=== PATIENT | male | born 1935 | race Caucasian/White ===

== ENCOUNTER 2017-08-19 09:32 | Inpatient (IN) | payer MEDICARE, OTHER ==
[2017-08-19] MEDS ORDERED: SODIUM CHLORIDE 0.9% 500 ML IV STA (10:22)
[2017-08-19] MEDS ORDERED: RX INFO: IV CONTRAST WAS GIVEN 1 EACH MISC MISCELLANE PRN (10:22)
[2017-08-19] MEDS ORDERED: ONDANSETRON 4 MG/2 ML VIAL IVP STA (10:22)
--- NOTE | 2017-08-19 10:24 | ED ---
General Adult HPI <Jer Kelly J - Last Filed: 08/19/17 12:26> - General Source: family, RN notes reviewed Mode of arrival: wheelchair Limitations: physical limitation <Fadia Chappell - Last Filed: 08/19/17 12:30> - General Chief complaint: Abdominal Pain Stated complaint: Nausea Time Seen by Provider: 08/19/17 10:12 - History of Present Illness Initial comments: 82-year-old male who is nonverbal due to a stroke in the past presents with chief complaint of abdominal pain. This started yesterday associated with vomiting. The doctor and referred here. Patient's weight is bedside. She states that he points to his right upper side for the pain. She states there was vomiting no blood in the vomit no change in bowel or bladder habits. No abdominal surgeries in the past. They state that the doctor they saw was concerned that it may see his gallbladder. Patient is unable to answer other questions regarding review of systems. Patient states he hasn't been complaining of anything else to her. (Fadia Chappell) - Related Data Home Medications Medication Instructions Recorded Confirmed Lisinopril [Prinivil] 40 mg PO DAILY 08/15/14 08/19/17 Sertraline [Zoloft] 100 mg PO DAILY 08/15/14 08/19/17 amLODIPine [Norvasc] 10 mg PO DAILY 08/15/14 08/19/17 Simvastatin [Zocor] 40 mg PO HS 05/29/15 08/19/17 levETIRAcetam [Keppra] 1,000 mg PO BID 10/23/15 08/19/17 Allopurinol [Zyloprim] 300 mg PO DAILY 12/15/15 08/19/17 Oxybutynin Chloride [Ditropan] 10 mg PO DAILY 12/15/15 08/19/17 Aspirin 325 mg PO DAILY 07/11/17 08/19/17 Atorvastatin Calcium [Lipitor] 10 mg PO DAILY 07/11/17 08/19/17 Dicyclomine [Bentyl] 10 mg PO DAILY 07/11/17 08/19/17 Isosorbide Mononitrate ER [Imdur] 30 mg PO DAILY 07/11/17 08/19/17 Previous Rx's Medication Instructions Recorded Tamsulosin [Flomax] 0.4 mg PO DAILY #30 cap 08/12/15 Allergies Allergy/AdvReac Type Severity Reaction Status Date / Time No Known Allergies Allergy Verified 08/19/17 10:23 Review of Systems ROS Other: All systems not noted in ROS Statement are negative. <Jer Kelly - Last Filed: 08/19/17 12:26> ROS Other: All systems not noted in ROS Statement are negative. <Fadia Chappell - Last Filed: 08/19/17 12:30> ROS Statement: Those systems with pertinent positive or pertinent negative responses have been documented in the HPI. 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 Lithotripsy 2012, 2013 Past Anesthesia/Blood Transfusion Reactions: No Reported Reaction Additional Past Anesthesia/Blood Transfusion Reaction / Comment(s): STOKE DURING CABG SURGERY Type of Cardiac Device: Permanent Pacemaker Device Placement Date:: 2014 Past Psychological History: No Psychological Hx Reported Smoking Status: Never smoker Past Alcohol Use History: None Reported Past Drug Use History: None Reported - Past Family History Father Family Medical History: Cancer, COPD Additional Family Medical History / Comment(s): prostate cancer Mother Additional Family Medical History / Comment(s): Heart valve replacement <Fadia Chappell - Last Filed: 08/19/17 12:30> General Exam Limitations: physical limitation General appearance: alert, in no apparent distress Head exam: Present: atraumatic, normocephalic, normal inspection Neck exam: Present: normal inspection. Absent: tenderness, meningismus, lymphadenopathy Respiratory exam: Present: normal lung sounds bilaterally. Absent: respiratory distress, wheezes, rales, rhonchi, stridor Cardiovascular Exam: Present: regular rate, normal rhythm, normal heart sounds. Absent: systolic murmur, diastolic murmur, rubs, gallop, clicks GI/Abdominal exam: Present: soft, tenderness (Mild to the right side), normal bowel sounds. Absent: distended, guarding, rebound, rigid Neurological exam: Present: alert Skin exam: Present: warm, dry, intact <Fadia Chappell - Last Filed: 08/19/17 12:30> Vital Signs 08/19/17 09:52 Temperature 98.6 F Pulse Rate 72 Respiratory 18 Rate Blood Pressure 162/80 O2 Sat by Pulse 98 Oximetry Medical Decision Making - Lab Data Result diagrams: 08/19/17 10:35 08/19/17 10:35 <Jer Kelly - Last Filed: 08/19/17 12:26> - Lab Data Result diagrams: 08/19/17 10:35 08/19/17 10:35 - Radiology Data Radiology results: report reviewed, image reviewed <Fadia Chappell - Last Filed: 08/19/17 12:30> - Medical Decision Making The patient was seen and examined. All diagnostics were reviewed. This felt as though he would require admission. Case is discussed with Dr. Valdes from internal medicine and she is agreeable with admission with GI to consult. The case also was discussed with the PA and agree with the findings as documented. ( Jer Kelly) 82-year-old male presents to the emergency department with a chief complaint of abdominal pain. This time CAT scan and lab results have been reviewed. At this time we will admit to the sound physicians in consult GI. This was discussed with the family and the on agreement the plan. (Fadia Chappell) - Lab Data Lab Results 08/19/17 08/19/17 08/19/17 Range/Units 10:35 10:35 10:35 WBC 11.7 H (3.8-10.6) k/uL RBC 4.25 L (4.30-5.90) m/uL Hgb 11.6 L (13.0-17.5) gm/dL Hct 38.1 L (39.0-53.0) % MCV 89.7 (80.0-100.0) fL MCH 27.2 (25.0-35.0) pg MCHC 30.3 L (31.0-37.0) g/dL RDW 14.2 (11.5-15.5) % Plt Count 293 (150-450) k/uL Neutrophils % 87 % Lymphocytes % 7 % Monocytes % 4 % Eosinophils % 1 % Basophils % 0 % Neutrophils # 10.1 H (1.3-7.7) k/uL Lymphocytes # 0.9 L (1.0-4.8) k/uL Monocytes # 0.5 (0-1.0) k/uL Eosinophils # 0.1 (0-0.7) k/uL Basophils # 0.0 (0-0.2) k/uL Hypochromasia Marked Poikilocytosis Slight PT (9.0-12.0) sec INR (<1.2) APTT (22.0-30.0) sec Sodium 137 (137-145) mmol/L Potassium 4.3 (3.5-5.1) mmol/L Chloride 99 (98-107) mmol/L Carbon Dioxide 27 (22-30) mmol/L Anion Gap 11 mmol/L BUN 18 (9-20) mg/dL Creatinine 0.76 (0.66-1.25) mg/dL Est GFR (MDRD) Af Amer >60 (>60 ml/min/1.73 sqM) Est GFR (MDRD) Non-Af >60 (>60 ml/min/1.73 sqM) Glucose 118 H (74-99) mg/dL Plasma Lactic Acid [place] 1.2 (0.7-2.0) mmol/L Calcium 9.3 (8.4-10.2) mg/dL Total Bilirubin 0.3 (0.2-1.3) mg/dL AST 16 L (17-59) U/L ALT 30 (21-72) U/L Alkaline Phosphatase 81 (38-126) U/L Total Protein 5.9 L (6.3-8.2) g/dL Albumin 3.6 (3.5-5.0) g/dL Amylase 35 (30-110) U/L Lipase 104 (23-300) U/L Urine Color Urine Appearance (Clear) Urine pH (5.0-8.0) Ur Specific [place] (1.001-1.035) Urine Protein (Negative) Urine Glucose (UA) (Negative) Urine Ketones (Negative) Urine Blood (Negative) Urine Nitrite (Negative) Urine Bilirubin (Negative) Urine Urobilinogen (<2.0) mg/dL Ur Leukocyte Esterase (Negative) 08/19/17 08/19/17 Range/Units 10:35 10:35 WBC (3.8-10.6) k/uL RBC (4.30-5.90) m/uL Hgb (13.0-17.5) gm/dL Hct (39.0-53.0) % MCV (80.0-100.0) fL MCH (25.0-35.0) pg MCHC (31.0-37.0) g/dL RDW (11.5-15.5) % Plt Count (150-450) k/uL Neutrophils % % Lymphocytes % % Monocytes % % Eosinophils % % Basophils % % Neutrophils # (1.3-7.7) k/uL Lymphocytes # (1.0-4.8) k/uL Monocytes # (0-1.0) k/uL Eosinophils # (0-0.7) k/uL Basophils # (0-0.2) k/uL Hypochromasia Poikilocytosis PT 9.6 (9.0-12.0) sec INR 1.0 (<1.2) APTT 24.8 (22.0-30.0) sec Sodium (137-145) mmol/L Potassium (3.5-5.1) mmol/L Chloride (98-107) mmol/L Carbon Dioxide (22-30) mmol/L Anion Gap mmol/L BUN (9-20) mg/dL Creatinine (0.66-1.25) mg/dL Est GFR (MDRD) Af Amer (>60 ml/min/1.73 sqM) Est GFR (MDRD) Non-Af (>60 ml/min/1.73 sqM) Glucose (74-99) mg/dL Plasma Lactic Acid [place] (0.7-2.0) mmol/L Calcium (8.4-10.2) mg/dL Total Bilirubin (0.2-1.3) mg/dL AST (17-59) U/L ALT (21-72) U/L Alkaline Phosphatase (38-126) U/L Total Protein (6.3-8.2) g/dL Albumin (3.5-5.0) g/dL Amylase (30-110) U/L Lipase (23-300) U/L Urine Color Light Yellow Urine Appearance Clear (Clear) Urine pH 6.0 (5.0-8.0) Ur Specific [place] 1.014 (1.001-1.035) Urine Protein Negative (Negative) Urine Glucose (UA) Negative (Negative) Urine Ketones Trace H (Negative) Urine Blood Negative (Negative) Urine Nitrite Negative (Negative) Urine Bilirubin Negative (Negative) Urine Urobilinogen <2.0 (<2.0) mg/dL Ur Leukocyte Esterase Negative (Negative) Disposition <Jer Kelly - Last Filed: 08/19/17 12:26> Decision Date: 08/19/17 Decision Time: 12:30 <Fadia Chappell - Last Filed: 08/19/17 12:30> Clinical Impression: Colitis, Abdominal pain Disposition: ADMITTED IP TO THIS HOSP Condition: Stable Referrals: Ariel Keith MD [Primary Care Provider] - 1-2 days
[2017-08-19 11:06] LABS: ALT 30 U/L (21-72); AST 16 U/L (17-59); Albumin 3.6 g/dL (3.5-5.0); Alkaline Phosphatase 81 U/L (38-126); Amylase 35 U/L (30-110); Anion Gap 11 mmol/L; Basophils % (A) 0 %; Blood Urea Nitrogen 18 mg/dL (9-20); Calcium 9.3 mg/dL (8.4-10.2); Carbon Dioxide 27 mmol/L (22-30); Chloride 99 mmol/L (98-107); Eosinophils # (A) 0.1 k/uL (0-0.7); Eosinophils % (A) 1 %; Glucose 118 mg/dL (74-99); HCT 38.1 % (39.0-53.0); HGB 11.6 gm/dL (13.0-17.5); Hypochromasia Marked; Lipase 104 U/L (23-300); Lymphocytes # (A) 0.9 k/uL (1.0-4.8); Lymphocytes % (A) 7 %; MCH 27.2 pg (25.0-35.0); MCHC 30.3 g/dL (31.0-37.0); MCV 89.7 fL (80.0-100.0); Mean Platelet Volume 7.2; Monocytes # (A) 0.5 k/uL (0-1.0); Monocytes % (A) 4 %; Neutrophils # (A) 10.1 k/uL (1.3-7.7); Neutrophils % (A) 87 %; Platelet Count 293 k/uL (150-450); Poikilocytosis Slight; Potassium 4.3 mmol/L (3.5-5.1); RBC 4.25 m/uL (4.30-5.90); RDW 14.2 % (11.5-15.5); Sodium 137 mmol/L (137-145); Total Bilirubin 0.3 mg/dL (0.2-1.3); Total Protein 5.9 g/dL (6.3-8.2); WBC 11.7 k/uL (3.8-10.6)
[2017-08-19 11:14] LABS: Partial Thromboplastin Time 24.8 sec (22.0-30.0); Prothrombin Time 9.6 sec (9.0-12.0)
[2017-08-19 12:07] LABS: Appearance,Urine Clear (Clear); Color,Urine Light Yellow; Glucose,Urine (UA) Negative (Negative); Protein,Urine Negative (Negative); Specific Gravity,Urine 1.014 (1.001-1.035)
--- NOTE | 2017-08-19 12:07 | CT ---
EXAMINATION TYPE: CT abdomen pelvis w con DATE OF EXAM: 08/19/2017 COMPARISON: 07/11/2017 HISTORY: Nausea, pain, prior abn CT of GB CT DLP: 1761.5 mGycm Automated exposure control for dose reduction was used. TECHNIQUE: Helical acquisition of images was performed from the lung bases through the pelvis. CONTRAST: Performed without Oral Contrast and with IV Contrast, patient injected with 100 mL of Omnipaque 300. FINDINGS: LUNG BASES: Chronic right pleural thickening, pleural calcifications, and right basilar atelectasis a s well as linear pleural parenchymal right middle lobe and lingular scarring are seen. Pleural parenc hymal scarring is also seen at the lung bases. Post CABG changes are noted of the mediastinum. There is a small hiatal hernia. Mildly enlarged right hilar lymph node measures 1.4 cm in addition to calci fied right hilar nodes. Pleural thickening is seen anteriorly as well around the right lung. LIVER/GB: Cholelithiasis is again demonstrated. No right upper quadrant fat stranding is seen. Arteri ally enhancing 5 mm hepatic lesion is seen on series 3 image 28 near the hepatic dome within the left lobe of the liver. This is wedge-shaped in may represent an arterial portal shunt. No other focal he patic lesions are seen. No intrahepatic biliary ductal dilatation. PANCREAS: Mild pancreatic parenchymal atrophy. No ductal dilatation. SPLEEN: Benign granulomas are scattered throughout the splenic parenchyma. ADRENALS: No significant abnormality is seen. KIDNEYS: There is chronic right UPJ obstruction possibly from stricturing with mild right hydronephro sis and large renal sinus cysts, unchanged from the prior. 1.7 cm lower pole right renal calculus is noted with at least 3 small left renal calculi measuring up to 4 mm. Left lower pole renal cyst is ag ain seen measuring approximately 3.8 cm. FREE AIR: No free air is visualized. REPRODUCTIVE ORGANS: No significant abnormality is seen URINARY BLADDER: No significant abnormality is seen. ADENOPATHY: No greater than 1 cm short axis lymph nodes are seen within the abdomen or pelvis. OSSEOUS STRUCTURES: Extensive degenerative changes are seen in the femoral acetabular joints, left g reater than right. Moderate multilevel degenerative changes of the lumbosacral spine and thoracolumba r spine are present. BOWEL: There is gastric dilatation within air-fluid and fat fluid level. This is similar to the prior exam. There is thickening of the descending duodenum such as on series 3 image 45 measuring up to 9 mm in thickness with perienteric inflammatory change as there is obscuration of the fat plane between the pancreatic head and the duodenum on series 3 image 43. Possible luminal narrowing is also seen w ithin the descending duodenum on series 3 image 38 through 42 and the lumen is not well-defined. This is also seen on coronal series 7 image 37 and 38 as a approximately 3.0 cm area of stricturing or na rrowing. OTHER: Bilateral mild retroareolar gynecomastia is noted. IMPRESSION: 1. MARKED GASTRECTASIS SECONDARY TO CIRCUMFERENTIAL THICKENING OF THE DESCENDING DUODENUM AND LUMINAL NARROWING. MILD INFLAMMATORY CHANGES ARE SEEN. DUODENITIS IS SUSPECTED OF INFLAMMATORY, INFECTIOUS, OR NEOPLASTIC ETIOLOGY. 2. CHRONIC RIGHT URETEROPELVIC OBSTRUCTION CREATING MILD RIGHT HYDRONEPHROSIS WITH BILATERAL RENAL CY STS AND RIGHT RENAL SINUS CYST. 3. CALCIFIED RIGHT PLEURAL PLAQUING, CHRONIC THICKENING AND RIGHT BASILAR OPACITY MAY REPRESENT ASBES TOS EXPOSURE. CT THORAX IS RECOMMENDED ON A NONEMERGENT BASIS FOR FULL EVALUATION OF THE CHEST.
[2017-08-19 12:08] LABS: Bilirubin,Urine Negative (Negative); Blood,Urine Negative (Negative); Ketones,Urine Trace (Negative); Leukocyte Esterase,Urine Negative (Negative); Nitrite,Urine Negative (Negative); Urobilinogen,Urine <2.0 mg/dL (<2.0)
[2017-08-19] MEDS ORDERED: PANTOPRAZOLE 40 MG/10 ML VIAL IVP STA (12:12)
[2017-08-19] MEDS ORDERED: NALOXONE 0.4 MG/ML 1 ML VIAL IV PRN (12:30)
[2017-08-19] MEDS ORDERED: HYDROmorphone 0.5 MG/0.5 ML SYRINGE IVP STA (12:54)
[2017-08-19] MEDS ORDERED: CALCIUM CARBONATE 500 MG CHEWABLE PO PRN (13:36)
[2017-08-19] MEDS ORDERED: ACETAMINOPHEN TAB 325 MG TAB PO PRN (13:36)
[2017-08-19] MEDS ORDERED: ONDANSETRON 4 MG/2 ML VIAL IVP PRN (13:36)
--- NOTE | 2017-08-19 14:01 | P.HPIM ---
History of Present Illness H&P Date: 08/19/17 Chief Complaint: abdominal pain Patient is an 82-year-old male with a past medical history of congestive heart failure, stroke with resultant aphasia and right-sided weakness , hypertension, seizure disorder, and prior kidney stones presented to the ER from Dr. Keith's office with complaints of abdominal pain. In the ER he underwent an extensive evaluation. He was found have a slightly elevated white blood cell count 11.7. CT of the abdomen and pelvis showed cholelithiasis, duodenitis, and mild right sided hydronephrosis. He was given IV fluids, Protonix, Zofran, and a dose of pain medications. Arrangements were made for admission. Patient seen and examined at bedside. He is nonverbal and answers all questions. She states that he has been struggling with abdominal pain since fall. Initially they thought it was due to some phantom limb pain from his prior BKA. He was seen here in June [address]. He followed up to Dr. Keith's office in a week and a half ago and was told that it was likely secondary to his gallstones. He was prescribed pain medicine. Yesterday he started having nausea and vomiting. call Dr. Keith who ordered a prescription of antinausea medicine, and told him not to eat or drink anything overnight. He was seen in the office this morning with his increased pain Dr. Keith sent him to the emergency department. His reports that his appetite has been decreasing since the fall. He has not ate much since last Friday. She states that he is complaining of the pain more regularly. He had a total of 2 episodes of vomiting yesterday. She has noted increased wheeze for the last 3 weeks but no definitive cough. She denies any choking episodes. Review of Systems Unable to obtain review of systems secondary to patient having a aphasia and not being able to follow commands consistently. As able to obtain in HPI. 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 Lithotripsy 2012, 2013 Past Anesthesia/Blood Transfusion Reactions: No Reported Reaction Additional Past Anesthesia/Blood Transfusion Reaction / Comment(s): STOKE DURING CABG SURGERY Type of Cardiac Device: Permanent Pacemaker Device Placement Date:: 2014 Past Psychological History: No Psychological Hx Reported Smoking Status: Never smoker Past Alcohol Use History: None Reported Past Drug Use History: None Reported Additional History: Lives with his , typically uses a sideboard and a power wheelchair. - Past Family History Father Family Medical History: Cancer, COPD Additional Family Medical History / Comment(s): prostate cancer Mother Additional Family Medical History / Comment(s): Heart valve replacement Medications and Allergies Home Medications Medication Instructions Recorded Confirmed Type Lisinopril [Prinivil] 40 mg PO DAILY 08/15/14 08/19/17 History Sertraline [Zoloft] 100 mg PO DAILY 08/15/14 08/19/17 History amLODIPine [Norvasc] 10 mg PO DAILY 08/15/14 08/19/17 History Simvastatin [Zocor] 40 mg PO HS 05/29/15 08/19/17 History Tamsulosin [Flomax] 0.4 mg PO DAILY #30 cap 08/12/15 08/19/17 Rx levETIRAcetam [Keppra] 1,000 mg PO BID 10/23/15 08/19/17 History Allopurinol [Zyloprim] 300 mg PO DAILY 12/15/15 08/19/17 History Oxybutynin Chloride [Ditropan] 10 mg PO DAILY 12/15/15 08/19/17 History Aspirin 325 mg PO DAILY 07/11/17 08/19/17 History Atorvastatin Calcium [Lipitor] 10 mg PO DAILY 07/11/17 08/19/17 History Dicyclomine [Bentyl] 10 mg PO DAILY 07/11/17 08/19/17 History Isosorbide Mononitrate ER [Imdur] 30 mg PO DAILY 07/11/17 08/19/17 History Allergies Allergy/AdvReac Type Severity Reaction Status Date / Time No Known Allergies Allergy Verified 08/19/17 10:23 Physical Exam Osteopathic Statement: *. No significant issues noted on an osteopathic structural exam other than those noted in the History and Physical/Consult. Vitals: Vital Signs Temp Pulse Resp BP Pulse Ox 08/19/17 09:52 98.6 F 72 18 162/80 98 Intake and Output 08/18/17 08/19/17 08/19/17 22:59 06:59 14:59 Other: Weight 83.915 kg Patient Weight 08/20/17 06:59 Weight 83.915 kg General: non toxic, mild distress due to pain, appears at stated age, normal weight Derm: no unusual rashes/lesions no unusual ecchymoses, warm, dry Head: atraumatic, normocephalic, symmetric Eyes: EOMI, no lid lag, anicteric sclera, pupils equal round reactive to light ENT: Nose and ears atraumatic, no thrush, no pharyngeal erythema Neck: No thyromegaly, no cervical lymphadenopathy, trachea midline, supple Mouth: no lip lesion, mucus membranes moist Cardiovascular: S1S2 reg, no murmur, positive posterior tibial pulse left leg, no edema, capillary refill less than 2 seconds Lungs: CTA bilateral, no rhonchi, no rales , no accessory muscle use Abdominal: soft, nontender to palpation, no guarding, no appreciable organomegaly, normal bowel sounds Ext: no gross muscle atrophy, muscle strength 5 out of 5 in LUE and LLE, contracture of RUE with strength 2-3/5, no contractures, right leg BKA Neuro: CN II-XI grossly intact, decreased light touch right face and right upper extremity, normal left face and left upper extremity Psych: Alert, awake, flat affect Results CBC & Chem 7: 08/19/17 10:35 08/19/17 10:35 Labs: Abnormal Lab Results - Last 24 Hours (Table) 08/19/17 08/19/17 08/19/17 Range/Units 10:35 10:35 10:35 WBC 11.7 H (3.8-10.6) k/uL RBC 4.25 L (4.30-5.90) m/uL Hgb 11.6 L (13.0-17.5) gm/dL Hct 38.1 L (39.0-53.0) % MCHC 30.3 L (31.0-37.0) g/dL Neutrophils # 10.1 H (1.3-7.7) k/uL Lymphocytes # 0.9 L (1.0-4.8) k/uL Glucose 118 H (74-99) mg/dL AST 16 L (17-59) U/L Total Protein 5.9 L (6.3-8.2) g/dL Urine Ketones Trace H (Negative) CT scan - abdomen: report reviewed CT scan - pelvis: report reviewed Thrombosis Risk Factor Assmnt - DVT/VTE Prophylaxis DVT/VTE Prophylaxis: Mechanical Prophylaxis ordered, Contraindicated - See note - Choose All That Apply Each Risk Factor Represents 3 Points: Age 75 years or older Thrombosis Risk Factor Assessment Total Risk Factor Score: 3 Thrombosis Risk Factor Assessment Level: Moderate Risk Assessment and Plan Assessment: Duodenitis - IVF - Protonix IVP - Full liquid diet - GI evaluation - antiemeitcs - no indication for ABX at this time Cholelithiasis - no signs of cholecystitis or cholangitis Anemia - check iron studies - follow CBC Chronic diastolic CHF, EF 50-55% - not on any diuretics at baseline - consult ACEI, not chronically on BB CVA - hold ASA due to possible need for scope - Statin ASCAD - ASA, Statin Seizure disorder - keppra HTN, controlled - continue home meds - follow BP Surrogate decision-maker: Rose Ayala CODE STATUS:Full, does not want to be kept alive if no hope for meaningful recovery DVT prophylaxis: SCDs Discussed with: Patient, , ED physician Anticipated discharge: 24-[address]: Home possible home health A total of 70 minutes was spent on the care of this complex patient more than 50 % of the time was spent in counseling and care coordination.
[2017-08-19] MEDS: DEXTROSE 5%-0.45% NACL 1,000 ML IV SCH (16:22)
[2017-08-19] MEDS: MORPHINE SULFATE 2 MG/ML SYRINGE IV PRN ×2 (18:48→22:15)
[2017-08-19] MEDS: PANTOPRAZOLE 40 MG/10 ML VIAL IV SCH (22:15)
[2017-08-19] MEDS: levETIRAcetam 500 MG TAB PO SCH (22:15)
[2017-08-20] MEDS: DEXTROSE 5%-0.45% NACL 1,000 ML IV SCH ×2 (05:39→17:07)
[2017-08-20] MEDS: levETIRAcetam 500 MG TAB PO SCH ×2 (08:39→19:17)
[2017-08-20] MEDS: ISOSORBIDE MONONITRATE ER 30 MG TAB.ER.24H PO SCH (08:39)
[2017-08-20] MEDS: TAMSULOSIN 0.4 MG CAP.ER.24H PO SCH (08:39)
[2017-08-20] MEDS: LISINOPRIL 20 MG TAB PO SCH (08:39)
[2017-08-20] MEDS: PANTOPRAZOLE 40 MG/10 ML VIAL IV SCH ×2 (08:39→19:17)
[2017-08-20] MEDS: amLODIPine 10 MG TAB PO SCH (08:40)
[2017-08-20 08:50] LABS: Anion Gap 5 mmol/L; Blood Urea Nitrogen 24 mg/dL (9-20); Calcium 8.4 mg/dL (8.4-10.2); Carbon Dioxide 23 mmol/L (22-30); Chloride 107 mmol/L (98-107); Glucose 103 mg/dL (74-99); Magnesium 1.8 mg/dL (1.6-2.3); Phosphorus 2.7 mg/dL (2.5-4.5); Potassium 4.8 mmol/L (3.5-5.1); Sodium 135 mmol/L (137-145)
[2017-08-20 09:00] LABS: HCT 29.7 % (39.0-53.0); Hypochromasia Marked; MCH 27.4 pg (25.0-35.0); MCHC 29.6 g/dL (31.0-37.0); MCV 92.6 fL (80.0-100.0); Mean Platelet Volume 8.1; Platelet Count 227 k/uL (150-450); RDW 15.5 % (11.5-15.5); WBC 8.8 k/uL (3.8-10.6)
[2017-08-20 09:14] LABS: HGB 8.8 gm/dL (13.0-17.5)
[2017-08-20 10:49] VITALS: BMI 23.7
--- NOTE | 2017-08-20 12:01 | P.PN ---
Subjective Progress Note Date: 08/20/17 Principal diagnosis: abdominal pain patient with some nausea today, no emesis, no fever, mild abdominal discomfort Objective - Vital Signs Vital signs: Vital Signs Temp 98.5 F 08/20/17 07:00 Pulse 91 08/20/17 08:00 Resp 18 08/20/17 08:00 BP 119/76 08/20/17 07:00 Pulse Ox 96 08/20/17 07:00 Intake & Output 08/19/17 08/20/17 08/20/17 18:59 06:59 18:59 Intake Total 400 Balance 400 Weight 83.915 kg 83.915 kg Intake: Intake, IV Titration 400 Amount Dextrose 5%-0.45% NaCl 1, 400 000 ml @ 75 mls/hr IV . [id number] BASILIO Rx#:[id number] Other: Voiding Method Urinal Urinal Urinal # Voids 3 - Exam gen:alert and oriented lungs:clear to auscultation heart:s1s2 abdomen:soft and depressible,tender to palpation in epigastric area ext:no edema - Labs CBC & Chem 7: 08/20/17 08:14 08/20/17 08:14 Labs: Abnormal Lab Results - Last 24 Hours (Table) 08/19/17 08/20/17 08/20/17 Range/Units 10:35 08:14 08:14 RBC 3.20 L (4.30-5.90) m/uL Hgb 8.8 L D (13.0-17.5) gm/dL Hct 29.7 L (39.0-53.0) % MCHC 29.6 L (31.0-37.0) g/dL Sodium 135 L (137-145) mmol/L BUN 24 H (9-20) mg/dL Glucose 103 H (74-99) mg/dL Urine Ketones Trace H (Negative) Microbiology - Last 24 Hours (Table) 08/19/17 10:35 Urine Culture - Preliminary Urine,Voided Assessment and Plan (1) Duodenitis Narrative/Plan: plan for egd today continue protonix Current Visit: Yes Status: Acute Code(s): K29.80 - DUODENITIS WITHOUT BLEEDING SNOMED Code(s): 67041924 (2) Chronic diastolic heart failure Narrative/Plan: compensated Current Visit: Yes Status: Acute Code(s): I50.32 - CHRONIC DIASTOLIC ( CONGESTIVE) HEART FAILURE SNOMED Code(s): 486733598 (3) Seizure Narrative/Plan: cont keppra stable, no seizure episodes Current Visit: Yes Status: Acute Code(s): R56.9 - UNSPECIFIED CONVULSIONS SNOMED Code(s): 80509133 (4) Hypertension Narrative/Plan: controlled continue norvasc,imdur,and lisinopril Current Visit: Yes Status: Acute Code(s): I10 - ESSENTIAL (PRIMARY) HYPERTENSION SNOMED Code(s): 70967521 (5) CAD (coronary artery disease) Narrative/Plan: off aspirin for egd conrtnue lipitor,imdur, will resume aspirin once egd results available Current Visit: No Status: Acute Code(s): I25.10 - ATHSCL HEART DISEASE OF [place] CORONARY ARTERY W/O ANG PCTRS SNOMED Code(s): 05977248 (6) History of CVA (cerebrovascular accident) Narrative/Plan: with residual aphasia with weakness resume aspirin post egd Current Visit: No Status: Acute Code(s): Z86.73 - PRSNL HX OF TIA (TIA), AND CEREB INFRC W/O RESID DEFICITS SNOMED Code(s): 899048891 (7) BPH (benign prostatic hyperplasia) Narrative/Plan: flomax Current Visit: Yes Status: Acute Code(s): N40.0 - BENIGN PROSTATIC HYPERPLASIA WITHOUT LOWER URINRY TRACT SYMP SNOMED Code(s): 226190480
[2017-08-20] MEDS: ALLOPURINOL 300 MG TAB PO SCH (12:57)
[2017-08-20] MEDS: ATORVASTATIN 10 MG TAB PO SCH (12:57)
[2017-08-20] MEDS: OXYBUTYNIN CHLORIDE 5 MG TAB PO SCH (12:58)
[2017-08-20] MEDS: SERTRALINE 100 MG TAB PO SCH (12:58)
--- NOTE | 2017-08-20 13:22 | P.CONS ---
History of Present Illness - Reason for Consult Consult date: 08/20/17 abdominal pain Requesting physician: Rebecca Matamoros - History of Present Illness 82-year-old gentleman with a history of prostate carcinoma radiation, CVA with right-sided weakness and dysphasia, ureteral calculi, CHF, hyperlipidemia, hypertension, seizure disorder, PAD/RBKA, CAD/CABG. Most of history obtained from . According to the he has had persistent epigastric upper abdominal pain for at least 2 months. 2 emesis on Friday nonbloody in nature. Prior to that no history of emesis. Approximate 5 pound weight loss over the last 3 weeks secondary to decreased appetite. Denies hematemesis hematochezia melena. No fever or chills. No history of this type of pain. No history of GERD dyspepsia and reflux. CT abdomen and pelvis reported cholelithiasis. 5 mm hepatic lesion near the dome within the left lobe of the liver enhanced arterially may represent arterial portal shunt. No other focal hepatic lesions seen. No intrahepatic biliary ductal dilatation. Chronic right UPJ obstruction with mild right hydronephrosis and renal cysts. Gastric dilatation with air-fluid and fat fluid level. Thickening of the descending duodenum measuring up to 9 mm in thickness with perienteric inflammatory change as there is obscuration of the fat plane between the pancreatic head and duodenum. Mild pancreatic parenchymal atrophy. No ductal dilatation seen. No obvious pancreatic masses mentioned. Possible luminal narrowing is also seen within the descending duodenum approximate 3 cm area of stricturing and/or narrowing. Inflammatory infectious or neoplastic etiology cannot be excluded. Review of Systems Constitutional: Denies fever, chills, sweats, weight gain, or loss. HEENT: Negative for migraines, blurred vision or loss, earaches, drainage, tinnitus, oral mucosal lesions, dysphagia, or odynophagia. Cardiac: CAD CABG. PAD/RBKA. Negative for chest pain, arrhythmias, or palpitation. Respiratory: Negative for shortness of breath, hemoptysis, cough, or sputum production. Gastrointestinal: See HPI for pertinent findings. Genitourinary: Proatate carcinoma radiation. Chronic UPJ obstruction/stones. Negative for hematuria, urgency, frequency, polyuria, dysuria, or penile discharge. Musculoskeletal: Negative for muscle aches, swelling, arthritis, and arthralgias. Neurologic: CVA with right-sided weakness.. Endocrine: Negative for thyroid problems. Skin: Negative for rash or itching. 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 "stroke during cagb sx, stated pt has lost vision in rt eye, some retirement memory loss, does'nt write and does'nt recognize alphabet letters but able to read certain words on a menu or on tv. 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 Lithotripsy 2012, 2013 Past Anesthesia/Blood Transfusion Reactions: No Reported Reaction Additional Past Anesthesia/Blood Transfusion Reaction / Comm: STROKE DURING CABG SURGERY Type of Cardiac Device: Permanent Pacemaker Device Placement Date:: 2014 Smoking Status: Never smoker - Past Family History Father Family Medical History: Cancer, COPD Additional Family Medical History / Comment(s): prostate cancer Mother Additional Family Medical History / Comment(s): Heart valve replacement Medications and Allergies Home Medications Medication Instructions Recorded Confirmed Type Lisinopril [Prinivil] 40 mg PO DAILY 08/15/14 08/19/17 History Sertraline [Zoloft] 100 mg PO DAILY 08/15/14 08/19/17 History amLODIPine [Norvasc] 10 mg PO DAILY 08/15/14 08/19/17 History Simvastatin [Zocor] 40 mg PO HS 05/29/15 08/19/17 History Tamsulosin [Flomax] 0.4 mg PO DAILY #30 cap 08/12/15 08/19/17 Rx levETIRAcetam [Keppra] 1,000 mg PO BID 10/23/15 08/19/17 History Allopurinol [Zyloprim] 300 mg PO DAILY 12/15/15 08/19/17 History Oxybutynin Chloride [Ditropan] 10 mg PO DAILY 12/15/15 08/19/17 History Aspirin 325 mg PO DAILY 07/11/17 08/19/17 History Atorvastatin Calcium [Lipitor] 10 mg PO DAILY 07/11/17 08/19/17 History Dicyclomine [Bentyl] 10 mg PO DAILY 07/11/17 08/19/17 History Isosorbide Mononitrate ER [Imdur] 30 mg PO DAILY 07/11/17 08/19/17 History Allergies Allergy/AdvReac Type Severity Reaction Status Date / Time No Known Allergies Allergy Verified 08/19/17 10:23 Physical Exam Vitals: Vital Signs Temp Pulse Resp BP Pulse Ox 08/20/17 08:00 91 18 08/20/17 07:00 98.5 F 91 18 119/76 96 08/19/17 21:49 97.0 F L 94 16 103/68 95 08/19/17 16:51 98.8 F 86 18 162/79 93 L 08/19/17 16:00 16 Intake and Output 08/19/17 08/20/17 08/20/17 22:59 06:59 14:59 Intake Total 400 Balance 400 Intake: Intake, IV Titration 400 Amount Dextrose 5%-0.45% NaCl 1, 400 000 ml @ 75 mls/hr IV . [id number] [facility] Rx#:[id number] Other: Voiding Method Urinal Urinal Urinal # Voids 3 3 Weight 83.915 kg 83.915 kg Patient Weight 08/21/17 06:59 Weight 83.915 kg General appearance: The patient is alert, oriented, in no acute distress. HET: Head is normocephalic and atraumatic. Pupils are equal and reactive. Oropharynx is clear without lesions. Neck: Supple without lymphadenopathy. Trachea midline. Heart: S1 S2. Regular rate and rhythm. Lungs: No crackles or wheezes are heard. Abdomen: Soft, nontender, nondistended with bowel sounds. No peritoneal signs. No palpable organomegaly or masses. Extremities: No edema. Neurological: Right-sided weakness.. Results CBC & Chem 7: 08/20/17 08:14 08/20/17 08:14 Labs: Abnormal Lab Results - Last 24 Hours (Table) 08/20/17 08/20/17 Range/Units 08:14 08:14 RBC 3.20 L (4.30-5.90) m/uL Hgb 8.8 L D (13.0-17.5) gm/dL Hct 29.7 L (39.0-53.0) % MCHC 29.6 L (31.0-37.0) g/dL Sodium 135 L (137-145) mmol/L BUN 24 H (9-20) mg/dL Glucose 103 H (74-99) mg/dL Microbiology - Last 24 Hours (Table) 08/19/17 10:35 Urine Culture - Preliminary Urine,Voided CT scan - abdomen: report reviewed (Dr. Eudardo) Assessment and Plan (1) Abdominal pain Narrative/Plan: Epigastric upper abdominal pain 1-2 months duration with new onset of nonbloody emesis. CT imaging indicated duodenal wall thickening stricturing. Differentials to be considered but not limited to is gastric outlet obstruction secondary to benign duodenal stricture disease versus possible malignancy. Additionally pancreatic head pathology possible mass effect cannot be entirely excluded. Current Visit: Yes Status: Acute Code(s): R10.9 - UNSPECIFIED ABDOMINAL PAIN SNOMED Code(s): 52797725 (2) Hepatic lesion Narrative/Plan: Arterially enhancing 5 mm hepatic lesion near the hepatic dome within the left lobe of the liver may represent arterial portal shunt. No other focal hepatic lesions were seen per CT. No intrahepatic biliary ductal dilatation. Current Visit: Yes Status: Acute Code(s): K76.9 - LIVER DISEASE, UNSPECIFIED SNOMED Code(s): 093535612 Plan: 1. EGD evaluation. We'll obtain CEA/ CA-19-9 markers. 2. Nothing by mouth. Protonix 40 mg IV daily. 3. In regards to hepatic lesions will continue to follow closely consideration for MRI. The operations manager station has discussed the risks, benefits and alternative therapies for the above-mentioned procedure and for both sedation/analgesia as well as necessary blood product administration, if indicated, as they pertain to this patient. The patient has indicated understanding and acceptance of the risks and procedures discussed. Thank you for this kind referral and the opportunity to participate in the care of your patient. This consultation was discussed with Dr. Eduardo. The impression and plan of care have been directed as dictated.
[2017-08-20] MEDS ORDERED: IV FLUID CONTINUATION 1,000 ML IV ONE (14:08)
--- NOTE | 2017-08-20 14:51 | P.PCN ---
Date of Procedure: 08/20/17 Procedure(s) Performed: Procedure: Esophagogastroduodenoscopy and biopsy. Preoperative diagnosis: Epigastric pain, nausea and vomiting and abnormal CT. Postoperative diagnosis: Large duodenal ulcer involving the post bulbar area and proximal descending duodenum with evidence of partial obstruction including some retained food material, debris and secretions in the duodenal bulb and stomach with evidence of changes in the esophagus consistent with stomach content regurgitation. Preparation and sedation: Was provided by anesthesia. Brief clinical history: The patient is an 82-year-old male with a history of prostate carcinoma radiation, CVA with right-sided weakness and dysphasia, ureteral calculi, CHF, hyperlipidemia, hypertension, seizure disorder, PAD/RBKA , CAD/CABG, who has had persistent epigastric upper abdominal pain for at least 2 months. Had 2 emesis two days prior to admission, nonbloody in nature. Prior to that no history of emesis. Approximate 5 pound weight loss over the last 3 weeks secondary to decreased appetite. Denies hematemesis, hematochezia or melena. No fever or chills. No history of this type of pain. No history of GERD dyspepsia and reflux. CT of the abdomen and pelvis reported cholelithiasis, 5 mm hepatic lesion near the dome within the left lobe of the liver enhanced arterially may represent arterial portal shunt. No other focal hepatic lesions seen. No intrahepatic biliary ductal dilatation. Chronic right UPJ obstruction with mild right hydronephrosis and renal cysts. Gastric dilatation with air-fluid level. Thickening of the descending duodenum measuring up to 9 mm in thickness with perienteric inflammatory change as there is obscuration of the fat plane between the pancreatic head and duodenum. Mild pancreatic parenchymal atrophy. No ductal dilatation seen. No obvious pancreatic masses mentioned. Possible luminal narrowing is also seen within the descending duodenum approximate 3 cm area of stricturing and/or narrowing. Inflammatory infectious or neoplastic etiology cannot be excluded. The details are summarized in the history and physical and dictated consultation and progress. This procedure is planned to define the causes of the symptoms of this patient and his CT findings. Procedure: With the patient on his left lateral decubitus position and after informed consent and adequate sedation, I passed the Olympus-GIF 160 video upper endoscope through the cricopharyngeus down the esophagus. GE junction was around 41 cm from the incisors and there was a 2 cm hiatal hernia. The esophagus showed diffuse edema and exudation consistent with chronic regurgitation of gastric contents which I have frequently noted in patients with partial/complete gastric outlet obstruction. The endoscope was then advanced into the stomach which was insufflated with air and inspected in detail including the retroflex view in the cardia. There was evidence of partial obstruction with retained food and debris and secretions in the stomach. As the endoscope was advanced into the duodenum, a large duodenal ulcer was noted involving the duodenal bulb and the descending duodenum along the medial wall with partial obstruction but with no hindrance to the advancement of the endoscope into the descending duodenum. There was evidence of partial obstruction in the duodenum with fluid secretions and debris in the duodenal bulb. The ulcer manifested signs of prior bleeding but there was no evidence of bleeding at the time of the exam. There was no dark protuberances, clots or oozing or blood. I obtained multiple pictures of the ulcer and biopsies along the edges to rule out malignancy. There was no spontaneous bleeding or other significant findings. The patient tolerated the procedure well and did not have any immediate complications. Plan: I summarized the findings to the patient and his family. Will await biopsy results and the cancer markers ordered earlier. In the meantime, will continue intensive therapy with PPI and consider placing of an NG tube for intermittent suction, surgical evaluation and nutritional support.
[2017-08-20] MEDS: MORPHINE SULFATE 2 MG/ML SYRINGE IV PRN ×2 (16:48→20:58)
[2017-08-20] MEDS: HYDROcodone/APAP 5-325MG 1 EACH TAB PO PRN (19:17)
[2017-08-21] MEDS: HYDROcodone/APAP 5-325MG 1 EACH TAB PO PRN (00:09)
[2017-08-21] MEDS: MORPHINE SULFATE 2 MG/ML SYRINGE IV PRN ×2 (03:15→09:18)
[2017-08-21 03:20] LABS: Cancer Antigen 19-9 6.5 U/mL (0.0-34.9)
[2017-08-21] MEDS: DEXTROSE 5%-0.45% NACL 1,000 ML IV SCH ×2 (05:55→20:05)
[2017-08-21] MEDS: SERTRALINE 100 MG TAB PO SCH (07:49)
[2017-08-21] MEDS: amLODIPine 10 MG TAB PO SCH (07:49)
[2017-08-21] MEDS: TAMSULOSIN 0.4 MG CAP.ER.24H PO SCH (07:49)
[2017-08-21] MEDS: LISINOPRIL 20 MG TAB PO SCH (07:50)
[2017-08-21] MEDS: ISOSORBIDE MONONITRATE ER 30 MG TAB.ER.24H PO SCH (07:50)
[2017-08-21] MEDS: levETIRAcetam 500 MG TAB PO SCH ×2 (07:50→21:02)
[2017-08-21] MEDS: OXYBUTYNIN CHLORIDE 5 MG TAB PO SCH (07:50)
[2017-08-21] MEDS: ALLOPURINOL 300 MG TAB PO SCH (07:50)
[2017-08-21] MEDS: PANTOPRAZOLE 40 MG/10 ML VIAL IV SCH ×2 (07:51→21:02)
[2017-08-21] MEDS: ATORVASTATIN 10 MG TAB PO SCH (07:51)
--- NOTE | 2017-08-21 10:12 | P.PN ---
Subjective Progress Note Date: 08/21/17 Principal diagnosis: Abdominal pain nausea vomiting Status post EGD evaluation yesterday. For epigastric pain nausea vomiting and abnormal CT. Large nonbleeding duodenal ulcer involving the postbulbar area and proximal descending duodenum with evidence of partial obstruction was identified with retained food debris. Evidence of changes in the esophagus consistent with reflux. CEA 1.4. CA-19-9 6.5. Tolerating clear liquids. Nurse reports no episodes of emesis or bleeding. Hemoglobin decreased to 8.8 yesterday. CBC pending. Objective - Vital Signs Vital signs: Vital Signs Temp 98 F 08/21/17 07:00 Pulse 86 08/21/17 07:00 Resp 20 08/21/17 07:00 BP 116/74 08/21/17 07:00 Pulse Ox 96 08/21/17 07:00 Intake & Output 08/20/17 08/21/17 08/21/17 18:59 06:59 18:59 Intake Total 675 900 Balance 675 900 Weight 83.915 kg Intake: IV 150 900 Dextrose 5%-0.45% NaCl 1, 900 000 ml @ 75 mls/hr IV . [id number] [facility] Rx#:[id number] Intake, IV Titration 525 Amount Dextrose 5%-0.45% NaCl 1, 525 000 ml @ 75 mls/hr IV . [id number] [facility] Rx#:[id number] Other: Voiding Method Urinal Urinal # Voids 1 - Exam General appearance: The patient is alert, oriented, in no acute distress. HET: Head is normocephalic and atraumatic. Pupils are equal and reactive. Oropharynx is clear without lesions. Neck: Supple without lymphadenopathy. Trachea midline. Heart: S1 S2. Regular rate and rhythm. Lungs: No crackles or wheezes are heard. Abdomen: Soft, nontender, nondistended with bowel sounds. No peritoneal signs. No palpable organomegaly or masses. Extremities: Right BKA. No edema. Neurological: Right-sided weakness. - Labs CBC & Chem 7: 08/20/17 08:14 08/20/17 08:14 Labs: Microbiology - Last 24 Hours (Table) 08/19/17 10:35 Urine Culture - Final Urine,Voided 08/19/17 10:35 Blood Culture - Preliminary Blood No Growth after 24 hours Assessment and Plan (1) Duodenal ulcer Current Visit: Yes Status: Acute Code(s): K26.9 - DUODENAL ULCER, UNSP ACUTE OR CHRONIC, W/O HEMOR OR PERF SNOMED Code(s): 25333670 (2) Partial gastric outlet obstruction Current Visit: Yes Status: Acute Code(s): K31.1 - ADULT HYPERTROPHIC PYLORIC STENOSIS SNOMED Code(s): 150904611 (3) Hepatic lesion Narrative/Plan: Arterially enhancing 5 mm hepatic lesion near the hepatic dome within the left lobe of the liver may represent arterial portal shunt. No other focal hepatic lesions were seen per CT. No intrahepatic biliary ductal dilatation. Current Visit: Yes Status: Acute Code(s): K76.9 - LIVER DISEASE, UNSPECIFIED SNOMED Code(s): 233673136 (4) Acute blood loss anemia Current Visit: Yes Status: Acute Code(s): D62 - ACUTE POSTHEMORRHAGIC ANEMIA SNOMED Code(s): 444193143 (5) Abdominal pain Narrative/Plan: Secondary to partial gastric outlet obstruction and duodenal ulcer disease Current Visit: Yes Status: Acute Code(s): R10.9 - UNSPECIFIED ABDOMINAL PAIN SNOMED Code(s): 77021367 Plan: 1. Protonix 40 mg IV twice a day. 2. Liquid diet with protein supplementation. 3. Await EGD biopsies benign versus malignant pathology. Tumor markers within normal limits. 4. CBC monitoring. 5. Will follow closely with you. Assessment and plan a care discussed with Dr. Eduardo
[2017-08-21 11:35] LABS: Basophils % (A) 0 %; Eosinophils % (A) 0 %; HCT 33.5 % (39.0-53.0); HGB 9.9 gm/dL (13.0-17.5); Hypochromasia Marked; Lymphocytes # (A) 0.4 k/uL (1.0-4.8); Lymphocytes % (A) 3 %; MCH 26.8 pg (25.0-35.0); MCHC 29.6 g/dL (31.0-37.0); MCV 90.5 fL (80.0-100.0); Mean Platelet Volume 7.6; Monocytes # (A) 0.6 k/uL (0-1.0); Monocytes % (A) 4 %; Neutrophils # (A) 14.6 k/uL (1.3-7.7); Neutrophils % (A) 93 %; Platelet Count 253 k/uL (150-450); Poikilocytosis Slight; RDW 14.4 % (11.5-15.5); WBC 15.8 k/uL (3.8-10.6)
[2017-08-21 11:52] LABS: Ovalocytes Present; Poikilocytosis (M) Present; Polychromasia Present
--- NOTE | 2017-08-21 12:51 | P.PN ---
Subjective Progress Note Date: 08/21/17 Principal diagnosis: abdominal pain no appetitie, some pain, no nausea Objective - Vital Signs Vital signs: Vital Signs Temp 98 F 08/21/17 07:00 Pulse 86 08/21/17 07:00 Resp 20 08/21/17 07:00 BP 116/74 08/21/17 07:00 Pulse Ox 96 08/21/17 07:00 Intake & Output 08/20/17 08/21/17 08/21/17 18:59 06:59 18:59 Intake Total 675 900 Balance 675 900 Weight 83.915 kg Intake: IV 150 900 Dextrose 5%-0.45% NaCl 1, 900 000 ml @ 75 mls/hr IV . [id number] [facility] Rx#:[id number] Intake, IV Titration 525 Amount Dextrose 5%-0.45% NaCl 1, 525 000 ml @ 75 mls/hr IV . [id number] [facility] Rx#:[id number] Other: Voiding Method Urinal Urinal # Voids 1 - Exam gen:alert and oriented lungs:clear to auscultation heart:s1s2 abdomen:soft and depressible,some tenderness to palpation in epigastric area ext:no edema - Labs CBC & Chem 7: 08/21/17 10:52 08/20/17 08:14 Labs: Abnormal Lab Results - Last 24 Hours (Table) 08/21/17 Range/Units 10:52 WBC 15.8 H (3.8-10.6) k/uL RBC 3.70 L (4.30-5.90) m/uL Hgb 9.9 L (13.0-17.5) gm/dL Hct 33.5 L (39.0-53.0) % MCHC 29.6 L (31.0-37.0) g/dL Neutrophils # 14.6 H (1.3-7.7) k/uL Lymphocytes # 0.4 L (1.0-4.8) k/uL Microbiology - Last 24 Hours (Table) 08/19/17 10:35 Urine Culture - Final Urine,Voided 08/19/17 10:35 Blood Culture - Preliminary Blood No Growth after 24 hours Assessment and Plan (1) Duodenal ulcer Narrative/Plan: Continue PPI Clear liquids Await biopsy Signs of outlet obstruction We'll consult general surgery for opinion Current Visit: Yes Status: Acute Code(s): K26.9 - DUODENAL ULCER, UNSP ACUTE OR CHRONIC, W/O HEMOR OR PERF SNOMED Code(s): 87183667 (2) Chronic diastolic heart failure Current Visit: Yes Status: Acute Code(s): I50.32 - CHRONIC DIASTOLIC ( CONGESTIVE) HEART FAILURE SNOMED Code(s): 921141709 (3) Seizure Narrative/Plan: cont keppra stable, no seizure episodes Current Visit: Yes Status: Acute Code(s): R56.9 - UNSPECIFIED CONVULSIONS SNOMED Code(s): 85846581 (4) Hypertension Narrative/Plan: controlled continue norvasc,imdur,and lisinopril Current Visit: Yes Status: Acute Code(s): I10 - ESSENTIAL (PRIMARY) HYPERTENSION SNOMED Code(s): 52081855 (5) CAD (coronary artery disease) Narrative/Plan: off aspirin for egd conrtnue lipitor,imdur, will resume aspirin once egd results available Current Visit: No Status: Acute Code(s): I25.10 - ATHSCL HEART DISEASE OF [place] CORONARY ARTERY W/O ANG PCTRS SNOMED Code(s): 50876516 (6) History of CVA (cerebrovascular accident) Narrative/Plan: with residual aphasia with weakness resume aspirin once okay with GI Current Visit: No Status: Acute Code(s): Z86.73 - PRSNL HX OF TIA (TIA), AND CEREB INFRC W/O RESID DEFICITS SNOMED Code(s): 106600708 (7) BPH (benign prostatic hyperplasia) Narrative/Plan: flomax Current Visit: Yes Status: Acute Code(s): N40.0 - BENIGN PROSTATIC HYPERPLASIA WITHOUT LOWER URINRY TRACT SYMP SNOMED Code(s): 603574286
[2017-08-21] MEDS: SUCRALFATE 1 GM TAB PO SCH ×3 (13:07→21:02)
--- NOTE | 2017-08-21 15:26 | P.GSCN ---
History of Present Illness Consult date: 08/21/17 Reason for Consult: Output obstruction History of present illness: 82-year-old male being seen at the request of the attending for a surgical eval after patient had undergone an EGD with biopsy as part of a workup for epigastric pain nausea vomiting and an abnormal CAT scan. The findings showed a large duodenal ulcer involving the post pulmonary area with evidence of a partial obstruction including some retained food debris and secretions in the duodenum bulb changes in the esophagus consistent with stomach contents. Patient reportedly had been experiencing for the past several months left lower quadrant abdominal pain. Patient has a history of prostate cancer with radiation. With a CVA right side weakness with dysphagia. Seizure disorder. 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 Coronary artery disease. Patient had been experiencing persistent epigastric discomfort as mentioned for the past several months. Patient lives at home with his according to the patient had been experiencing nausea with epigastric discomfort Review of Systems Essentially unremarkable except as mentioned in the present illness Past Medical History Past Medical History: Cancer, Heart Failure, CVA/TIA, GERD/Reflux, Hyperlipidemia, Hypertension, Memory Impairment, Seizure Disorder, Vascular Disorder Additional Past Medical History / Comment(s): PAD WITH ULCERS TO RIGHT LOWER EXTREMITY RESULTING IN RIGHT BKA-uses a slide board at home to transfer from bed to chair, multiple kidney stones , prostate cancer had radiation. "stroke during cagb sx, stated pt has lost vision in rt eye, some fdc memory loss, does'nt write and does'nt recognize alphabet letters but able to read certain words on a menu or on tv. History of Any Multi-Drug Resistant Organisms: None Reported Past Surgical History: Coronary Bypass/CABG, Pacemaker Additional Past Surgical History / Comment(s): RIGHT LEG AMPUTATED 10/2013 pacemaker 2015, 2 top front teeth are dental implants, colonoscopy,rt hydrocele , cystoscopy/ureteroscopy/lithotripsy, triple vesel cabg, thoracentesis. Lithotripsy 2012, 2014 Past Anesthesia/Blood Transfusion Reactions: No Reported Reaction Additional Past Anesthesia/Blood Transfusion Reaction / Comm: STROKE DURING CABG SURGERY Type of Cardiac Device: Permanent Pacemaker Device Placement Date:: 2014 Smoking Status: Never smoker - Past Family History Father Family Medical History: Cancer, COPD Additional Family Medical History / Comment(s): prostate cancer Mother Additional Family Medical History / Comment(s): Heart valve replacement Medications and Allergies Home Medications Medication Instructions Recorded Confirmed Type Lisinopril [Prinivil] 40 mg PO DAILY 08/15/14 08/19/17 History Sertraline [Zoloft] 100 mg PO DAILY 08/15/14 08/19/17 History amLODIPine [Norvasc] 10 mg PO DAILY 08/15/14 08/19/17 History Simvastatin [Zocor] 40 mg PO HS 05/29/15 08/19/17 History Tamsulosin [Flomax] 0.4 mg PO DAILY #30 cap 08/12/15 08/19/17 Rx levETIRAcetam [Keppra] 1,000 mg PO BID 10/23/15 08/19/17 History Allopurinol [Zyloprim] 300 mg PO DAILY 12/15/15 08/19/17 History Oxybutynin Chloride [Ditropan] 10 mg PO DAILY 12/15/15 08/19/17 History Aspirin 325 mg PO DAILY 07/11/17 08/19/17 History Atorvastatin Calcium [Lipitor] 10 mg PO DAILY 07/11/17 08/19/17 History Dicyclomine [Bentyl] 10 mg PO DAILY 07/11/17 08/19/17 History Isosorbide Mononitrate ER [Imdur] 30 mg PO DAILY 07/11/17 08/19/17 History Allergies Allergy/AdvReac Type Severity Reaction Status Date / Time No Known Allergies Allergy Verified 08/19/17 10:23 Surgical - Exam Vital Signs Temp Pulse Resp BP Pulse Ox 98.6 F 72 18 162/80 98 08/19/17 09:52 08/19/17 09:52 08/19/17 09:52 08/19/17 09:52 08/19/17 09:52 Physical exam 82-year-old male patient being seen with at the bedside currently is awake attempting to communicate concerned that the patient's mentation is different than baseline Lungs diminished at the bases otherwise adequate air movement Heart S1-S2 audible regular Abdomen soft nontender no nausea no vomiting Extremities a right BKA no edema to lower extremities Results - Labs 08/21/17 10:52 08/20/17 08:14 Abnormal Lab Results - Last 24 Hours (Table) 08/21/17 Range/Units 10:52 WBC 15.8 H (3.8-10.6) k/uL RBC 3.70 L (4.30-5.90) m/uL Hgb 9.9 L (13.0-17.5) gm/dL Hct 33.5 L (39.0-53.0) % MCHC 29.6 L (31.0-37.0) g/dL Neutrophils # 14.6 H (1.3-7.7) k/uL Lymphocytes # 0.4 L (1.0-4.8) k/uL Microbiology - Last 24 Hours (Table) 08/19/17 10:35 Blood Culture - Preliminary Blood No Growth after 48 hours 08/19/17 10:35 Urine Culture - Final Urine,Voided Assessment and Plan Assessment: Impression History prostate cancer with radiation History of a CVA with right-sided weakness and dysphasia Status post EGD with biopsy done on August 20 showed large duodenal ulcer involving the post bulbar area and proximal descending duodenum with evidence of partial obstruction including retained food debris consistent with reflux Present on admission abdominal pain with nausea vomiting Acute blood loss anemia Partial gastric outlet obstruction per EGD Plan Agree with protonic 40 IV twice a day Await EGD biopsies pending Liquid diet with protein supplements Aspiration precautions Further surgical recommendations after surgical eval by Dr. moreno DVT and GI prophylaxis Surgical consultation note dictated for dr moreno The above impression and plan of care have been discussed and directed by signing physician. Saundra Kramer nurse practitioner acting as scribe for signing physician.
[2017-08-21 15:52] LABS: Glucose,Whole Blood 178 mg/dL (75-99)
[2017-08-21] MEDS ORDERED: RX INFO: IV CONTRAST WAS GIVEN 1 EACH MISC MISCELLANE PRN ×2 (15:55→15:56)
--- NOTE | 2017-08-21 16:03 | P.PN ---
Progress Note - Text Progress Note Date: 08/21/17 Called to evaluate patient who had an episode where he was thought he was flailing around. Unclear reason whether patient was short of breath. But does not agree that he was short of breath. After this describes that patient is not acting right. He is usually able to follow commands better. No chest pain no palpitations. On exam [place] described patient is seems to be anxious not following commands appropriately even from the . Stroke alert was called. And CT of the head CTA of the head and neck were ordered.
--- NOTE | 2017-08-21 16:39 | CT ---
EXAMINATION TYPE: CT brain wo con DATE OF EXAM: 08/21/2017 COMPARISON: NONE HISTORY: Altered mental status. CT DLP: 1070.[address] of the brain was performed. The ventricles, basal cisterns and sulci overlying the cerebral convexities demonstrate moderate enla rgement. Remote insult left MCA territory. There is no evidence for intracranial hemorrhage or sulcal effacement. There is decreased attenuation about the periventricular white matter and deep white matter of both c erebral hemispheres, compatible with chronic small vessel ischemia. Differential diagnosis does inclu de demyelination. No mass effects are seen.No midline shift. Osseous calvarium is intact. If symptoms persist consider MRI. IMPRESSION: 1. Age related atrophic and chronic small vessel ischemic change without acute intracranial process s een at this time.
--- NOTE | 2017-08-21 16:39 | CT ---
EXAMINATION TYPE: CT angio head neck DATE OF EXAM: 08/21/2017 COMPARISON: NONE HISTORY: Altered mental status. CT DLP: 419.8 mGycm CONTRAST: Performed with IV Contrast, patient injected with 65 mL of Omnipaque 350. Combination Contrast CTA cervical carotids and [place] CTA cervical carotids. Technical diff iculties with the R images not available for review limiting diagnostic accuracy. Right carotid system: Mild plaque is seen of the right common carotid artery. There is mild plaque a lso noted at the carotid bulb and proximal ICA. No significant diameter reduction. ECA is patent. Right vertebral artery appears unremarkable. Left carotid system: Mild plaque is seen of the left common carotid artery. There is moderate to sev ere plaque also noted at the carotid bulb and proximal ICA. Occlusion of the left internal carotid a rtery. ECA is patent. Left vertebral artery appears unremarkable. IMPRESSION: 1. Occlusion of the left internal carotid artery. Please note the VR data set is not available for re view limiting the diagnostic accuracy of this evaluation. 2. Plaque at the right carotid bulb and proximal right ICA without hemodynamically significant stenos is. CTA [place] with 3-D reconstruction Contrast CTA of the [place] was performed 3-D reconstruction imaging obtained at a separate workstation. Findings confirm occlusion left internal carotid artery. Right internal carotid artery is patent. [place] ited retrograde filling of the left middle cerebral artery. Nonvisualization of the A1 segment left a nterior cerebral artery and posterior communicating artery. The right middle cerebral artery as well as the A2 segments anterior cerebral arteries are patent. Posterior circulation is patent. I do not s ee evidence for sizable aneurysm or vascular malformation. Please note MRI provides greater sensitiv ity and specificity. IMPRESSION: 1. Occlusion left internal carotid artery as noted above.
[2017-08-21] MEDS: ASPIRIN 81 MG PO SCH (17:46)
[2017-08-22 07:48] LABS: HCT 28.5 % (39.0-53.0); HGB 8.6 gm/dL (13.0-17.5); Hypochromasia Marked; MCH 26.7 pg (25.0-35.0); MCV 88.9 fL (80.0-100.0); Mean Platelet Volume 8.2; Platelet Count 225 k/uL (150-450); RBC 3.21 m/uL (4.30-5.90); RDW 15.8 % (11.5-15.5); WBC 15.7 k/uL (3.8-10.6)
[2017-08-22 07:53] LABS: Anion Gap 8 mmol/L; Blood Urea Nitrogen 27 mg/dL (9-20); Calcium 7.7 mg/dL (8.4-10.2); Carbon Dioxide 20 mmol/L (22-30); Chloride 100 mmol/L (98-107); Glucose 126 mg/dL (74-99); Potassium 4.2 mmol/L (3.5-5.1); Sodium 128 mmol/L (137-145)
--- NOTE | 2017-08-22 10:06 | P.PN ---
Subjective Progress Note Date: 08/22/17 Principal diagnosis: Altered mental status, nausea and vomiting thinks he is better today, still not completely normal, no nausea or vomiting Objective - Vital Signs Vital signs: Vital Signs Temp 97.9 F 08/22/17 07:00 Pulse 89 08/22/17 07:00 Resp 16 08/22/17 07:00 BP 127/72 08/22/17 07:00 Pulse Ox 96 08/22/17 07:00 Intake & Output 08/21/17 08/22/17 08/22/17 18:59 06:59 18:59 Intake Total 600 Balance 600 Weight 83.915 kg Intake: IV 600 Dextrose 5%-0.45% NaCl 1, 600 000 ml @ 75 mls/hr IV . [id number] [facility] Rx#:[id number] Other: Voiding Method Urinal Diaper Incontinent # Voids 3 1 - Exam gen:alert, nods head at times to show that he is understanding what I'm saying lungs:clear to auscultation heart:s1s2 abdomen:soft and depressible,non tender ext:no edema - Labs CBC & Chem 7: 08/22/17 07:29 08/22/17 07:29 Labs: Abnormal Lab Results - Last 24 Hours (Table) 08/21/17 08/21/17 08/22/17 Range/Units 10:52 15:48 07:29 WBC 15.8 H 15.7 H (3.8-10.6) k/uL RBC 3.70 L 3.21 L (4.30-5.90) m/uL Hgb 9.9 L 8.6 L (13.0-17.5) gm/dL Hct 33.5 L 28.5 L (39.0-53.0) % MCHC 29.6 L 30.0 L (31.0-37.0) g/dL RDW 15.8 H (11.5-15.5) % Neutrophils # 14.6 H (1.3-7.7) k/uL Lymphocytes # 0.4 L (1.0-4.8) k/uL Sodium (137-145) mmol/L Carbon Dioxide (22-30) mmol/L BUN (9-20) mg/dL Glucose (74-99) mg/dL POC Glucose (mg/dL) 178 H (75-99) mg/dL Calcium (8.4-10.2) mg/dL 08/22/17 Range/Units 07:29 WBC (3.8-10.6) k/uL RBC (4.30-5.90) m/uL Hgb (13.0-17.5) gm/dL Hct (39.0-53.0) % MCHC (31.0-37.0) g/dL RDW (11.5-15.5) % Neutrophils # (1.3-7.7) k/uL Lymphocytes # (1.0-4.8) k/uL Sodium 128 L (137-145) mmol/L Carbon Dioxide 20 L (22-30) mmol/L BUN 27 H (9-20) mg/dL Glucose 126 H (74-99) mg/dL POC Glucose (mg/dL) (75-99) mg/dL Calcium 7.7 L (8.4-10.2) mg/dL Microbiology - Last 24 Hours (Table) 08/19/17 10:35 Blood Culture - Preliminary Blood No Growth after 48 hours Assessment and Plan (1) Altered mental status Narrative/Plan: Unable to perform MRI secondary to pacer Mentation improving Await input from neurology Current Visit: Yes Status: Acute Code(s): R41.82 - ALTERED MENTAL STATUS, UNSPECIFIED SNOMED Code(s): 692860921 (2) Duodenal ulcer Narrative/Plan: Continue Protonix Current Visit: Yes Status: Acute Code(s): K26.9 - DUODENAL ULCER, UNSP ACUTE OR CHRONIC, W/O HEMOR OR PERF SNOMED Code(s): 36451729 (3) Chronic diastolic heart failure Narrative/Plan: Compensated Current Visit: Yes Status: Acute Code(s): I50.32 - CHRONIC DIASTOLIC ( CONGESTIVE) HEART FAILURE SNOMED Code(s): 489653798 (4) Seizure Narrative/Plan: Continue Keppra Current Visit: Yes Status: Acute Code(s): R56.9 - UNSPECIFIED CONVULSIONS SNOMED Code(s): 65926539 (5) Hypertension Narrative/Plan: controlled continue norvasc,imdur,and lisinopril Current Visit: Yes Status: Acute Code(s): I10 - ESSENTIAL (PRIMARY) HYPERTENSION SNOMED Code(s): 10619162 (6) CAD (coronary artery disease) Narrative/Plan: off aspirin for egd pantanoelicia calvin,nicoler, will resume aspirin once egd results available Current Visit: No Status: Acute Code(s): I25.10 - ATHSCL HEART DISEASE OF [place] CORONARY ARTERY W/O ANG PCTRS SNOMED Code(s): 85189333 (7) History of CVA (cerebrovascular accident) Narrative/Plan: with residual aphasia with weakness On aspirin Unclear whether episode yesterday is a new stroke? Current Visit: No Status: Acute Code(s): Z86.73 - PRSNL HX OF TIA (TIA), AND CEREB INFRC W/O RESID DEFICITS SNOMED Code(s): 564761896 (8) BPH (benign prostatic hyperplasia) Narrative/Plan: flomax Current Visit: Yes Status: Acute Code(s): N40.0 - BENIGN PROSTATIC HYPERPLASIA WITHOUT LOWER URINRY TRACT SYMP SNOMED Code(s): 424980840
[2017-08-22] MEDS: amLODIPine 10 MG TAB PO SCH (10:15)
[2017-08-22] MEDS: SUCRALFATE 1 GM TAB PO SCH ×4 (10:15→22:46)
[2017-08-22] MEDS: PANTOPRAZOLE 40 MG/10 ML VIAL IV SCH ×2 (10:15→22:14)
[2017-08-22] MEDS: ALLOPURINOL 300 MG TAB PO SCH (10:16)
[2017-08-22] MEDS: OXYBUTYNIN CHLORIDE 5 MG TAB PO SCH (10:16)
[2017-08-22] MEDS: SERTRALINE 100 MG TAB PO SCH (10:16)
[2017-08-22] MEDS: ATORVASTATIN 10 MG TAB PO SCH (10:16)
[2017-08-22] MEDS: levETIRAcetam 500 MG TAB PO SCH (10:16)
[2017-08-22] MEDS: ISOSORBIDE MONONITRATE ER 30 MG TAB.ER.24H PO SCH (10:16)
[2017-08-22] MEDS: ASPIRIN 81 MG PO SCH (10:16)
[2017-08-22] MEDS: TAMSULOSIN 0.4 MG CAP.ER.24H PO SCH (10:16)
[2017-08-22] MEDS: LISINOPRIL 20 MG TAB PO SCH (10:17)
--- NOTE | 2017-08-22 10:21 | P.PN ---
Subjective Progress Note Date: 08/22/17 82-year-old male seen and examined no new events dr moreno reviewed the plan of care with the and patient at bedside this morning questions were answered plan will be for a PICC line to be placed for TPN support no nausea no vomiting no stool. being seen by surgical service after an EGD was done as part of a workup for epigastric discomfort which showed a large duodenal ulcer with partial obstruction including some retained food debris. The plan is to continue to monitor for the next 48-72 hours with conservative management with further recommendations on Friday pending the clinical outcome Objective - Vital Signs Vital signs: Vital Signs Temp 97.9 F 08/22/17 07:00 Pulse 89 08/22/17 07:00 Resp 16 08/22/17 07:00 BP 127/72 08/22/17 07:00 Pulse Ox 96 08/22/17 07:00 Intake & Output 08/21/17 08/22/17 08/22/17 18:59 06:59 18:59 Intake Total 600 Balance 600 Weight 83.915 kg Intake: IV 600 Dextrose 5%-0.45% NaCl 1, 600 000 ml @ 75 mls/hr IV . [id number] [facility] Rx#:[id number] Other: Voiding Method Urinal Diaper Incontinent # Voids 3 1 - Exam Physical exam 82-year-old male awake does not consistently follow simple commands. Resting in bed Lungs adequate air movement bilaterally on room air no shortness of breath noted Heart S1-S2 audible regular Abdomen soft nondistended incontinent a urine no stool no nausea no vomiting few hypoactive bowel tones no facial grimacing with palpitation to the abdominal wall Extremities a right BKA right side weakness no edema - Labs CBC & Chem 7: 08/22/17 07:29 08/22/17 07:29 Labs: Abnormal Lab Results - Last 24 Hours (Table) 08/21/17 08/21/17 08/22/17 Range/Units 10:52 15:48 07:29 WBC 15.8 H 15.7 H (3.8-10.6) k/uL RBC 3.70 L 3.21 L (4.30-5.90) m/uL Hgb 9.9 L 8.6 L (13.0-17.5) gm/dL Hct 33.5 L 28.5 L (39.0-53.0) % MCHC 29.6 L 30.0 L (31.0-37.0) g/dL RDW 15.8 H (11.5-15.5) % Neutrophils # 14.6 H (1.3-7.7) k/uL Lymphocytes # 0.4 L (1.0-4.8) k/uL Sodium (137-145) mmol/L Carbon Dioxide (22-30) mmol/L BUN (9-20) mg/dL Glucose (74-99) mg/dL POC Glucose (mg/dL) 178 H (75-99) mg/dL Calcium (8.4-10.2) mg/dL 08/22/17 Range/Units 07:29 WBC (3.8-10.6) k/uL RBC (4.30-5.90) m/uL Hgb (13.0-17.5) gm/dL Hct (39.0-53.0) % MCHC (31.0-37.0) g/dL RDW (11.5-15.5) % Neutrophils # (1.3-7.7) k/uL Lymphocytes # (1.0-4.8) k/uL Sodium 128 L (137-145) mmol/L Carbon Dioxide 20 L (22-30) mmol/L BUN 27 H (9-20) mg/dL Glucose 126 H (74-99) mg/dL POC Glucose (mg/dL) (75-99) mg/dL Calcium 7.7 L (8.4-10.2) mg/dL Microbiology - Last 24 Hours (Table) 08/19/17 10:35 Blood Culture - Preliminary Blood No Growth after 48 hours Assessment and Plan Assessment: Impression History prostate cancer with radiation History of a CVA with right-sided weakness and dysphasia Status post EGD with biopsy done on August 20 showed large duodenal ulcer involving the post bulbar area and proximal descending duodenum with evidence of partial obstruction including retained food debris consistent with reflux Present on admission abdominal pain with nausea vomiting Acute blood loss anemia Partial gastric outlet obstruction per EGD Plan Will obtain a PICC line and start TPN for nutritional support today Possible repeating images CAT scan abdomen and pelvis on Friday PT OT eval Agree with protonix 40 IV twice a day Await EGD biopsies pending Liquid diet with protein supplements Aspiration precautions Further surgical recommendations after surgical eval by Dr. moreno DVT and GI prophylaxis note dictated for dr moreno The above impression and plan of care have been discussed and directed by signing physician. Saundra Kramer nurse practitioner acting as scribe for signing physician.
[2017-08-22] MEDS: DEXTROSE 5%-0.45% NACL 1,000 ML IV SCH (10:57)
[2017-08-22] MEDS ORDERED: LIDOCAINE 2% INJ 20 MG/ML SQ ONE (11:37)
--- NOTE | 2017-08-22 12:14 | P.PN ---
Progress Note - Text Progress Note Date: 08/22/17 Patient off floor for insertion of PICC line
[2017-08-22] MEDS ORDERED: MVI, ADULT NO.4 WITH VIT K 10 ML, TRACE (CONC-1ML/DOSE) 1 ML, SODIUM ACETATE 20 MEQ in ... IV ONE ×4 (15:00)
[2017-08-22 15:39] LABS: ALT 24 U/L (21-72); AST 23 U/L (17-59); Albumin 2.3 g/dL (3.5-5.0); Alkaline Phosphatase 273 U/L (38-126); Anion Gap 9 mmol/L; Blood Urea Nitrogen 30 mg/dL (9-20); Calcium 7.8 mg/dL (8.4-10.2); Carbon Dioxide 19 mmol/L (22-30); Chloride 98 mmol/L (98-107); Glucose 122 mg/dL (74-99); Magnesium 1.8 mg/dL (1.6-2.3); Phosphorus 2.9 mg/dL (2.5-4.5); Potassium 4.1 mmol/L (3.5-5.1); Sodium 126 mmol/L (137-145); Total Bilirubin 0.4 mg/dL (0.2-1.3); Total Protein 4.4 g/dL (6.3-8.2); Triglycerides 108 mg/dL (<150)
--- NOTE | 2017-08-22 16:06 | IR ---
EXAMINATION TYPE: IR cvc insert >=5 years DATE OF EXAM: 08/22/2017 COMPARISON: NONE CLINICAL HISTORY: Total parenteral nutrition therapy PROCEDURE: After informed consent, the skin overlying the right cephalic vein was localized with ultrasound and noted to be compressible and patent. An ultrasound image was obtained and submitted on the patient's chart. The overlying skin was prepped and draped and Lidocaine was used for local anesthesia. A sk in manolo was made with a scalpel. Access was gained to the vein under ultrasound guidance with a 21 g auge needle and a 0.018 inch wire was advanced. Access site was dilated with Peel-Away sheath and ca theter tailored to the appropriate length and advanced such that the distal tip is at the cavoatrial junction. Spot image was obtained verifying placement. Catheter was fixed to the skin with suture a nd a sterile dressing was placed following hemostasis. Catheter was aspirated and flushed with salin e. Patient was discharged in stable condition without complication.Maximal barrier technique is util ized. Ultrasound image is documented on the chart. Ultrasound used with sterile technique. Fluoro time and fluoroscopic images submitted to document procedure: 125 intraoperative images, 0.2 m inutes fluoroscopy time IMPRESSION: STATUS POST ULTRASOUND AND FLUOROSCOPIC GUIDED PICC LINE PLACEMENT, READY FOR USE. THIS PROCEDURE WAS PERFORMED BY THE UNDERSIGNED.
[2017-08-22 17:40] LABS: Glucose,Whole Blood 170 mg/dL (75-99)
[2017-08-22] MEDS ORDERED: FAT EMULSION 20% 250 ML in EMPTY BAG 1 BAG IV SCH (18:00)
[2017-08-22] MEDS: INSULIN ASPART 100 UNIT/ML 1 ML 10 ML VIAL SQ SCH (18:43)
[2017-08-22] MEDS ORDERED: SODIUM CHLORIDE 0.9% 1,000 ML IV ONE (21:29)
[2017-08-22 22:40] LABS: Creatinine,Urine Random 122.6 mg/dL
[2017-08-22 22:45] LABS: ABG Base Excess -6.1 mmol/L; ABG HCO3 18 mmol/L (21-25); ABG Oxygen Saturation 95.3 % (94-97); ABG PCO2 28 mmHg (35-45); ABG PH 7.42 (7.35-7.45); ABG PO2 68 mmHg (83-108); ABG TCO2 19 mmol/L (19-24)
--- NOTE | 2017-08-22 23:00 | P.CNNES ---
History of Present Illness Consult date: 08/22/17 Requesting physician: Yuri Slater Reason for Consult: Altered Mental Status Chief complaint: Confusion History of Present Illness: Neurology is consulting on a 82 year old male with a complex medical history. Patient is non verbal due to a previous CVA, with a chief complaint of abdominal pain. Patient had vomiting prior to presenting to the ED. CT Angiogram noted to have left internal carotid artery occlusion, palque in the right carotid bulb and proximal right ICA without hemodynamically significant stenosis. CT brain noted no acute process. Patient has right sided weakness and below the amputation. On contact the patient was supine in bed, responsive to painful stimuli. Patient was in no acute distress. Patient did not appear to be in acute distress. Patient was not alert or oriented. 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 "stroke during cagb sx, stated pt has lost vision in rt eye, some [facility] memory loss, does'nt write and does'nt recognize alphabet letters but able to read certain words on a menu or on tv. History of Any Multi-Drug Resistant Organisms: None Reported Past Surgical History: Coronary Bypass/CABG, Pacemaker Additional Past Surgical History / Comment(s): RIGHT LEG AMPUTATED 10/2013 pacemaker 2015, 2 top front teeth are dental implants, colonoscopy,rt hydrocele , cystoscopy/ureteroscopy/lithotripsy, triple vesel cabg, thoracentesis. Lithotripsy 2012, 2014 Past Anesthesia/Blood Transfusion Reactions: No Reported Reaction Additional Past Anesthesia/Blood Transfusion Reaction / Comment(s): STROKE DURING CABG SURGERY Type of Cardiac Device: Permanent Pacemaker Device Placement Date:: 2014 Smoking Status: Never smoker - Past Family History Father Family Medical History: Cancer, COPD Additional Family Medical History / Comment(s): prostate cancer Mother Additional Family Medical History / Comment(s): Heart valve replacement Medications and Allergies Home Medications Medication Instructions Recorded Confirmed Type Lisinopril [Prinivil] 40 mg PO DAILY 08/15/14 08/19/17 History Sertraline [Zoloft] 100 mg PO DAILY 08/15/14 08/19/17 History amLODIPine [Norvasc] 10 mg PO DAILY 08/15/14 08/19/17 History Simvastatin [Zocor] 40 mg PO HS 05/29/15 08/19/17 History Tamsulosin [Flomax] 0.4 mg PO DAILY #30 cap 08/12/15 08/19/17 Rx levETIRAcetam [Keppra] 1,000 mg PO BID 10/23/15 08/19/17 History Allopurinol [Zyloprim] 300 mg PO DAILY 12/15/15 08/19/17 History Oxybutynin Chloride [Ditropan] 10 mg PO DAILY 12/15/15 08/19/17 History Aspirin 325 mg PO DAILY 07/11/17 08/19/17 History Atorvastatin Calcium [Lipitor] 10 mg PO DAILY 07/11/17 08/19/17 History Dicyclomine [Bentyl] 10 mg PO DAILY 07/11/17 08/19/17 History Isosorbide Mononitrate ER [Imdur] 30 mg PO DAILY 07/11/17 08/19/17 History Allergies Allergy/AdvReac Type Severity Reaction Status Date / Time No Known Allergies Allergy Verified 08/19/17 10:23 Physical Examination - Vital Signs Vital Signs: Vital Signs Temp Pulse Resp BP BP Pulse Ox 08/22/17 22:15 98.1 F 107 H 18 138/73 92 L 08/22/17 21:06 97.5 F L 08/22/17 20:10 108 H 30 H 114/71 94 L 08/22/17 16:00 94 30 H 08/22/17 15:15 98.7 F 94 30 H 127/61 08/22/17 10:04 97.9 F 89 96 H 127/72 08/22/17 08:00 89 16 08/22/17 07:00 97.9 F 89 16 127/72 96 Intake and Output 08/22/17 08/22/17 08/22/17 06:59 14:59 22:59 Intake Total 600 2220 Output Total 1000 Balance 600 2220 -1000 Intake: IV 600 Dextrose 5%-0.45% NaCl 1, 600 000 ml @ 75 mls/hr IV . [id number] BASILIO Rx#:[id number] Intake, IV Titration 600 Amount Dextrose 5%-0.45% NaCl 1, 600 000 ml @ 75 mls/hr IV . [id number] BASILIO Rx#:[id number] Oral 1620 Output: Urine 1000 Straight 500 Other: Voiding Method Diaper Diaper Diaper Incontinent Incontinent # Voids 1 2 1 Weight 88.5 kg 88.5 kg Patient Weight 08/23/17 06:59 Weight 88.5 kg General appearance:no apparent distress. Head: Atraumatic, normocephalic, normal inspection Eyes: PERRLA, EOMI. Absent scleral icterus, conjunctival injection, nystagmus, periorbital swelling. Ear, nose and throat: Normal exam, mucous membranes moist Neck: Normal inspection, absent tenderness, lymphadenopathy. Respiratory: No increased work of breathing Cardiovascular: Regular rate, normal rhythm, normal heart sounds. Absent systolic murmur, diastolic murmur, rubs, gallops, clicks. GI/abdominal: Normal bowel sounds, nondistended, no tenderness, no guarding, no rebound, no rigidity. Extremities: right hemiparesis, right below the knee amputation, normal capillary refill, no tenderness, pedal edema joint swelling, calf tenderness. Neurological: cranial nerves II through XII intact, lateralizing weakness, no seizure activity noted on physical exam, no pronator drift and no nystagmus. Psychological: 2married Results - Laboratory Findings CBC and BMP: 08/22/17 07:29 08/22/17 15:10 Abnormal Lab Findings: Abnormal Labs 08/19/17 08/19/17 08/19/17 10:35 10:35 10:35 WBC 11.7 H RBC 4.25 L Hgb 11.6 L Hct 38.1 L MCHC 30.3 L RDW Neutrophils # 10.1 H Lymphocytes # 0.9 L Sodium Carbon Dioxide BUN Glucose 118 H POC Glucose (mg/dL) Calcium AST 16 L Alkaline Phosphatase Total Protein 5.9 L Albumin Urine Ketones Trace H 08/20/17 08/20/17 08/21/17 08:14 08:14 10:52 WBC 15.8 H RBC 3.20 L 3.70 L Hgb 8.8 L D 9.9 L Hct 29.7 L 33.5 L MCHC 29.6 L 29.6 L RDW Neutrophils # 14.6 H Lymphocytes # 0.4 L Sodium 135 L Carbon Dioxide BUN 24 H Glucose 103 H POC Glucose (mg/dL) Calcium AST Alkaline Phosphatase Total Protein Albumin Urine Ketones 08/21/17 08/22/17 08/22/17 15:48 07:29 07:29 WBC 15.7 H RBC 3.21 L Hgb 8.6 L Hct 28.5 L MCHC 30.0 L RDW 15.8 H Neutrophils # Lymphocytes # Sodium 128 L Carbon Dioxide 20 L BUN 27 H Glucose 126 H POC Glucose (mg/dL) 178 H Calcium 7.7 L AST Alkaline Phosphatase Total Protein Albumin Urine Ketones 08/22/17 08/22/17 15:10 17:39 WBC RBC Hgb Hct MCHC RDW Neutrophils # Lymphocytes # Sodium 126 L Carbon Dioxide 19 L BUN 30 H Glucose 122 H POC Glucose (mg/dL) 170 H Calcium 7.8 L AST Alkaline Phosphatase 273 H Total Protein 4.4 L Albumin 2.3 L Urine Ketones Assessment and Plan (1) Abdominal pain Current Visit: Yes Status: Acute Code(s): R10.9 - UNSPECIFIED ABDOMINAL PAIN SNOMED Code(s): 18013430 (2) Altered mental status Current Visit: Yes Status: Acute Code(s): R41.82 - ALTERED MENTAL STATUS, UNSPECIFIED SNOMED Code(s): 403201448 (3) Colitis Current Visit: Yes Status: Acute Code(s): K52.9 - NONINFECTIVE GASTROENTERITIS AND COLITIS, UNSPECIFIED SNOMED Code(s): 63647889 (4) Duodenal ulcer Current Visit: Yes Status: Acute Code(s): K26.9 - DUODENAL ULCER, UNSP ACUTE OR CHRONIC, W/O HEMOR OR PERF SNOMED Code(s): 01240131 (5) History of CVA (cerebrovascular accident) Current Visit: No Status: Acute Code(s): Z86.73 - PRSNL HX OF TIA (TIA), AND CEREB INFRC W/O RESID DEFICITS SNOMED Code(s): 010808454 (6) Hx of CABG Current Visit: No Status: Acute Code(s): Z95.1 - PRESENCE OF AORTOCORONARY BYPASS GRAFT SNOMED Code(s): 372072181 Plan: 1. Encephalopathy 2. Hyponatremia 3. Altered mental status 4. Anemia 5. ICA occlusion Patient is known to be encephalopathic based on elevated WBCs. However confusion could also be related to the patient's hyponatremic status. Continue to correct both underlying etiologies. EEG is ordered. Consider vascular consult related to ICA occlusion as noted on imaging if not already requested. Status: Neurology will continue to follow the patient at this time with states as needed or warranted. Contact our office with any questions or concerns. Ernie Escobedo, [employer]ATOR-C Neurology For DR Fabian Lujan MD I discussed the patients history, physical exam, diagnostic testing, lab work and imaging with Dr Lujan prior to implementing the plan above. He agrees with the plan as implemented prior to implementation.
[2017-08-22] MEDS: levETIRAcetam IV 1,000 MG in SALINE 1 100ML.BAG IVPB SCH (23:56)
[2017-08-23 00:01] LABS: Glucose,Whole Blood 188 mg/dL (75-99)
[2017-08-23] MEDS: levETIRAcetam 500 MG TAB PO SCH (00:41)
[2017-08-23] MEDS: INSULIN ASPART 100 UNIT/ML 1 ML 10 ML VIAL SQ SCH ×4 (00:49→17:48)
[2017-08-23] MEDS: SODIUM CHLORIDE 0.9% 1,000 ML IV SCH ×3 (00:51→11:12)
[2017-08-23 03:22] LABS: Hemoglobin A1C 5.2 % (4.0-6.0)
[2017-08-23 05:35] LABS: Glucose,Whole Blood 178 mg/dL (75-99)
[2017-08-23 07:14] LABS: Glucose,Whole Blood 192 mg/dL (75-99)
--- NOTE | 2017-08-23 07:18 | P.PN ---
Progress Note - Text Progress Note Date: 08/22/17 I was called to see the patient for AMS. Patient seems to have some confusion and altered mental status since presentation however to some degree was worsening, I discussed the case with the morning team over the phone to go over his baseline status and he seem to be close to his baseline mental status from this morning. on exam oxygen saturation is 95% on room air, vital signs stable Lungs clear to auscultation, Neurologically he opens eyes and makes good eye to verbal stimulation, has good gag reflex and protecting airways, patient does not follow commands otherwise and non verbal labs reviewed and seems to have hyponatremia. patient was not making urine output possible metabolic derangement with hyponatremia possibly dehydration with low urine output vs others will challenge with IV fluid overnight and reevaluate in the morning 1L NS bolus then 100 cc /hour check bladder scan and consider intermittent straight cath as needed, if continue to retain urine will consider saunders cath await neurolgy evaluation
[2017-08-23 07:32] LABS: HCT 28.2 % (39.0-53.0); HGB 8.5 gm/dL (13.0-17.5); Hypochromasia Marked; MCH 26.6 pg (25.0-35.0); MCHC 30.3 g/dL (31.0-37.0); MCV 87.8 fL (80.0-100.0); Mean Platelet Volume 7.5; Platelet Count 243 k/uL (150-450); Poikilocytosis Slight; RBC 3.21 m/uL (4.30-5.90); RDW 14.5 % (11.5-15.5); WBC 15.2 k/uL (3.8-10.6)
[2017-08-23] MEDS: ATORVASTATIN 10 MG TAB PO SCH (07:37)
[2017-08-23] MEDS: SUCRALFATE 1 GM TAB PO SCH ×4 (07:37→20:39)
[2017-08-23] MEDS: amLODIPine 10 MG TAB PO SCH (07:37)
[2017-08-23] MEDS: ASPIRIN 81 MG PO SCH (07:37)
[2017-08-23] MEDS: ALLOPURINOL 300 MG TAB PO SCH (07:37)
[2017-08-23] MEDS: LISINOPRIL 20 MG TAB PO SCH (07:40)
[2017-08-23] MEDS: OXYBUTYNIN CHLORIDE 5 MG TAB PO SCH (07:40)
[2017-08-23] MEDS: ISOSORBIDE MONONITRATE ER 30 MG TAB.ER.24H PO SCH (07:40)
[2017-08-23] MEDS: TAMSULOSIN 0.4 MG CAP.ER.24H PO SCH (07:41)
[2017-08-23] MEDS: SERTRALINE 100 MG TAB PO SCH (07:41)
[2017-08-23 07:43] LABS: Ionized Calcium 4.7 mg/dL (4.5-5.3)
[2017-08-23] MEDS ORDERED: RX INFO: IV CONTRAST WAS GIVEN 1 EACH MISC MISCELLANE PRN (07:54)
[2017-08-23 08:01] LABS: Albumin 2.1 g/dL (3.5-5.0); Anion Gap 9 mmol/L; Blood Urea Nitrogen 33 mg/dL (9-20); Calcium 7.7 mg/dL (8.4-10.2); Carbon Dioxide 19 mmol/L (22-30); Chloride 100 mmol/L (98-107); Glucose 146 mg/dL (74-99); Magnesium 1.9 mg/dL (1.6-2.3); Phosphorus 2.4 mg/dL (2.5-4.5); Potassium 3.8 mmol/L (3.5-5.1); Sodium 128 mmol/L (137-145)
[2017-08-23] MEDS: levETIRAcetam IV 1,000 MG in SALINE 1 100ML.BAG IVPB SCH ×2 (08:18→20:39)
[2017-08-23] MEDS: PANTOPRAZOLE 40 MG/10 ML VIAL IV SCH ×2 (08:19→20:39)
--- NOTE | 2017-08-23 08:29 | P.PN ---
Subjective Progress Note Date: 08/23/17 Principal diagnosis: respiratory distress called to evaluate patient today who has been found to be in respiratory distress.Patien tachypneic, lethargic Objective - Vital Signs Vital signs: Vital Signs Temp 98.2 F 08/23/17 07:00 Pulse 91 08/23/17 07:00 Resp 20 08/23/17 07:00 BP 138/67 08/23/17 07:00 Pulse Ox 94 L 08/23/17 07:00 Intake & Output 08/22/17 08/23/17 08/23/17 18:59 06:59 18:59 Intake Total 2220 Output Total 1000 Balance 2220 -1000 Weight 88.5 kg Intake: Intake, IV Titration 600 Amount Dextrose 5%-0.45% NaCl 1, 600 000 ml @ 75 mls/hr IV . [id number] BASILIO Rx#:[id number] Oral 1620 Output: Urine 1000 Straight 500 Other: Voiding Method Diaper Diaper Incontinent Incontinent # Voids 2 1 - Exam gen:lethargic, respiratory distress lungs:clear to auscultation,upper respiratory sounds heart:s1s2 abdomen:soft and depressible,non tender ext:no edema - Labs CBC & Chem 7: 08/23/17 06:46 08/23/17 06:46 Labs: Abnormal Lab Results - Last 24 Hours (Table) 08/22/17 08/22/17 08/22/17 Range/Units 15:10 17:39 21:55 WBC (3.8-10.6) k/uL RBC (4.30-5.90) m/uL Hgb (13.0-17.5) gm/dL Hct (39.0-53.0) % MCHC (31.0-37.0) g/dL D-Dimer (<0.60) mg/L FEU ABG pCO2 (35-45) mmHg ABG pO2 (83-108) mmHg ABG HCO3 (21-25) mmol/L Sodium 126 L (137-145) mmol/L Carbon Dioxide 19 L (22-30) mmol/L BUN 30 H (9-20) mg/dL Glucose 122 H (74-99) mg/dL POC Glucose (mg/dL) 170 H (75-99) mg/dL Calcium 7.8 L (8.4-10.2) mg/dL Phosphorus (2.5-4.5) mg/dL Alkaline Phosphatase 273 H (38-126) U/L Total Protein 4.4 L (6.3-8.2) g/dL Albumin 2.3 L (3.5-5.0) g/dL Ur Random Sodium 5 L (30-90) mmol/L 08/22/17 08/22/17 08/23/17 Range/Units 22:44 23:58 05:33 WBC (3.8-10.6) k/uL RBC (4.30-5.90) m/uL Hgb (13.0-17.5) gm/dL Hct (39.0-53.0) % MCHC (31.0-37.0) g/dL D-Dimer (<0.60) mg/L FEU ABG pCO2 28 L (35-45) mmHg ABG pO2 68 L (83-108) mmHg ABG HCO3 18 L (21-25) mmol/L Sodium (137-145) mmol/L Carbon Dioxide (22-30) mmol/L BUN (9-20) mg/dL Glucose (74-99) mg/dL POC Glucose (mg/dL) 188 H 178 H (75-99) mg/dL Calcium (8.4-10.2) mg/dL Phosphorus (2.5-4.5) mg/dL Alkaline Phosphatase (38-126) U/L Total Protein (6.3-8.2) g/dL Albumin (3.5-5.0) g/dL Ur Random Sodium (30-90) mmol/L 08/23/17 08/23/17 08/23/17 Range/Units 06:46 06:46 07:11 WBC 15.2 H (3.8-10.6) k/uL RBC 3.21 L (4.30-5.90) m/uL Hgb 8.5 L (13.0-17.5) gm/dL Hct 28.2 L (39.0-53.0) % MCHC 30.3 L (31.0-37.0) g/dL D-Dimer (<0.60) mg/L FEU ABG pCO2 (35-45) mmHg ABG pO2 (83-108) mmHg ABG HCO3 (21-25) mmol/L Sodium 128 L (137-145) mmol/L Carbon Dioxide 19 L (22-30) mmol/L BUN 33 H (9-20) mg/dL Glucose 146 H (74-99) mg/dL POC Glucose (mg/dL) 192 H (75-99) mg/dL Calcium 7.7 L (8.4-10.2) mg/dL Phosphorus 2.4 L (2.5-4.5) mg/dL Alkaline Phosphatase (38-126) U/L Total Protein (6.3-8.2) g/dL Albumin 2.1 L (3.5-5.0) g/dL Ur Random Sodium (30-90) mmol/L 08/23/17 Range/Units 07:13 WBC (3.8-10.6) k/uL RBC (4.30-5.90) m/uL Hgb (13.0-17.5) gm/dL Hct (39.0-53.0) % MCHC (31.0-37.0) g/dL D-Dimer 5.03 H (<0.60) mg/L FEU ABG pCO2 (35-45) mmHg ABG pO2 (83-108) mmHg ABG HCO3 (21-25) mmol/L Sodium (137-145) mmol/L Carbon Dioxide (22-30) mmol/L BUN (9-20) mg/dL Glucose (74-99) mg/dL POC Glucose (mg/dL) (75-99) mg/dL Calcium (8.4-10.2) mg/dL Phosphorus (2.5-4.5) mg/dL Alkaline Phosphatase (38-126) U/L Total Protein (6.3-8.2) g/dL Albumin (3.5-5.0) g/dL Ur Random Sodium (30-90) mmol/L Microbiology - Last 24 Hours (Table) 08/19/17 10:35 Blood Culture - Preliminary Blood No Growth after 72 hours Assessment and Plan (1) Respiratory distress Narrative/Plan: elevated ddimer suspect PE ABG will obtain CT angio rule out PE R/O aspiration transfer to [facility] Discussed with Dr Muñoz Current Visit: Yes Status: Acute Code(s): R06.03 - ACUTE RESPIRATORY DISTRESS SNOMED Code(s): 305281260 (2) Altered mental status Narrative/Plan: ?secondary to metabolic encephalopathy dehydration? ct of head negative Current Visit: Yes Status: Acute Code(s): R41.82 - ALTERED MENTAL STATUS, UNSPECIFIED SNOMED Code(s): 135576941 (3) Duodenal ulcer Narrative/Plan: on Protonix Current Visit: Yes Status: Acute Code(s): K26.9 - DUODENAL ULCER, UNSP ACUTE OR CHRONIC, W/O HEMOR OR PERF SNOMED Code(s): 79172327 (4) Hyponatremia Narrative/Plan: BMP pending this am secondary to dehydration Current Visit: Yes Status: Acute Code(s): E87.1 - HYPO-OSMOLALITY AND HYPONATREMIA SNOMED Code(s): 58497832 (5) Chronic diastolic heart failure Current Visit: Yes Status: Acute Code(s): I50.32 - CHRONIC DIASTOLIC ( CONGESTIVE) HEART FAILURE SNOMED Code(s): 367721263 (6) Seizure Current Visit: Yes Status: Acute Code(s): R56.9 - UNSPECIFIED CONVULSIONS SNOMED Code(s): 17691050 (7) Hypertension Current Visit: Yes Status: Acute Code(s): I10 - ESSENTIAL (PRIMARY) HYPERTENSION SNOMED Code(s): 31002682 (8) CAD (coronary artery disease) Current Visit: No Status: Acute Code(s): I25.10 - ATHSCL HEART DISEASE OF [place] CORONARY ARTERY W/O ANG PCTRS SNOMED Code(s): 01901456 (9) History of CVA (cerebrovascular accident) Current Visit: No Status: Acute Code(s): Z86.73 - PRSNL HX OF TIA (TIA), AND CEREB INFRC W/O RESID DEFICITS SNOMED Code(s): 531121334 (10) BPH (benign prostatic hyperplasia) Current Visit: Yes Status: Acute Code(s): N40.0 - BENIGN PROSTATIC HYPERPLASIA WITHOUT LOWER URINRY TRACT SYMP SNOMED Code(s): 640665188
--- NOTE | 2017-08-23 08:35 | CONS ---
ISAIAS Klein is an 82 -year-old gentleman who has been admitted with a history of chronic CVA affecting the right side of the fixed stroke involving the right upper and lower extremity. The patient has been admitted with history of nausea and vomiting under care of surgery. Patient has a history of a stroke in the past affecting right side. At the time of coronary artery bypass, had carotid endarterectomy done by Dr. Carl Alan and his group in the past. The patient has a history of hypertension, heart failure. The patient is seen in his room. The patient's neck is supple. No bruit appreciated. The patient has a right-sided fixed paresthesia involving the right upper lower extremity. Left carotid is totally occluded. Right carotid is normal. At this point, patient has left carotid bruit with affecting right side fixed stroke and right-sided carotid is normal. At this point, surgical intervention for left carotid occlusion. I have discussed in detail all the options with the family. MMODL / IJN: [id number] /
[2017-08-23 08:39] LABS: ABG Base Excess -6.9 mmol/L; ABG HCO3 17 mmol/L (21-25); ABG Oxygen Saturation 94.3 % (94-97); ABG PCO2 26 mmHg (35-45); ABG PH 7.44 (7.35-7.45); ABG PO2 67 mmHg (83-108); ABG TCO2 18 mmol/L (19-24)
[2017-08-23 09:20] LABS: Glucose,Whole Blood 176 mg/dL (75-99)
--- NOTE | 2017-08-23 09:26 | CT ---
EXAMINATION TYPE: CT angio chest DATE OF EXAM: 08/23/2017 9:16 AM COMPARISON: NONE HISTORY: SOB CT DLP: 433.1 mGycm Automated exposure control for dose reduction was used. CONTRAST: CTA scan of the thorax is performed with IV Contrast, patient injected with 100 mL of Omnipaque 350, pulmonary embolism protocol. . FINDINGS: There is atelectasis or consolidation at both lung bases, greater on the right than the lef t. There are small, bilateral pleural effusions. There is no significant axillary adenopathy. There i s some shotty mediastinal adenopathy. There is a 1.9 cm right hilar lymph node. There is no evidence of pulmonary embolus. Heart size is upper limits of normal. The aortic root is d ilated measuring 4.3 cm. The proximal arch is aneurysmal measuring 3.2 cm. The proximal descending th oracic aorta is aneurysmal measuring 3.5 cm. At the level of the aortic hiatus, the aorta is ectatic measuring 3.1 cm. There is no pericardial fluid. There is a small hiatal hernia. Limited views of the upper abdomen are unremarkable. There is hypertrophic spondylosis within the spine. IMPRESSION: 1. THIS EXAMINATION IS NEGATIVE FOR PULMONARY EMBOLUS. 2. THORACIC AORTIC ANEURYSM. 3. BIBASILAR AIRSPACE DISEASE, WORSE ON THE RIGHT THAN THE LEFT. 4. SMALL, BILATERAL EFFUSIONS. 5. MILD DEGENERATIVE CHANGE WITHIN THE SPINE.
[2017-08-23 09:47] LABS: Appearance,Urine Clear (Clear); Bilirubin,Urine Negative (Negative); Blood,Urine Negative (Negative); Color,Urine Yellow; Glucose,Urine (UA) Negative (Negative); Ketones,Urine Negative (Negative); Leukocyte Esterase,Urine Negative (Negative); Mucus,Urine Rare /hpf; Nitrite,Urine Negative (Negative); PH, Urine 5.5 (5.0-8.0); Protein,Urine 1+ (Negative); RBC,Urine 2 /hpf (0-5); Specific Gravity,Urine 1.017 (1.001-1.035); Sperm,Urine Rare /hpf; Squamous Epithelial Cell,Urine <1 /hpf (0-4); WBC,Urine 3 /hpf (0-5)
[2017-08-23] MEDS ORDERED: ALBUTEROL NEBULIZED 2.5 MG/3 ML INHALATION STA (10:13)
[2017-08-23] MEDS ORDERED: Potassium Replacement Protocol 1 EACH MISC MISCELLANE PRN (10:13)
[2017-08-23] MEDS ORDERED: methylPREDNISolone SOD SUCCI 125 MG/2 ML VIAL IV STA (10:14)
--- NOTE | 2017-08-23 11:04 | P.NPCON ---
History of Present Illness - Reason for Consult hyponatremia - History of Present Illness Reason for consultation: Hyponatremia History of present illness: Patient is a 82-year-old male seen in renal consultation for hyponatremia. She presented to the hospital on August 19 with abdominal pain. According to the he's been having that abdominal pain for quite some time and is worsened after he eats. Few days prior to admission his appetite was low. No vomiting or diarrhea. Patient has history of CVA with right-sided paralysis however he does eat and drink at home according to the family. He underwent EGD which revealed a large duodenal ulcer with partial obstruction. No surgical interventions are planned at this time. His GFR is at baseline with creatinine of 0.96. His sodium level was 137 on admission and gradually dropped down to 126 as of yesterday. It is up to 128 this morning. He is currently maintained on TPN which was started yesterday as well as normal saline which is running at 100 mL an hour. He is nothing by mouth. He is at high risk for aspiration. He is currently requiring a BiPAP. No evidence of hypotension. Vital signs are stable. General: The patient appeared well nourished and normally developed. HEENT: Head exam is unremarkable. Neck is without jugular venous distension. LUNGS: Lungs are clear to auscultation and percussion. Breath sounds decreased. HEART: Rate and Rhythm are regular. First and second heart sounds normal. No murmurs, rubs or gallops. ABDOMEN: Abdominal exam reveals normal bowel sounds. Non-tender and non- distended. No evidence of peritonitis. EXTREMITITES: No clubbing, cyanosis, or edema. 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 "stroke during cagb sx, stated pt has lost vision in rt eye, some prison memory loss, does'nt write and does'nt recognize alphabet letters but able to read certain words on a menu or on tv. History of Any Multi-Drug Resistant Organisms: None Reported Past Surgical History: Coronary Bypass/CABG, Pacemaker Additional Past Surgical History / Comment(s): RIGHT LEG AMPUTATED 10/2013 pacemaker 2015, 2 top front teeth are dental implants, colonoscopy,rt hydrocele , cystoscopy/ureteroscopy/lithotripsy, triple vesel cabg, thoracentesis. Lithotripsy 2012, 2013 Past Anesthesia/Blood Transfusion Reactions: No Reported Reaction Additional Past Anesthesia/Blood Transfusion Reaction / Comment(s): STROKE DURING CABG SURGERY Type of Cardiac Device: Permanent Pacemaker Device Placement Date:: 2014 Smoking Status: Never smoker - Past Family History Father Family Medical History: Cancer, COPD Additional Family Medical History / Comment(s): prostate cancer Mother Additional Family Medical History / Comment(s): Heart valve replacement Medications and Allergies Home Medications Medication Instructions Recorded Confirmed Type Lisinopril [Prinivil] 40 mg PO DAILY 08/15/14 08/19/17 History Sertraline [Zoloft] 100 mg PO DAILY 08/15/14 08/19/17 History amLODIPine [Norvasc] 10 mg PO DAILY 08/15/14 08/19/17 History Simvastatin [Zocor] 40 mg PO HS 05/29/15 08/19/17 History Tamsulosin [Flomax] 0.4 mg PO DAILY #30 cap 08/12/15 08/19/17 Rx levETIRAcetam [Keppra] 1,000 mg PO BID 10/23/15 08/19/17 History Allopurinol [Zyloprim] 300 mg PO DAILY 12/15/15 08/19/17 History Oxybutynin Chloride [Ditropan] 10 mg PO DAILY 12/15/15 08/19/17 History Aspirin 325 mg PO DAILY 07/11/17 08/19/17 History Atorvastatin Calcium [Lipitor] 10 mg PO DAILY 07/11/17 08/19/17 History Dicyclomine [Bentyl] 10 mg PO DAILY 07/11/17 08/19/17 History Isosorbide Mononitrate ER [Imdur] 30 mg PO DAILY 07/11/17 08/19/17 History Allergies Allergy/AdvReac Type Severity Reaction Status Date / Time No Known Allergies Allergy Verified 08/19/17 10:23 Physical Exam Vitals: Vital Signs Temp Pulse Pulse Resp BP BP Pulse Ox 08/23/17 10:27 90 08/23/17 10:18 93 08/23/17 08:00 40 H 01/27/18 07:00 98.2 F 91 20 138/67 94 L 08/22/17 22:15 98.1 F 107 H 18 138/73 92 L 08/22/17 21:06 97.5 F L 08/22/17 20:10 108 H 30 H 114/71 94 L 08/22/17 16:00 94 30 H 08/22/17 15:15 98.7 F 94 30 H 127/61 Intake and Output 08/22/17 08/23/17 08/23/17 22:59 06:59 14:59 Output Total 1000 Balance -1000 Output: Urine 1000 Straight 500 Other: Voiding Method Diaper Diaper Diaper Incontinent Incontinent # Voids 1 1 Weight 88.5 kg Results - Lab Results Most recent lab results ABG pH 7.44 (7.35-7.45) 08/23/17 08:35 ABG pCO2 26 mmHg (35-45) L 08/23/17 08:35 ABG pO2 67 mmHg (83-108) L 08/23/17 08:35 ABG HCO3 17 mmol/L (21-25) L 08/23/17 08:35 ABG O2 Saturation 94.3 % (94-97) 08/23/17 08:35 Calcium 7.7 mg/dL (8.4-10.2) L 08/23/17 06:46 Phosphorus 2.4 mg/dL (2.5-4.5) L 08/23/17 06:46 Magnesium 1.9 mg/dL (1.6-2.3) 08/23/17 06:46 08/23/17 06:46 08/23/17 06:46 Assessment and Plan Plan: Assessment: #1. Hypovolemic hyponatremia improving with IV hydration. Sodium level up to 128 today. Urine sodium was noted to be less than 5. #2. Metabolic acidosis which is compensatory for respiratory alkalosis. #3. History of CVA with right-sided weakness. #4. Duodenal ulcer with partial obstruction being followed by surgery and GI. #5. Anemia. Rule out iron deficiency. Plan: Continue normal saline to be run at 100 mL an hour. Continue with TPN. Repeat sodium level at 5 PM today. Check iron studies. Thank you for the consultation. I will continue to follow the patient with you during his hospital stay.
[2017-08-23] MEDS: MAGNESIUM SULFATE-D5W PMX 1 GM in DEXTROSE/WATER 1 100ML.BAG IVPB SCH ×2 (11:12→12:27)
[2017-08-23] MEDS: POTASSIUM CHLORIDE 10 MEQ in WATER FOR INJECTION 1 100ML.BAG IVPB SCH ×2 (11:12→12:28)
[2017-08-23] MEDS ORDERED: CISATRACURIUM 2 MG/ML 5 ML VIAL IV ONE ×2 (11:33→11:43)
[2017-08-23] MEDS ORDERED: PROPOFOL 100 ML IV ONE (11:33)
[2017-08-23] MEDS ORDERED: SUCCINYLCHOLINE CHLORIDE 100 MG/5 ML SYR IV ONE (11:41)
[2017-08-23] MEDS: PIPERACILLIN-TAZOBACTAM 3.375 GM in DEXTROSE/WATER 1 50ML.BAG IVPB SCH ×2 (12:27→20:39)
[2017-08-23 12:37] LABS: ABG HCO3 18 mmol/L (21-25); ABG PCO2 32 mmHg (35-45); ABG PH 7.35 (7.35-7.45); ABG PO2 >400 mmHg (83-108); ABG TCO2 19 mmol/L (19-24)
[2017-08-23] MEDS ORDERED: POTASSIUM PHOSPHATE 10 MMOL in SODIUM CHLORIDE 0.9% 100 ML IV ONE (13:00)
--- NOTE | 2017-08-23 13:08 | P.CNPUL ---
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 The patient was subsequently diagnosed having prostate cancer for which she was treated with radiation therapy. 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 The patient has also hypertension and seizure disorder in addition to multiple kidney stones. The patient came into the hospital because of nausea and vomiting and abdominal pain. Apparently was not responding to antibiotic medication. 24 hours prior to him coming to hospital the patient was unable to eat or drink. At that point, the patient came into the hospital on the CAT scan of the abdomen was done that showed cholelithiasis, 5 mm hepatic lesion near the dome within the left lobe of the liver and there was no other hepatic lesions seen and there was no evidence of any intrahepatic biliary dilatation. There was a chronic right UPJ junction obstruction with mild right-sided hydronephrosis and renal cysts. There was also gastric dilation with air-fluid and fat fluid level. Thickening of the descending duodenum measuring up to 9 mm in thickness and perienteric inflammatory changes were also seen as there was also a fasciculation of the fat plane between the pancreatic head and the duodenum. There was a mild pancreatic parenchymal atrophy. No ductal dilatation. No pancreatic masses seen. There was consideration of luminal narrowing within the descending duodenum approximately 3 cm of stricture/ narrowing was suspected. At that point, GI was consulted and the patient underwent an EGD and the patient was found to have a large duodenal ulcer involving the posterior bald area and proximal descending duodenum with evidence of partial obstruction including some retained food debris is an secretion in the duodenal bulb and in the stomach and there was also some changes in the esophagus consistent with some stomach content regurgitation. The patient also had a general surgery evaluation. This morning, the patient was having increased shortness of breath. The patient was found to be tachypneic and he had a lot of gurgling noises it's coming from his chest. Note that the patient is unable to speak or express his concerns. Blood gases was done that showed no significant hypoxemia or hypercapnia. Nevertheless the patient continued to be why dyspneic and short of breath and tachypneic. A CAT scan of the chest was done that showed no the 70 pulmonary embolism. There is thoracic aortic aneurysm measuring 4.3 cm in size at the level of the Route. There is a small hiatal hernia. Limited atelectatic changes in lung bases versus consolidation greater on the right compared to left and there was evidence of small pleural effusions. The patient got moved to the intensive care unit. The patient was initially filed on a BiPAP which she failed. He was found to be actively bronchus spastic and wheezy. At that point I intubated this patient and put him on a mechanical ventilator. Post intubation there was foul-smelling purulent material aspirated from his trachea through the orotracheal tube and sent for cultures. The patient was also covered with antibiotics and the patient was started on a combination of Zosyn and vancomycin. Family is at the bedside. I updated the and the daughter regarding these changes. They agreed on a short-term mechanical ventilation due to the above-mentioned events. Note that the patient also has a PICC line in his left upper extremity and he was started on TPN for nutritional support. He has developed some hyponatremia over the past few days and the sodium level is down to 128. Post intubation blood gas showed a pH of 7.35 with a pCO2 32 and pO2 of more than 400. This was on the FiO2 100% with a PEEP of 5 and tidal volume of 500 with a rate of 22. Post intubation chest x-ray showed adequate positioning of the V2. The patient has a pacemaker in place. Sternal wires are all in place. Is in place in the right upper extremity. The patient is developing a new infiltration of the right lung. NG tube is also in place. Review of Systems ROS unobtainable: due to endotracheal tube Past Medical History Past Medical History: Cancer, Heart Failure, CVA/TIA, GERD/Reflux, Hyperlipidemia, Hypertension, Memory Impairment, Seizure Disorder, Vascular Disorder Additional Past Medical History / Comment(s): Coronary artery disease, carotid bypass surgery, CVA with right-sided weakness and expressive aphasia and the patient has severe peripheral vascular disease and below-knee amputation on the right and at home he was able to use a slide board and transfer himself from bed to chair, prostate gastroparesis radiation therapy, multiple kidney stones, chronic hydronephrosis of the right kidney with obstruction of the UPJ junction , acid reflux, hypertension, hyperlipidemia, seizure disorder, expressive aphasia, congestion heart failure, large duodenal bulb ulcer causing obstruction of the small bowel at the level of the duodenum as mentioned and the endoscopy that was done a few days ago. Patient has also lost some vision in the right eye along some memory loss following the CVA. He doesn't recognize alphabet lateral but he is able to read through words on a menu or TV. History of Any Multi-Drug Resistant Organisms: None Reported Past Surgical History: Coronary Bypass/CABG, Pacemaker Additional Past Surgical History / Comment(s): Right-sided below knee amputation in 10/2013, pacemaker 2014, top front teeth are dental implants, colonoscopy,rt hydrocele, cystoscopy/ureteroscopy/lithotripsy, triple vessel cabg, thoracentesis, Lithotripsy 2012, 2013 Past Anesthesia/Blood Transfusion Reactions: No Reported Reaction Additional Past Anesthesia/Blood Transfusion Reaction / Comment(s): STROKE DURING CABG SURGERY Type of Cardiac Device: Permanent Pacemaker Device Placement Date:: 2014 Smoking Status: Never smoker - Past Family History Father Family Medical History: Cancer, COPD Additional Family Medical History / Comment(s): prostate cancer Mother Additional Family Medical History / Comment(s): Heart valve replacement Medications and Allergies Home Medications Medication Instructions Recorded Confirmed Type Lisinopril [Prinivil] 40 mg PO DAILY 08/15/14 08/19/17 History Sertraline [Zoloft] 100 mg PO DAILY 08/15/14 08/19/17 History amLODIPine [Norvasc] 10 mg PO DAILY 08/15/14 08/19/17 History Simvastatin [Zocor] 40 mg PO HS 05/29/15 08/19/17 History Tamsulosin [Flomax] 0.4 mg PO DAILY #30 cap 08/12/15 08/19/17 Rx levETIRAcetam [Keppra] 1,000 mg PO BID 10/23/15 08/19/17 History Allopurinol [Zyloprim] 300 mg PO DAILY 12/15/15 08/19/17 History Oxybutynin Chloride [Ditropan] 10 mg PO DAILY 12/15/15 08/19/17 History Aspirin 325 mg PO DAILY 07/11/17 08/19/17 History Atorvastatin Calcium [Lipitor] 10 mg PO DAILY 07/11/17 08/19/17 History Dicyclomine [Bentyl] 10 mg PO DAILY 07/11/17 08/19/17 History Isosorbide Mononitrate ER [Imdur] 30 mg PO DAILY 07/11/17 08/19/17 History Allergies Allergy/AdvReac Type Severity Reaction Status Date / Time No Known Allergies Allergy Verified 08/19/17 10:23 Physical Exam Vitals: Vital Signs Temp Pulse Pulse Resp BP BP Pulse Ox 08/23/17 10:27 90 08/23/17 10:18 93 08/23/17 08:00 40 H 08/23/17 07:00 98.2 F 91 20 138/67 94 L 08/22/17 22:15 98.1 F 107 H 18 138/73 92 L 08/22/17 21:06 97.5 F L 08/22/17 20:10 108 H 30 H 114/71 94 L 08/22/17 16:00 94 30 H 08/22/17 15:15 98.7 F 94 30 H 127/61 Intake and Output 08/22/17 08/23/17 08/23/17 22:59 06:59 14:59 Output Total 1000 Balance -1000 Output: Urine 1000 Straight 500 Other: Voiding Method Diaper Diaper Diaper Incontinent Incontinent # Voids 1 1 Weight 88.5 kg Elderly male patient currently is intubated on a mechanical ventilator and the patient is sedated with Diprivan and, comfortable. My normal had my normal had there isn'tHead exam was generally normal. There was no scleral icterus or corneal arcus. Mucous membranes were moist. The patient has facial asymmetry with right-sided weakness. Orogastric and orotracheal tube are both in place.Neck was supple and without jugular venous distension, thyromegaly, or carotid bruits. Carotids were easily palpable bilaterally. There was no adenopathy. Lung sounds are diminished and there is diffuse expiratory wheezes throughout the lung chen bilaterally. There is also prolongation of the expiratory phase of breathing.Cardiac exam revealed the PMI to be normally situated and sized. The rhythm was regular and no extrasystoles were noted during several minutes of auscultation. The first and second heart sounds were normal and physiologic splitting of the second heart sound was noted. There were no murmurs, rubs, clicks, or gallops. Pacemaker pocket can be felt and palpated over the left anterior chest area. Abdomen is soft nontender there is no direct tenderness rebound tensile guarding.Abdominal exam revealed normal bowel sounds. The abdomen was soft, non-tender, and without masses, organomegaly , or appreciable enlargement of the abdominal aorta.Examination of the extremities revealed easily palpable radial, femoral and pedal pulses. Noted the patient has a below-knee amputation on the right lower extremity. There was no cyanosis, clubbing or edema. Neurologically the patient is sedated. The patient has evidence of CVA with right-sided hemiplegia and the right upper extremity is obviously weak secondary to the CVA. Results - Laboratory Findings CBC and BMP: 08/23/17 06:46 08/23/17 06:46 ABG ABG pH 7.35 (7.35-7.45) 08/23/17 12:34 ABG pCO2 32 mmHg (35-45) L 08/23/17 12:34 ABG pO2 >400 mmHg (83-108) H 08/23/17 12:34 ABG O2 Saturation 100.0 % (94-97) H 08/23/17 12:34 PT/INR, D-dimer PT 9.6 sec (9.0-12.0) 08/19/17 10:35 INR 1.0 (<1.2) 08/19/17 10:35 D-Dimer 5.03 mg/L FEU (<0.60) H 08/23/17 07:13 Abnormal lab findings: Abnormal Labs 08/19/17 08/19/17 08/19/17 10:35 10:35 10:35 WBC 11.7 H RBC 4.25 L Hgb 11.6 L Hct 38.1 L MCHC 30.3 L RDW Neutrophils # 10.1 H Lymphocytes # 0.9 L D-Dimer ABG pCO2 ABG pO2 ABG HCO3 ABG Total CO2 ABG O2 Saturation Sodium Carbon Dioxide BUN Glucose 118 H POC Glucose (mg/dL) Calcium Phosphorus AST 16 L Alkaline Phosphatase Total Protein 5.9 L Albumin Urine Protein Urine Ketones Trace H Urine Mucus Ur Random Sodium 08/20/17 08/20/17 08/21/17 08:14 08:14 10:52 WBC 15.8 H RBC 3.20 L 3.70 L Hgb 8.8 L D 9.9 L Hct 29.7 L 33.5 L MCHC 29.6 L 29.6 L RDW Neutrophils # 14.6 H Lymphocytes # 0.4 L D-Dimer ABG pCO2 ABG pO2 ABG HCO3 ABG Total CO2 ABG O2 Saturation Sodium 135 L Carbon Dioxide BUN 24 H Glucose 103 H POC Glucose (mg/dL) Calcium Phosphorus AST Alkaline Phosphatase Total Protein Albumin Urine Protein Urine Ketones Urine Mucus Ur Random Sodium 08/21/17 08/22/17 08/22/17 15:48 07:29 07:29 WBC 15.7 H RBC 3.21 L Hgb 8.6 L Hct 28.5 L MCHC 30.0 L RDW 15.8 H Neutrophils # Lymphocytes # D-Dimer ABG pCO2 ABG pO2 ABG HCO3 ABG Total CO2 ABG O2 Saturation Sodium 128 L Carbon Dioxide 20 L BUN 27 H Glucose 126 H POC Glucose (mg/dL) 178 H Calcium 7.7 L Phosphorus AST Alkaline Phosphatase Total Protein Albumin Urine Protein Urine Ketones Urine Mucus Ur Random Sodium 08/22/17 08/22/17 08/22/17 15:10 17:39 21:55 WBC RBC Hgb Hct MCHC RDW Neutrophils # Lymphocytes # D-Dimer ABG pCO2 ABG pO2 ABG HCO3 ABG Total CO2 ABG O2 Saturation Sodium 126 L Carbon Dioxide 19 L BUN 30 H Glucose 122 H POC Glucose (mg/dL) 170 H Calcium 7.8 L Phosphorus AST Alkaline Phosphatase 273 H Total Protein 4.4 L Albumin 2.3 L Urine Protein Urine Ketones Urine Mucus Ur Random Sodium 5 L 08/22/17 08/22/17 08/23/17 22:44 23:58 05:33 WBC RBC Hgb Hct MCHC RDW Neutrophils # Lymphocytes # D-Dimer ABG pCO2 28 L ABG pO2 68 L ABG HCO3 18 L ABG Total CO2 ABG O2 Saturation Sodium Carbon Dioxide BUN Glucose POC Glucose (mg/dL) 188 H 178 H Calcium Phosphorus AST Alkaline Phosphatase Total Protein Albumin Urine Protein Urine Ketones Urine Mucus Ur Random Sodium 08/23/17 08/23/17 08/23/17 06:46 06:46 07:11 WBC 15.2 H RBC 3.21 L Hgb 8.5 L Hct 28.2 L MCHC 30.3 L RDW Neutrophils # Lymphocytes # D-Dimer ABG pCO2 ABG pO2 ABG HCO3 ABG Total CO2 ABG O2 Saturation Sodium 128 L Carbon Dioxide 19 L BUN 33 H Glucose 146 H POC Glucose (mg/dL) 192 H Calcium 7.7 L Phosphorus 2.4 L AST Alkaline Phosphatase Total Protein Albumin 2.1 L Urine Protein Urine Ketones Urine Mucus Ur Random Sodium 08/23/17 08/23/17 08/23/17 07:13 08:35 09:17 WBC RBC Hgb Hct MCHC RDW Neutrophils # Lymphocytes # D-Dimer 5.03 H ABG pCO2 26 L ABG pO2 67 L ABG HCO3 17 L ABG Total CO2 18 L ABG O2 Saturation Sodium Carbon Dioxide BUN Glucose POC Glucose (mg/dL) 176 H Calcium Phosphorus AST Alkaline Phosphatase Total Protein Albumin Urine Protein Urine Ketones Urine Mucus Ur Random Sodium 08/23/17 08/23/17 09:29 12:34 WBC RBC Hgb Hct MCHC RDW Neutrophils # Lymphocytes # D-Dimer ABG pCO2 32 L ABG pO2 >400 H ABG HCO3 18 L ABG Total CO2 ABG O2 Saturation 100.0 H Sodium Carbon Dioxide BUN Glucose POC Glucose (mg/dL) Calcium Phosphorus AST Alkaline Phosphatase Total Protein Albumin Urine Protein 1+ H Urine Ketones Urine Mucus Rare H Ur Random Sodium - Diagnostic Findings Chest x-ray: image reviewed Assessment and Plan Plan: Assessment 1 acute aspiration with secondary respiratory failure 2 acute respiratory failure secondary to aspiration and the patient was unable to protect his airway and he became acutely spastic and wheezy. The patient has a weak cough. He was very tachypneic in respiratory distress and based on that I intubated this patient and placed on a mechanical ventilator. Post intubation there was purulent material being suctioned from his orotracheal tube 3 history of CVA with right-sided hemiplegia, expressive aphasia, visual impairment of memory loss 4 severe peripheral vascular disease with below-knee amputation on the right 5 coronary artery disease with previous bypass surgery back in 1999 6 seizure disorder 7 gastric outlet obstruction as the patient is found to have a large duodenal ulcer involving the posterior bubbled area and proximal descending duodenum with evidence of partial obstruction 8 prostate cancer. 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 Patient accordingly got intubated and placed on a mechanical ventilator. Will obtain sputum Gram stain and culture. We'll cover this patient with accommodation of Zosyn and vancomycin. We'll put him on bronchodilators around- the-clock. We'll put him on a IV Solu-Medrol. Will continued IV Protonix. We will insert NG tube in place. No feeding will be offered for now. The patient is a PICC line in the right upper extremities and the patient was started on TPN for nutritional support. Monitor the sodium level. Provide this patient normal saline at the rate of 50 mL an hour. The rest of the outpatient medication we will resume. Follow blood gases. Keep the patient sedated with Diprivan. Vent bundle was activated. We'll continue to follow. Prognosis long -term is poor due to above-mentioned comorbidities.
--- NOTE | 2017-08-23 13:11 | P.PCN ---
Date of Procedure: 08/23/17 Preoperative Diagnosis: Acute respiratory failure Postoperative Diagnosis: Acute respiratory failure Procedure(s) Performed: Intubation Anesthesia: MAC Surgeon: Ibis Muñoz Condition: critical Disposition: ICU Operative Findings: Intubation was done in the intensive care unit. The patient was in acute respiratory failure. The patient was bagged using a number back. The patient was given a total of 150 milligrams of Diprivan. The patient was not paralyzed during the procedure. Using a number 4 Mac laryngoscope, direct visualization of the epiglottis and vocal cords was done. I successfully inserted a #8 orotracheal tube past the vocal cords and the balloon was inflated and the position of the tube was confirmed by a gas monitor. Addendum of the procedure the patient was bagged and the breath sounds are equal and bilateral and symmetrical. The tube was secured at 24 cm lip line. Chest x-ray post intubation showed no complication and the tube was in a good location. Tube was secured in place and the patient was tested a mechanical ventilator. No complications.
--- NOTE | 2017-08-23 14:44 | XR ---
EXAMINATION TYPE: XR chest 1V portable DATE OF EXAM: 08/23/2017 HISTORY: Tube placement. REFERENCE: Previous study dated 08/10/2015. FINDINGS: The patient has been intubated. ET tube is in satisfactory position approximately 7.5 cm fr om the ion. An NG tube is been passed. Its tip is in the stomach. There is been a midline sternotomy. There is unipolar pacemaker place on the left. There is some scarring in the right midlung. The heart is mildly enlarged. The lungs are clear. There is a chronic right-sided pleural reaction. IMPRESSION: 1. SATISFACTORY ET TUBE PLACEMENT. 2. CARDIOMEGALY. 3. CHRONIC PLEURAL PARENCHYMAL CHANGES ON THE RIGHT.
[2017-08-23] MEDS: PROPOFOL 1,000 MG in EMPTY BAG 1 BAG IV SCH (16:00)
[2017-08-23] MEDS ORDERED: IPRATROPIUM-ALBUTEROL 3 ML NEB INHALATION PRN (16:44)
[2017-08-23 17:40] LABS: Glucose,Whole Blood 193 mg/dL (75-99)
[2017-08-23] MEDS: CHLORHEXIDINE GLUCONATE 15 ML CUP MUCOUS MEM SCH ×2 (17:47→20:39)
[2017-08-23] MEDS: methylPREDNISolone SOD SUCCI 125 MG/2 ML VIAL IV SCH (17:48)
[2017-08-23 18:01] LABS: Iron Saturation 1.81 (15.00-50.00)
[2017-08-23] MEDS: 1: MVI, ADULT NO.4 WITH VIT K 10 ML, TRACE (CONC-1ML/DOSE) 1 ML, SODIUM ACETATE 20 MEQ i IV SCH ×4 (18:59)
[2017-08-23] MEDS: IPRATROPIUM-ALBUTEROL 3 ML NEB INHALATION SCH ×2 (19:59→23:46)
--- NOTE | 2017-08-23 20:20 | P.PN ---
Subjective Progress Note Date: 08/23/17 Principal diagnosis: Duodenal ulcer History prostate cancer with radiation History of a CVA with right-sided weakness and dysphasia Status post EGD with biopsy done on August 20 showed large duodenal ulcer involving the post bulbar area and proximal descending duodenum with evidence of partial obstruction including retained food debris consistent with reflux Present on admission abdominal pain with nausea vomiting Acute blood loss anemia Partial gastric outlet obstruction per EGD Patient intubated, sedated. Objective - Vital Signs Vital signs: Vital Signs Temp 99.0 F 08/23/17 16:00 Pulse 77 08/23/17 20:07 Resp 24 08/23/17 19:00 BP 90/51 08/23/17 19:00 Pulse Ox 96 08/23/17 19:00 Intake & Output 08/23/17 08/23/17 08/24/17 06:59 18:59 06:59 Intake Total 1230 75 Output Total 1000 1190 30 Balance -1000 40 45 Weight 88.5 kg Intake: Intake, IV Titration 1230 75 Amount Magnesium Sulfate-D5w Pmx 200 1 gm In Dextrose/Water 1 100ml.bag @ 100 mls/hr IVPB Q1H [facility] Rx#: [id number] Mvi, Adult No.4 with Vit 30 K 10 ml Trace (Conc-1Ml/ Dose) 1 ml Sodium Acetate 20 meq In Amino Acid 5%- D25w+Lytes*E* 1,000 ml @ 30 mls/hr IV .Q24H [facility] Rx #:[id number] Piperacillin-Tazobactam 3 50 .375 gm In Dextrose/Water 1 50ml.bag @ 12.5 mls/hr IVPB Q8H [facility] Rx#: [id number] Potassium Chloride 10 meq 200 In Water For Injection 1 100ml.bag @ 100 mls/hr IVPB Q1H [facility] Rx#: [id number] Potassium Phosphate 10 100 mmol In Sodium Chloride 0 .9% 100 ml @ 50 mls/hr IV ONCE [facility] Rx#:[id number] Sodium Chloride 0.9% 1, 75 000 ml @ 100 mls/hr IV . Q10H [facility] Rx#:[id number] Sodium Chloride 0.9% 1, 575 75 000 ml @ 75 mls/hr IV . [id number] [facility] Rx#:[id number] Oral 0 Output: Urine 1000 1190 30 Straight 500 500 Other: Voiding Method Diaper Indwelling Catheter Incontinent # Voids 1 # Bowel Movements 1 - Exam Intubated , on vent Abdomen - mildly distended. NG tube to LIWS - Labs CBC & Chem 7: 08/23/17 06:46 08/23/17 17:14 Labs: Abnormal Lab Results - Last 24 Hours (Table) 08/22/17 08/22/17 08/22/17 Range/Units 21:55 22:44 23:58 WBC (3.8-10.6) k/uL RBC (4.30-5.90) m/uL Hgb (13.0-17.5) gm/dL Hct (39.0-53.0) % MCHC (31.0-37.0) g/dL D-Dimer (<0.60) mg/L FEU ABG pCO2 28 L (35-45) mmHg ABG pO2 68 L (83-108) mmHg ABG HCO3 18 L (21-25) mmol/L ABG Total CO2 (19-24) mmol/L ABG O2 Saturation (94-97) % Sodium (137-145) mmol/L Carbon Dioxide (22-30) mmol/L BUN (9-20) mg/dL Glucose (74-99) mg/dL POC Glucose (mg/dL) 188 H (75-99) mg/dL Calcium (8.4-10.2) mg/dL Phosphorus (2.5-4.5) mg/dL Albumin (3.5-5.0) g/dL Urine Protein (Negative) Urine Mucus (None) /hpf Ur Random Sodium 5 L (30-90) mmol/L 08/23/17 08/23/17 08/23/17 Range/Units 05:33 06:46 06:46 WBC 15.2 H (3.8-10.6) k/uL RBC 3.21 L (4.30-5.90) m/uL Hgb 8.5 L (13.0-17.5) gm/dL Hct 28.2 L (39.0-53.0) % MCHC 30.3 L (31.0-37.0) g/dL D-Dimer (<0.60) mg/L FEU ABG pCO2 (35-45) mmHg ABG pO2 (83-108) mmHg ABG HCO3 (21-25) mmol/L ABG Total CO2 (19-24) mmol/L ABG O2 Saturation (94-97) % Sodium 128 L (137-145) mmol/L Carbon Dioxide 19 L (22-30) mmol/L BUN 33 H (9-20) mg/dL Glucose 146 H (74-99) mg/dL POC Glucose (mg/dL) 178 H (75-99) mg/dL Calcium 7.7 L (8.4-10.2) mg/dL Phosphorus 2.4 L (2.5-4.5) mg/dL Albumin 2.1 L (3.5-5.0) g/dL Urine Protein (Negative) Urine Mucus (None) /hpf Ur Random Sodium (30-90) mmol/L 08/23/17 08/23/17 08/23/17 Range/Units 07:11 07:13 08:35 WBC (3.8-10.6) k/uL RBC (4.30-5.90) m/uL Hgb (13.0-17.5) gm/dL Hct (39.0-53.0) % MCHC (31.0-37.0) g/dL D-Dimer 5.03 H (<0.60) mg/L FEU ABG pCO2 26 L (35-45) mmHg ABG pO2 67 L (83-108) mmHg ABG HCO3 17 L (21-25) mmol/L ABG Total CO2 18 L (19-24) mmol/L ABG O2 Saturation (94-97) % Sodium (137-145) mmol/L Carbon Dioxide (22-30) mmol/L BUN (9-20) mg/dL Glucose (74-99) mg/dL POC Glucose (mg/dL) 192 H (75-99) mg/dL Calcium (8.4-10.2) mg/dL Phosphorus (2.5-4.5) mg/dL Albumin (3.5-5.0) g/dL Urine Protein (Negative) Urine Mucus (None) /hpf Ur Random Sodium (30-90) mmol/L 08/23/17 08/23/17 08/23/17 Range/Units 09:17 09:29 12:34 WBC (3.8-10.6) k/uL RBC (4.30-5.90) m/uL Hgb (13.0-17.5) gm/dL Hct (39.0-53.0) % MCHC (31.0-37.0) g/dL D-Dimer (<0.60) mg/L FEU ABG pCO2 32 L (35-45) mmHg ABG pO2 >400 H (83-108) mmHg ABG HCO3 18 L (21-25) mmol/L ABG Total CO2 (19-24) mmol/L ABG O2 Saturation 100.0 H (94-97) % Sodium (137-145) mmol/L Carbon Dioxide (22-30) mmol/L BUN (9-20) mg/dL Glucose (74-99) mg/dL POC Glucose (mg/dL) 176 H (75-99) mg/dL Calcium (8.4-10.2) mg/dL Phosphorus (2.5-4.5) mg/dL Albumin (3.5-5.0) g/dL Urine Protein 1+ H (Negative) Urine Mucus Rare H (None) /hpf Ur Random Sodium (30-90) mmol/L 08/23/17 08/23/17 Range/Units 17:14 17:39 WBC (3.8-10.6) k/uL RBC (4.30-5.90) m/uL Hgb (13.0-17.5) gm/dL Hct (39.0-53.0) % MCHC (31.0-37.0) g/dL D-Dimer (<0.60) mg/L FEU ABG pCO2 (35-45) mmHg ABG pO2 (83-108) mmHg ABG HCO3 (21-25) mmol/L ABG Total CO2 (19-24) mmol/L ABG O2 Saturation (94-97) % Sodium 127 L (137-145) mmol/L Carbon Dioxide (22-30) mmol/L BUN (9-20) mg/dL Glucose (74-99) mg/dL POC Glucose (mg/dL) 193 H (75-99) mg/dL Calcium (8.4-10.2) mg/dL Phosphorus (2.5-4.5) mg/dL Albumin (3.5-5.0) g/dL Urine Protein (Negative) Urine Mucus (None) /hpf Ur Random Sodium (30-90) mmol/L Microbiology - Last 24 Hours (Table) 08/23/17 09:29 Urine Culture - Preliminary Urine,Catheterized 08/23/17 11:53 Sputum Culture - Preliminary Sputum 08/19/17 10:35 Blood Culture - Preliminary Blood No Growth after 96 hours Assessment and Plan (1) Abdominal pain Current Visit: Yes Status: Acute Code(s): R10.9 - UNSPECIFIED ABDOMINAL PAIN SNOMED Code(s): 61511850 (2) Acute blood loss anemia Current Visit: Yes Status: Acute Code(s): D62 - ACUTE POSTHEMORRHAGIC ANEMIA SNOMED Code(s): 360606590 (3) Duodenal ulcer Current Visit: Yes Status: Acute Code(s): K26.9 - DUODENAL ULCER, UNSP ACUTE OR CHRONIC, W/O HEMOR OR PERF SNOMED Code(s): 00555501 Plan: 1. Hb stable 2. Continue TPN 3. WEan off vent as tolerated 4. Dr. Dickerson covering for Dr. Rubi
[2017-08-24 00:47] LABS: Glucose,Whole Blood 312 mg/dL (75-99)
[2017-08-24] MEDS: INSULIN ASPART 100 UNIT/ML 1 ML 10 ML VIAL SQ SCH ×4 (00:50→20:48)
[2017-08-24] MEDS: methylPREDNISolone SOD SUCCI 125 MG/2 ML VIAL IV SCH ×4 (00:51→17:48)
[2017-08-24] MEDS: SODIUM CHLORIDE 0.9% 1,000 ML IV SCH ×2 (00:52→12:57)
[2017-08-24] MEDS: IPRATROPIUM-ALBUTEROL 3 ML NEB INHALATION SCH ×6 (04:03→23:24)
[2017-08-24 05:08] LABS: Anion Gap 8 mmol/L; Blood Urea Nitrogen 39 mg/dL (9-20); Calcium 6.9 mg/dL (8.4-10.2); Carbon Dioxide 17 mmol/L (22-30); Chloride 104 mmol/L (98-107); Glucose 236 mg/dL (74-99); Magnesium 2.4 mg/dL (1.6-2.3); Phosphorus 2.8 mg/dL (2.5-4.5); Potassium 3.6 mmol/L (3.5-5.1); Sodium 129 mmol/L (137-145)
[2017-08-24] MEDS: PIPERACILLIN-TAZOBACTAM 3.375 GM in DEXTROSE/WATER 1 50ML.BAG IVPB SCH ×3 (05:20→19:52)
[2017-08-24 05:31] LABS: ABG Base Excess -6.9 mmol/L; ABG HCO3 18 mmol/L (21-25); ABG PCO2 29 mmHg (35-45); ABG PO2 124 mmHg (83-108); ABG TCO2 19 mmol/L (19-24)
[2017-08-24 05:33] LABS: Basophils % (A) 0 %; Eosinophils % (A) 0 %; HCT 23.2 % (39.0-53.0); HGB 7.1 gm/dL (13.0-17.5); Hypochromasia Marked; Lymphocytes # (A) 0.2 k/uL (1.0-4.8); Lymphocytes % (A) 2 %; MCH 27.3 pg (25.0-35.0); MCHC 30.4 g/dL (31.0-37.0); MCV 89.7 fL (80.0-100.0); Monocytes # (A) 0.4 k/uL (0-1.0); Monocytes % (A) 4 %; Neutrophils # (A) 9.8 k/uL (1.3-7.7); Neutrophils % (A) 93 %; Platelet Count 180 k/uL (150-450); RBC 2.59 m/uL (4.30-5.90); RDW 14.7 % (11.5-15.5); WBC 10.6 k/uL (3.8-10.6)
[2017-08-24 05:57] LABS: Glucose,Whole Blood 289 mg/dL (75-99)
[2017-08-24] MEDS ORDERED: INSULIN ASPART 100 UNIT/ML 1 ML 10 ML VIAL SQ ONE (06:04)
[2017-08-24] MEDS ORDERED: Potassium Replacement Protocol 1 EACH MISC MISCELLANE PRN (06:30)
[2017-08-24] MEDS ORDERED: POTASSIUM CHLORIDE ORAL LIQUID 40 MEQ/30 ML CUP NG-TUBE SCH (07:00)
[2017-08-24] MEDS: SUCRALFATE 1 GM TAB PO SCH ×4 (07:06→20:51)
--- NOTE | 2017-08-24 07:35 | XR ---
EXAMINATION TYPE: XR chest 1V portable DATE OF EXAM: 08/24/2017 HISTORY: Tube placement. REFERENCE: Previous study dated 08/23/2017. FINDINGS: There has been a midline sternotomy. The patient is ET tube and NG tube remain in place, un changed in appearance. There is a unipolar pacemaker place on the left. There is worsening right basilar airspace disease. There is an associated right-sided effusion. The h eart is mildly prominent. IMPRESSION: 1. WORSENING RIGHT BASILAR AIRSPACE DISEASE. 2. SMALL RIGHT-SIDED EFFUSION. 3. CARDIOMEGALY.
--- NOTE | 2017-08-24 08:36 | P.PN ---
Subjective Progress Note Date: 08/24/17 Principal diagnosis: respiratory failure/aspiration pneumonia Patient was transfered to ICU with lethargy and respiratory distress.Patient was intubated by Dr Muñoz. No acute issuses overnight. No bleeding, no seizures, Objective - Vital Signs Vital signs: Vital Signs Temp 98.4 F 08/24/17 04:00 Pulse 73 08/24/17 07:49 Resp 21 08/24/17 07:00 BP 116/58 08/24/17 07:00 Pulse Ox 99 08/24/17 07:00 Intake & Output 08/23/17 08/24/17 08/24/17 18:59 06:59 18:59 Intake Total 1230 1785 Output Total 1190 955 Balance 40 830 Weight 88.5 kg 89.2 kg Intake: IV 1710 Mvi, Adult No.4 with Vit 360 K 10 ml Trace (Conc-1Ml/ Dose) 1 ml Sodium Acetate 20 meq In Amino Acid 5%- D25w+Lytes*E* 1,000 ml @ 30 mls/hr IV .Q24H [facility] Rx #:[id number] Piperacillin-Tazobactam 3 50 .375 gm In Dextrose/Water 1 50ml.bag @ 12.5 mls/hr IVPB Q8H [facility] Rx#: [id number] Sodium Chloride 0.9% 1, 900 000 ml @ 75 mls/hr IV . [id number] [facility] Rx#:[id number] levETIRAcetam IV 1,000 mg 400 In Saline 1 100ml.bag @ 400 mls/hr IVPB Q12HR [facility] Rx#:[id number] Intake, IV Titration 1230 75 Amount Magnesium Sulfate-D5w Pmx 200 1 gm In Dextrose/Water 1 100ml.bag @ 100 mls/hr IVPB Q1H [facility] Rx#: [id number] Mvi, Adult No.4 with Vit 30 K 10 ml Trace (Conc-1Ml/ Dose) 1 ml Sodium Acetate 20 meq In Amino Acid 5%- D25w+Lytes*E* 1,000 ml @ 30 mls/hr IV .Q24H [facility] Rx #:[id number] Piperacillin-Tazobactam 3 50 .375 gm In Dextrose/Water 1 50ml.bag @ 12.5 mls/hr IVPB Q8H [facility] Rx#: [id number] Potassium Chloride 10 meq 200 In Water For Injection 1 100ml.bag @ 100 mls/hr IVPB Q1H [facility] Rx#: [id number] Potassium Phosphate 10 100 mmol In Sodium Chloride 0 .9% 100 ml @ 50 mls/hr IV ONCE [facility] Rx#:[id number] Sodium Chloride 0.9% 1, 75 000 ml @ 100 mls/hr IV . Q10H [facility] Rx#:[id number] Sodium Chloride 0.9% 1, 575 75 000 ml @ 75 mls/hr IV . [id number] [facility] Rx#:[id number] Oral 0 Output: Urine 1190 955 Straight 500 Other: Voiding Method Indwelling Catheter Indwelling Catheter # Bowel Movements 1 - Exam gen:sedated Unequal pupils lungs:clear to auscultation heart:s1s2 abdomen:soft and depressible,non tender ext:no edema - Labs CBC & Chem 7: 08/24/17 04:30 08/24/17 04:30 Labs: Abnormal Lab Results - Last 24 Hours (Table) 08/23/17 08/23/17 08/23/17 Range/Units 08:35 09:17 09:29 RBC (4.30-5.90) m/uL Hgb (13.0-17.5) gm/dL Hct (39.0-53.0) % MCHC (31.0-37.0) g/dL Neutrophils # (1.3-7.7) k/uL Lymphocytes # (1.0-4.8) k/uL ABG pCO2 26 L (35-45) mmHg ABG pO2 67 L (83-108) mmHg ABG HCO3 17 L (21-25) mmol/L ABG Total CO2 18 L (19-24) mmol/L ABG O2 Saturation (94-97) % Sodium (137-145) mmol/L Carbon Dioxide (22-30) mmol/L BUN (9-20) mg/dL Glucose (74-99) mg/dL POC Glucose (mg/dL) 176 H (75-99) mg/dL Calcium (8.4-10.2) mg/dL Magnesium (1.6-2.3) mg/dL Urine Protein 1+ H (Negative) Urine Mucus Rare H (None) /hpf Ur Random Sodium (30-90) mmol/L 08/23/17 08/23/17 08/23/17 Range/Units 12:34 17:14 17:39 RBC (4.30-5.90) m/uL Hgb (13.0-17.5) gm/dL Hct (39.0-53.0) % MCHC (31.0-37.0) g/dL Neutrophils # (1.3-7.7) k/uL Lymphocytes # (1.0-4.8) k/uL ABG pCO2 32 L (35-45) mmHg ABG pO2 >400 H (83-108) mmHg ABG HCO3 18 L (21-25) mmol/L ABG Total CO2 (19-24) mmol/L ABG O2 Saturation 100.0 H (94-97) % Sodium 127 L (137-145) mmol/L Carbon Dioxide (22-30) mmol/L BUN (9-20) mg/dL Glucose (74-99) mg/dL POC Glucose (mg/dL) 193 H (75-99) mg/dL Calcium (8.4-10.2) mg/dL Magnesium (1.6-2.3) mg/dL Urine Protein (Negative) Urine Mucus (None) /hpf Ur Random Sodium (30-90) mmol/L 08/24/17 08/24/17 08/24/17 Range/Units 00:46 04:30 04:30 RBC 2.59 L (4.30-5.90) m/uL Hgb 7.1 L (13.0-17.5) gm/dL Hct 23.2 L (39.0-53.0) % MCHC 30.4 L (31.0-37.0) g/dL Neutrophils # 9.8 H (1.3-7.7) k/uL Lymphocytes # 0.2 L (1.0-4.8) k/uL ABG pCO2 (35-45) mmHg ABG pO2 (83-108) mmHg ABG HCO3 (21-25) mmol/L ABG Total CO2 (19-24) mmol/L ABG O2 Saturation (94-97) % Sodium 129 L (137-145) mmol/L Carbon Dioxide 17 L (22-30) mmol/L BUN 39 H (9-20) mg/dL Glucose 236 H (74-99) mg/dL POC Glucose (mg/dL) 312 H (75-99) mg/dL Calcium 6.9 L (8.4-10.2) mg/dL Magnesium 2.4 H (1.6-2.3) mg/dL Urine Protein (Negative) Urine Mucus (None) /hpf Ur Random Sodium (30-90) mmol/L 08/24/17 08/24/17 08/24/17 Range/Units 04:50 05:30 05:56 RBC (4.30-5.90) m/uL Hgb (13.0-17.5) gm/dL Hct (39.0-53.0) % MCHC (31.0-37.0) g/dL Neutrophils # (1.3-7.7) k/uL Lymphocytes # (1.0-4.8) k/uL ABG pCO2 29 L (35-45) mmHg ABG pO2 124 H (83-108) mmHg ABG HCO3 18 L (21-25) mmol/L ABG Total CO2 (19-24) mmol/L ABG O2 Saturation 100.0 H (94-97) % Sodium (137-145) mmol/L Carbon Dioxide (22-30) mmol/L BUN (9-20) mg/dL Glucose (74-99) mg/dL POC Glucose (mg/dL) 289 H (75-99) mg/dL Calcium (8.4-10.2) mg/dL Magnesium (1.6-2.3) mg/dL Urine Protein (Negative) Urine Mucus (None) /hpf Ur Random Sodium <5 L (30-90) mmol/L Microbiology - Last 24 Hours (Table) 08/23/17 11:53 Gram Stain - Preliminary Sputum Sputum Culture - Preliminary 08/23/17 09:29 Urine Culture - Preliminary Urine,Catheterized 08/19/17 10:35 Blood Culture - Preliminary Blood No Growth after 96 hours Assessment and Plan (1) Aspiration pneumonia Narrative/Plan: Continue vancomycin and Zosyn Current Visit: Yes Status: Acute Code(s): J69.0 - PNEUMONITIS DUE TO INHALATION OF FOOD AND VOMIT SNOMED Code(s): 480666388 (2) Sepsis Narrative/Plan: Supportive care Continue antibiotics and IV fluids Blood pressure stable not on pressors Current Visit: Yes Status: Acute Code(s): A41.9 - SEPSIS, UNSPECIFIED ORGANISM SNOMED Code(s): 70812828 (3) Respiratory distress Narrative/Plan: Status post intubation yesterday Mechanical ventilation Current Visit: Yes Status: Acute Code(s): R06.03 - ACUTE RESPIRATORY DISTRESS SNOMED Code(s): 704384252 (4) Altered mental status Narrative/Plan: Suspected toxic metabolic encephalopathy Discussed with neurology plan for CT of the head's secondary to an equal pupils on exam Current Visit: Yes Status: Acute Code(s): R41.82 - ALTERED MENTAL STATUS, UNSPECIFIED SNOMED Code(s): 703384500 (5) Duodenal ulcer Narrative/Plan: Protonix Current Visit: Yes Status: Acute Code(s): K26.9 - DUODENAL ULCER, UNSP ACUTE OR CHRONIC, W/O HEMOR OR PERF SNOMED Code(s): 71054377 (6) Hyponatremia Narrative/Plan: Sodium 129 Improving Current Visit: Yes Status: Acute Code(s): E87.1 - HYPO-OSMOLALITY AND HYPONATREMIA SNOMED Code(s): 62661729 (7) Gastric outlet obstruction Narrative/Plan: Patient had over 1 L suctioned from the NG tube postintubation Current Visit: Yes Status: Acute Code(s): K31.1 - ADULT HYPERTROPHIC PYLORIC STENOSIS SNOMED Code(s): 264295623 (8) Malnutrition Narrative/Plan: Currently on TPN Current Visit: Yes Status: Acute Code(s): E46 - UNSPECIFIED PROTEIN-CALORIE MALNUTRITION SNOMED Code(s): 97790086 (9) Chronic diastolic heart failure Current Visit: Yes Status: Acute Code(s): I50.32 - CHRONIC DIASTOLIC ( CONGESTIVE) HEART FAILURE SNOMED Code(s): 242188659 (10) Seizure Narrative/Plan: On Keppra No evidence of seizure activity in the last 24 hours Current Visit: Yes Status: Acute Code(s): R56.9 - UNSPECIFIED CONVULSIONS SNOMED Code(s): 77070071 (11) Hypertension Current Visit: Yes Status: Acute Code(s): I10 - ESSENTIAL (PRIMARY) HYPERTENSION SNOMED Code(s): 87788786 (12) CAD (coronary artery disease) Current Visit: No Status: Acute Code(s): I25.10 - ATHSCL HEART DISEASE OF [place] CORONARY ARTERY W/O ANG PCTRS SNOMED Code(s): 72480199 (13) History of CVA (cerebrovascular accident) Narrative/Plan: With residual right-sided weakness Current Visit: No Status: Acute Code(s): Z86.73 - PRSNL HX OF TIA (TIA), AND CEREB INFRC W/O RESID DEFICITS SNOMED Code(s): 455354333 (14) BPH (benign prostatic hyperplasia) Current Visit: Yes Status: Acute Code(s): N40.0 - BENIGN PROSTATIC HYPERPLASIA WITHOUT LOWER URINRY TRACT SYMP SNOMED Code(s): 695428990
--- NOTE | 2017-08-24 09:15 | CT ---
EXAMINATION TYPE: CT brain wo con DATE OF EXAM: 08/24/2017 COMPARISON: Previous study dated 08/21/2017 HISTORY: altered mental status, pupil changes CT DLP: 1043.6 mGycm Automated exposure control for dose reduction was used. FINDINGS: There is evolving infarction involving the left temporal lobe and posterior left occipital lobe. Ther e is marked widening of the sylvian fissure on the left. There is an enlarging acute on chronic subdu ral hematoma in the left parietal region with maximal thickness of 1.2 cm. There is generalized atrophic changes. There is diffuse periventricular white matter lucency compatib le with chronic white matter ischemic change. There is evolving encephalomalacia involving the left c erebellar hemisphere. There is no acute intracranial blood. There is no midline shift. Visualized portions of the paranasal sinuses and mastoids are clear. No depressed skull fracture is s een. IMPRESSION: 1. EVOLVING LEFT TEMPORAL AND OCCIPITAL INFARCT. 2. 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 3. EVIDENCE OF EVOLVING INFARCTION INVOLVING THE LEFT CEREBELLAR HEMISPHERE. 4. MARKED WIDENING OF THE LEFT SYLVIAN FISSURE MAY REFLECT OLD INFARCTION. THIS MAY BE SECONDARY TO A TROPHY. 5. ATROPHIC CHANGE. 6. CHRONIC WHITE MATTER ISCHEMIC CHANGE.
[2017-08-24] MEDS: 1: MVI, ADULT NO.4 WITH VIT K 10 ML, TRACE (CONC-1ML/DOSE) 1 ML, SODIUM ACETATE 20 MEQ i IV SCH ×8 (10:10→21:20)
[2017-08-24] MEDS: CHLORHEXIDINE GLUCONATE 15 ML CUP MUCOUS MEM SCH ×2 (10:11→20:50)
[2017-08-24] MEDS: levETIRAcetam IV 1,000 MG in SALINE 1 100ML.BAG IVPB SCH ×2 (10:11→20:50)
[2017-08-24] MEDS: PANTOPRAZOLE 40 MG/10 ML VIAL IV SCH ×2 (10:12→20:50)
[2017-08-24] MEDS ORDERED: LORazepam 2 MG/ML INJ IV PRN (10:14)
--- NOTE | 2017-08-24 10:58 | P.PN ---
Subjective Patient is seen in follow-up for hyponatremia. Sodium level is up to 129 today. He's receiving TPN at 75 mL an hour and also normal saline at 75 mL an hour. Patient does have a history of stroke in his brain CT from yesterday revealed an evolving left temporal and occipital infarct. He is also noted to have an acute on chronic left parietal subdural hematoma. He is currently intubated. Creatinine is relatively stable at 1.1. He is nonoliguric. Vital signs are stable. General: The patient appeared well nourished and normally developed. Intubated. HEENT: Head exam is unremarkable. Neck is without jugular venous distension. LUNGS: Lungs are clear to auscultation and percussion. Breath sounds decreased. HEART: Rate and Rhythm are regular. First and second heart sounds normal. No murmurs, rubs or gallops. ABDOMEN: Abdominal exam reveals normal bowel sounds. Non-tender and non- distended. No evidence of peritonitis. EXTREMITITES: No clubbing, cyanosis, or edema. Objective - Vital Signs Vital signs: Vital Signs Temp 97.7 F 08/24/17 08:00 Pulse 76 08/24/17 10:00 Resp 21 08/24/17 10:00 BP 89/50 08/24/17 10:00 Pulse Ox 98 08/24/17 10:00 Intake & Output 08/23/17 08/24/17 08/24/17 18:59 06:59 18:59 Intake Total 1230 1785 550 Output Total 1190 955 190 Balance 40 830 360 Weight 88.5 kg 89.2 kg 89.2 kg Intake: IV 1710 300 Mvi, Adult No.4 with Vit 360 75 K 10 ml Trace (Conc-1Ml/ Dose) 1 ml Sodium Acetate 20 meq In Amino Acid 5%- D25w+Lytes*E* 1,000 ml @ 30 mls/hr IV .Q24H [facility] Rx #:[id number] Piperacillin-Tazobactam 3 50 .375 gm In Dextrose/Water 1 50ml.bag @ 12.5 mls/hr IVPB Q8H [facility]PL[facility] Rx#: [id number] Sodium Chloride 0.9% 1, 900 225 000 ml @ 75 mls/hr IV . [id number] REPLACED BY [facility] Rx#:[id number] levETIRAcetam IV 1,000 mg 400 In Saline 1 100ml.bag @ 400 mls/hr IVPB Q12HR [facility] BY [facility] Rx#:[id number] Intake, IV Titration 1230 75 250 Amount Magnesium Sulfate-D5w Pmx 200 1 gm In Dextrose/Water 1 100ml.bag @ 100 mls/hr IVPB Q1H [facility] Rx#: [id number] Mvi, Adult No.4 with Vit 30 K 10 ml Trace (Conc-1Ml/ Dose) 1 ml Sodium Acetate 20 meq In Amino Acid 5%- D25w+Lytes*E* 1,000 ml @ 30 mls/hr IV .Q24H [facility] Rx #:[id number] Mvi, Adult No.4 with Vit 150 K 10 ml Trace (Conc-1Ml/ Dose) 1 ml Sodium Acetate 20 meq In Amino Acid 5%- D25w+Lytes*E* 1,000 ml @ 75 mls/hr IV .BY DURATION [facility] Rx#:[id number] Piperacillin-Tazobactam 3 50 .375 gm In Dextrose/Water 1 50ml.bag @ 12.5 mls/hr IVPB Q8H [facility] Rx#: [id number] Potassium Chloride 10 meq 200 In Water For Injection 1 100ml.bag @ 100 mls/hr IVPB Q1H [facility] Rx#: [id number] Potassium Phosphate 10 100 mmol In Sodium Chloride 0 .9% 100 ml @ 50 mls/hr IV ONCE [facility] Rx#:[id number] Propofol 1,000 mg In 100 Empty Bag 1 bag @ Titrate IV .Q0M [facility] Rx#: [id number] Sodium Chloride 0.9% 1, 75 000 ml @ 100 mls/hr IV . Q10H [facility]PL[facility]ED [facility] Rx#:[id number] Sodium Chloride 0.9% 1, 575 75 000 ml @ 75 mls/hr IV . [id number] REPLACED BY [facility] Rx#:[id number] Oral 0 Output: Urine 1190 955 190 Straight 500 Other: Voiding Method Indwelling Catheter Indwelling Catheter # Bowel Movements 1 - Labs CBC & Chem 7: 08/24/17 04:30 08/24/17 04:30 Labs: Abnormal Lab Results - Last 24 Hours (Table) 08/23/17 08/23/17 08/23/17 Range/Units 06:46 12:34 17:14 RBC (4.30-5.90) m/uL Hgb (13.0-17.5) gm/dL Hct (39.0-53.0) % MCHC (31.0-37.0) g/dL Neutrophils # (1.3-7.7) k/uL Lymphocytes # (1.0-4.8) k/uL ABG pCO2 32 L (35-45) mmHg ABG pO2 >400 H (83-108) mmHg ABG HCO3 18 L (21-25) mmol/L ABG O2 Saturation 100.0 H (94-97) % Sodium 127 L (137-145) mmol/L Carbon Dioxide (22-30) mmol/L BUN (9-20) mg/dL Glucose (74-99) mg/dL POC Glucose (mg/dL) (75-99) mg/dL Calcium (8.4-10.2) mg/dL Magnesium (1.6-2.3) mg/dL Iron 4 L (65-175) ug/dL TIBC 221 L (228-460) ug/dL Iron Saturation 1.81 L (15.00-50.00) Ur Random Sodium (30-90) mmol/L 08/23/17 08/24/17 08/24/17 Range/Units 17:39 00:46 04:30 RBC (4.30-5.90) m/uL Hgb (13.0-17.5) gm/dL Hct (39.0-53.0) % MCHC (31.0-37.0) g/dL Neutrophils # (1.3-7.7) k/uL Lymphocytes # (1.0-4.8) k/uL ABG pCO2 (35-45) mmHg ABG pO2 (83-108) mmHg ABG HCO3 (21-25) mmol/L ABG O2 Saturation (94-97) % Sodium 129 L (137-145) mmol/L Carbon Dioxide 17 L (22-30) mmol/L BUN 39 H (9-20) mg/dL Glucose 236 H (74-99) mg/dL POC Glucose (mg/dL) 193 H 312 H (75-99) mg/dL Calcium 6.9 L (8.4-10.2) mg/dL Magnesium 2.4 H (1.6-2.3) mg/dL Iron (65-175) ug/dL TIBC (228-460) ug/dL Iron Saturation (15.00-50.00) Ur Random Sodium (30-90) mmol/L 08/24/17 08/24/17 08/24/17 Range/Units 04:30 04:50 05:30 RBC 2.59 L (4.30-5.90) m/uL Hgb 7.1 L (13.0-17.5) gm/dL Hct 23.2 L (39.0-53.0) % MCHC 30.4 L (31.0-37.0) g/dL Neutrophils # 9.8 H (1.3-7.7) k/uL Lymphocytes # 0.2 L (1.0-4.8) k/uL ABG pCO2 29 L (35-45) mmHg ABG pO2 124 H (83-108) mmHg ABG HCO3 18 L (21-25) mmol/L ABG O2 Saturation 100.0 H (94-97) % Sodium (137-145) mmol/L Carbon Dioxide (22-30) mmol/L BUN (9-20) mg/dL Glucose (74-99) mg/dL POC Glucose (mg/dL) (75-99) mg/dL Calcium (8.4-10.2) mg/dL Magnesium (1.6-2.3) mg/dL Iron (65-175) ug/dL TIBC (228-460) ug/dL Iron Saturation (15.00-50.00) Ur Random Sodium <5 L (30-90) mmol/L 08/24/17 Range/Units 05:56 RBC (4.30-5.90) m/uL Hgb (13.0-17.5) gm/dL Hct (39.0-53.0) % MCHC (31.0-37.0) g/dL Neutrophils # (1.3-7.7) k/uL Lymphocytes # (1.0-4.8) k/uL ABG pCO2 (35-45) mmHg ABG pO2 (83-108) mmHg ABG HCO3 (21-25) mmol/L ABG O2 Saturation (94-97) % Sodium (137-145) mmol/L Carbon Dioxide (22-30) mmol/L BUN (9-20) mg/dL Glucose (74-99) mg/dL POC Glucose (mg/dL) 289 H (75-99) mg/dL Calcium (8.4-10.2) mg/dL Magnesium (1.6-2.3) mg/dL Iron (65-175) ug/dL TIBC (228-460) ug/dL Iron Saturation (15.00-50.00) Ur Random Sodium (30-90) mmol/L Microbiology - Last 24 Hours (Table) 08/23/17 11:53 Gram Stain - Preliminary Sputum Sputum Culture - Preliminary 08/23/17 09:29 Urine Culture - Preliminary Urine,Catheterized 08/19/17 10:35 Blood Culture - Preliminary Blood No Growth after 96 hours Assessment and Plan Plan: Assessment: #1. Hypovolemic hyponatremia improving with IV hydration. Sodium level up to 129 today. Urine sodium was noted to be less than 5. #2. Metabolic acidosis which is compensatory for respiratory alkalosis. #3. History of CVA with right-sided weakness. #4. Duodenal ulcer with partial obstruction being followed by surgery and GI. #5. Anemia. Severe iron deficiency noted. Plan: Continue normal saline to be run at 75 mL an hour. Continue with TPN. Ferrlicit 125 mg IV daily for 3 days. First dose today. Family considering comfort measures. I
--- NOTE | 2017-08-24 11:44 | P.PN ---
Subjective Progress Note Date: 08/24/17 Principal diagnosis: Altered Mental Status Interval Update (08/24/17): Neurology is following on a 82 year old male with a complex medical history that is currently in the ICU intubated and on a ventilator. 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 CT Angiogram previously noted left internal carotid artery occlusion, plaque in the right carotid bulb and proximal right ICA without hemodynamically significant stenosis. CT brain noted no acute process. 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 Today, on rounding the patient was placed on sedation holiday by nursing for a full neurological assessment. The patient was evaluated and found to be; less responsive, less interactive while on the ventilator during sedation holiday. Patient was observed to have a left pupil at 1 mm, right pupil 2-3 mm. Patient withdrew to pain in all four extremities. I requested stat CT brain based on the physical exam findings to rule out acute stroke or other neurological changes. Objective - Vital Signs Vital signs: Vital Signs Temp 97.7 F 08/24/17 08:00 Pulse 76 08/24/17 10:00 Resp 21 08/24/17 10:00 BP 89/50 08/24/17 10:00 Pulse Ox 98 08/24/17 10:00 Intake & Output 08/23/17 08/24/17 08/24/17 18:59 06:59 18:59 Intake Total 1230 1785 550 Output Total 1190 955 190 Balance 40 830 360 Weight 88.5 kg 89.2 kg 89.2 kg Intake: IV 1710 300 Mvi, Adult No.4 with Vit 360 75 K 10 ml Trace (Conc-1Ml/ Dose) 1 ml Sodium Acetate 20 meq In Amino Acid 5%- D25w+Lytes*E* 1,000 ml @ 30 mls/hr IV .Q24H [facility] Rx #:[id number] Piperacillin-Tazobactam 3 50 .375 gm In Dextrose/Water 1 50ml.bag @ 12.5 mls/hr IVPB Q8H [facility] Rx#: [id number] Sodium Chloride 0.9% 1, 900 225 000 ml @ 75 mls/hr IV . [id number] [facility] Rx#:[id number] levETIRAcetam IV 1,000 mg 400 In Saline 1 100ml.bag @ 400 mls/hr IVPB Q12HR [facility] Rx#:[id number] Intake, IV Titration 1230 75 250 Amount Magnesium Sulfate-D5w Pmx 200 1 gm In Dextrose/Water 1 100ml.bag @ 100 mls/hr IVPB Q1H [facility] Rx#: [id number] Mvi, Adult No.4 with Vit 30 K 10 ml Trace (Conc-1Ml/ Dose) 1 ml Sodium Acetate 20 meq In Amino Acid 5%- D25w+Lytes*E* 1,000 ml @ 30 mls/hr IV .Q24H [facility] Rx #:[id number] Mvi, Adult No.4 with Vit 150 K 10 ml Trace (Conc-1Ml/ Dose) 1 ml Sodium Acetate 20 meq In Amino Acid 5%- D25w+Lytes*E* 1,000 ml @ 75 mls/hr IV .BY DURATION [facility] Rx#:[id number] Piperacillin-Tazobactam 3 50 .375 gm In Dextrose/Water 1 50ml.bag @ 12.5 mls/hr IVPB Q8H [facility] Rx#: [id number] Potassium Chloride 10 meq 200 In Water For Injection 1 100ml.bag @ 100 mls/hr IVPB Q1H [facility] Rx#: [id number] Potassium Phosphate 10 100 mmol In Sodium Chloride 0 .9% 100 ml @ 50 mls/hr IV ONCE [facility] Rx#:[id number] Propofol 1,000 mg In 100 Empty Bag 1 bag @ Titrate IV .Q0M [facility] Rx#: [id number] Sodium Chloride 0.9% 1, 75 000 ml @ 100 mls/hr IV . Q10H [facility] Rx#:[id number] Sodium Chloride 0.9% 1, 575 75 000 ml @ 75 mls/hr IV . [id number] [facility] Rx#:[id number] Oral 0 Output: Urine 1190 955 190 Straight 500 Other: Voiding Method Indwelling Catheter Indwelling Catheter # Bowel Movements 1 - Exam General appearance: on ventilator, responsive to deep painful stimuli Head: Atraumatic, normocephalic, normal inspection Eyes: Pupils unequal at 1 mm (left), 2-3 mm (right) Absent scleral icterus, conjunctival injection, nystagmus, periorbital swelling. Ear, nose and throat: Normal exam, mucous membranes moist Neck: Normal inspection, absent tenderness, lymphadenopathy. Respiratory: On ventilator Cardiovascular: Telemetry monitoring GI/abdominal: NA Extremities: right below the knee amputation, only moves with pain. Neurological: Alert and oriented 3, cranial nerves II through XII not in tact, pupillary changes noted, no seizure activity noted on physical exam Psychological: flat - Labs CBC & Chem 7: 08/24/17 04:30 08/24/17 04:30 Labs: Abnormal Lab Results - Last 24 Hours (Table) 08/23/17 08/23/17 08/23/17 Range/Units 06:46 12:34 17:14 RBC (4.30-5.90) m/uL Hgb (13.0-17.5) gm/dL Hct (39.0-53.0) % MCHC (31.0-37.0) g/dL Neutrophils # (1.3-7.7) k/uL Lymphocytes # (1.0-4.8) k/uL ABG pCO2 32 L (35-45) mmHg ABG pO2 >400 H (83-108) mmHg ABG HCO3 18 L (21-25) mmol/L ABG O2 Saturation 100.0 H (94-97) % Sodium 127 L (137-145) mmol/L Carbon Dioxide (22-30) mmol/L BUN (9-20) mg/dL Glucose (74-99) mg/dL POC Glucose (mg/dL) (75-99) mg/dL Calcium (8.4-10.2) mg/dL Magnesium (1.6-2.3) mg/dL Iron 4 L (65-175) ug/dL TIBC 221 L (228-460) ug/dL Iron Saturation 1.81 L (15.00-50.00) Ur Random Sodium (30-90) mmol/L 08/23/17 08/24/17 08/24/17 Range/Units 17:39 00:46 04:30 RBC (4.30-5.90) m/uL Hgb (13.0-17.5) gm/dL Hct (39.0-53.0) % MCHC (31.0-37.0) g/dL Neutrophils # (1.3-7.7) k/uL Lymphocytes # (1.0-4.8) k/uL ABG pCO2 (35-45) mmHg ABG pO2 (83-108) mmHg ABG HCO3 (21-25) mmol/L ABG O2 Saturation (94-97) % Sodium 129 L (137-145) mmol/L Carbon Dioxide 17 L (22-30) mmol/L BUN 39 H (9-20) mg/dL Glucose 236 H (74-99) mg/dL POC Glucose (mg/dL) 193 H 312 H (75-99) mg/dL Calcium 6.9 L (8.4-10.2) mg/dL Magnesium 2.4 H (1.6-2.3) mg/dL Iron (65-175) ug/dL TIBC (228-460) ug/dL Iron Saturation (15.00-50.00) Ur Random Sodium (30-90) mmol/L 08/24/17 08/24/17 08/24/17 Range/Units 04:30 04:50 05:30 RBC 2.59 L (4.30-5.90) m/uL Hgb 7.1 L (13.0-17.5) gm/dL Hct 23.2 L (39.0-53.0) % MCHC 30.4 L (31.0-37.0) g/dL Neutrophils # 9.8 H (1.3-7.7) k/uL Lymphocytes # 0.2 L (1.0-4.8) k/uL ABG pCO2 29 L (35-45) mmHg ABG pO2 124 H (83-108) mmHg ABG HCO3 18 L (21-25) mmol/L ABG O2 Saturation 100.0 H (94-97) % Sodium (137-145) mmol/L Carbon Dioxide (22-30) mmol/L BUN (9-20) mg/dL Glucose (74-99) mg/dL POC Glucose (mg/dL) (75-99) mg/dL Calcium (8.4-10.2) mg/dL Magnesium (1.6-2.3) mg/dL Iron (65-175) ug/dL TIBC (228-460) ug/dL Iron Saturation (15.00-50.00) Ur Random Sodium <5 L (30-90) mmol/L 08/24/17 Range/Units 05:56 RBC (4.30-5.90) m/uL Hgb (13.0-17.5) gm/dL Hct (39.0-53.0) % MCHC (31.0-37.0) g/dL Neutrophils # (1.3-7.7) k/uL Lymphocytes # (1.0-4.8) k/uL ABG pCO2 (35-45) mmHg ABG pO2 (83-108) mmHg ABG HCO3 (21-25) mmol/L ABG O2 Saturation (94-97) % Sodium (137-145) mmol/L Carbon Dioxide (22-30) mmol/L BUN (9-20) mg/dL Glucose (74-99) mg/dL POC Glucose (mg/dL) 289 H (75-99) mg/dL Calcium (8.4-10.2) mg/dL Magnesium (1.6-2.3) mg/dL Iron (65-175) ug/dL TIBC (228-460) ug/dL Iron Saturation (15.00-50.00) Ur Random Sodium (30-90) mmol/L Microbiology - Last 24 Hours (Table) 08/23/17 09:29 Urine Culture - Final Urine,Catheterized 08/23/17 11:53 Gram Stain - Preliminary Sputum Sputum Culture - Preliminary 08/19/17 10:35 Blood Culture - Preliminary Blood No Growth after 96 hours Assessment and Plan (1) Abdominal pain Current Visit: Yes Status: Acute Code(s): R10.9 - UNSPECIFIED ABDOMINAL PAIN SNOMED Code(s): 22694866 (2) Altered mental status Current Visit: Yes Status: Acute Code(s): R41.82 - ALTERED MENTAL STATUS, UNSPECIFIED SNOMED Code(s): 922138434 (3) Colitis Current Visit: Yes Status: Acute Code(s): K52.9 - NONINFECTIVE GASTROENTERITIS AND COLITIS, UNSPECIFIED SNOMED Code(s): 91202385 (4) Duodenal ulcer Current Visit: Yes Status: Acute Code(s): K26.9 - DUODENAL ULCER, UNSP ACUTE OR CHRONIC, W/O HEMOR OR PERF SNOMED Code(s): 68979230 (5) History of CVA (cerebrovascular accident) Current Visit: No Status: Acute Code(s): Z86.73 - PRSNL HX OF TIA (TIA), AND CEREB INFRC W/O RESID DEFICITS SNOMED Code(s): 088985783 (6) Hx of CABG Current Visit: No Status: Acute Code(s): Z95.1 - PRESENCE OF AORTOCORONARY BYPASS GRAFT SNOMED Code(s): 284992579 (7) Cerebellar infarct Current Visit: Yes Status: Acute Code(s): I63.9 - CEREBRAL INFARCTION, UNSPECIFIED SNOMED Code(s): 24934509 (8) Subdural hematoma Current Visit: Yes Status: Acute Code(s): I62.00 - NONTRAUMATIC SUBDURAL HEMORRHAGE, UNSPECIFIED SNOMED Code(s): 08928663 (9) Left temporal lobe infarction Current Visit: Yes Status: Acute Code(s): I63.50 - CEREB INFRC DUE TO UNSP OCCLS OR STENOS OF UNSP CEREB ARTERY SNOMED Code(s): 424721525 (10) Occipital infarction Current Visit: Yes Status: Acute Code(s): I63.9 - CEREBRAL INFARCTION, UNSPECIFIED SNOMED Code(s): 753679595 (11) White matter changes Current Visit: Yes Status: Acute Code(s): CZM1979 - SNOMED Code(s): 981266278 Plan: 1. Encephalopathy 2. Hyponatremia 3. Altered mental status 4. Anemia 5. ICA occlusion 6. NEW- evolving left temporal infarct 7. NEW-evolving occipital infarct 8. NEW-evolving left parietal subdural hematoma 9. NEW-evolving left cerebellar infarct 10. White matter changes-marked widening of the left sylvian fissure, evidence of old infarct Patient is known to be encephalopathic based on elevated WBCs. CT Brain on noted no acute process. Patient was intubated on 08/22/17. While rounding today, the patient was reportedly less interactive. Provider conducted physical exam and noted pupillary changes of 1 mm on left and 2-3 mm on right. Provider is familiar with the patient from previous rounding. Provider ordered stat CT brain. EEG was previously ordered. CT Brain results 08/24/17: evolving left temporal and occipital infarct, enlarging left parietal subdural hematoma, evolving left cerebellar infarct, marked widening of the left sylvian fissure, evidence of old infarct. Other changes include chronic white matter changes. Previous consideration and recommendation for vascular consult related to ICA occlusion as noted on imaging if not already requested was recommended. Prescribed ativan 1 mg, q20 min until seizure ceases if break through seizure occurs. Patient currently on Keppra. Supervising physician notified by phone and advised of prognosis. Status: Neurology recommends discussion with family for termination of care / hospice. Prognosis GRAVE. Contact our office with any questions or concerns. Ernie Escobedo, [employer]CTION [employer]-C Neurology For DR Fabian Aquino MD I discussed the patients history, physical exam, diagnostic testing, lab work and imaging with Dr Aquino prior to implementing the plan above. He agrees with the plan as implemented prior to implementation.
[2017-08-24] MEDS ORDERED: SODIUM FERRIC GLUCONAT-SUCROSE 125 MG in SODIUM CHLORIDE 0.9% 100 ML IVPB SCH (12:00)
[2017-08-24 12:15] LABS: Glucose,Whole Blood 276 mg/dL (75-99)
[2017-08-24] MEDS: ISOSORBIDE MONONITRATE ER 30 MG TAB.ER.24H PO SCH (12:38)
[2017-08-24] MEDS: amLODIPine 10 MG TAB PO SCH (12:38)
[2017-08-24] MEDS: OXYBUTYNIN CHLORIDE 5 MG TAB PO SCH (12:38)
[2017-08-24] MEDS: LISINOPRIL 20 MG TAB PO SCH (12:38)
[2017-08-24] MEDS: TAMSULOSIN 0.4 MG CAP.ER.24H PO SCH (12:56)
[2017-08-24] MEDS: SERTRALINE 100 MG TAB PO SCH (12:56)
[2017-08-24] MEDS: ALLOPURINOL 300 MG TAB PO SCH (12:56)
[2017-08-24] MEDS: ASPIRIN 81 MG PO SCH (12:56)
[2017-08-24] MEDS: ATORVASTATIN 10 MG TAB PO SCH (12:56)
--- NOTE | 2017-08-24 13:33 | P.PN ---
Subjective Progress Note Date: 08/24/17 Principal diagnosis: Duodenal ulcer History prostate cancer with radiation History of a CVA with right-sided weakness and dysphasia Status post EGD with biopsy done on August 20 showed large duodenal ulcer involving the post bulbar area and proximal descending duodenum with evidence of partial obstruction including retained food debris consistent with reflux Present on admission abdominal pain with nausea vomiting Acute blood loss anemia Partial gastric outlet obstruction per EGD Patient intubated, sedated. Objective - Vital Signs Vital signs: Vital Signs Temp 97.9 F 08/24/17 12:04 Pulse 78 08/24/17 12:09 Resp 20 08/24/17 12:04 BP 94/54 08/24/17 12:04 Pulse Ox 99 08/24/17 12:04 Intake & Output 08/23/17 08/24/17 08/24/17 18:59 06:59 18:59 Intake Total 1230 1785 1000 Output Total 1790 955 290 Balance -560 830 710 Weight 88.5 kg 89.2 kg 89.2 kg Intake: IV 1710 750 Mvi, Adult No.4 with Vit 360 225 K 10 ml Trace (Conc-1Ml/ Dose) 1 ml Sodium Acetate 20 meq In Amino Acid 5%- D25w+Lytes*E* 1,000 ml @ 30 mls/hr IV .Q24H [facility] Rx #:[id number] Piperacillin-Tazobactam 3 50 50 .375 gm In Dextrose/Water 1 50ml.bag @ 12.5 mls/hr IVPB Q8H [facility] Rx#: [id number] Sodium Chloride 0.9% 1, 900 375 000 ml @ 75 mls/hr IV . [id number] [facility] Rx#:[id number] levETIRAcetam IV 1,000 mg 400 100 In Saline 1 100ml.bag @ 400 mls/hr IVPB Q12HR [facility] Rx#:[id number] Intake, IV Titration 1230 75 250 Amount Magnesium Sulfate-D5w Pmx 200 1 gm In Dextrose/Water 1 100ml.bag @ 100 mls/hr IVPB Q1H [facility] Rx#: [id number] Mvi, Adult No.4 with Vit 30 K 10 ml Trace (Conc-1Ml/ Dose) 1 ml Sodium Acetate 20 meq In Amino Acid 5%- D25w+Lytes*E* 1,000 ml @ 30 mls/hr IV .Q24H [facility] Rx #:[id number] Mvi, Adult No.4 with Vit 150 K 10 ml Trace (Conc-1Ml/ Dose) 1 ml Sodium Acetate 20 meq In Amino Acid 5%- D25w+Lytes*E* 1,000 ml @ 75 mls/hr IV .BY DURATION [facility] Rx#:[id number] Piperacillin-Tazobactam 3 50 .375 gm In Dextrose/Water 1 50ml.bag @ 12.5 mls/hr IVPB Q8H [facility] Rx#: [id number] Potassium Chloride 10 meq 200 In Water For Injection 1 100ml.bag @ 100 mls/hr IVPB Q1H [facility] Rx#: [id number] Potassium Phosphate 10 100 mmol In Sodium Chloride 0 .9% 100 ml @ 50 mls/hr IV ONCE [facility] Rx#:[id number] Propofol 1,000 mg In 100 Empty Bag 1 bag @ Titrate IV .Q0M [facility] Rx#: [id number] Sodium Chloride 0.9% 1, 75 000 ml @ 100 mls/hr IV . Q10H [facility] Rx#:[id number] Sodium Chloride 0.9% 1, 575 75 000 ml @ 75 mls/hr IV . [id number] [facility] Rx#:[id number] Oral 0 Output: Gastric Drainage 600 Urine 1190 955 290 Straight 500 Other: Voiding Method Indwelling Catheter Indwelling Catheter Indwelling Catheter # Bowel Movements 1 - Exam Intubated , on vent Abdomen - mildly distended. NG tube to LIWS - Labs CBC & Chem 7: 08/24/17 04:30 08/24/17 04:30 Labs: Abnormal Lab Results - Last 24 Hours (Table) 08/23/17 08/23/17 08/23/17 Range/Units 06:46 17:14 17:39 RBC (4.30-5.90) m/uL Hgb (13.0-17.5) gm/dL Hct (39.0-53.0) % MCHC (31.0-37.0) g/dL Neutrophils # (1.3-7.7) k/uL Lymphocytes # (1.0-4.8) k/uL ABG pCO2 (35-45) mmHg ABG pO2 (83-108) mmHg ABG HCO3 (21-25) mmol/L ABG O2 Saturation (94-97) % Sodium 127 L (137-145) mmol/L Carbon Dioxide (22-30) mmol/L BUN (9-20) mg/dL Glucose (74-99) mg/dL POC Glucose (mg/dL) 193 H (75-99) mg/dL Calcium (8.4-10.2) mg/dL Magnesium (1.6-2.3) mg/dL Iron 4 L (65-175) ug/dL TIBC 221 L (228-460) ug/dL Iron Saturation 1.81 L (15.00-50.00) Ur Random Sodium (30-90) mmol/L 08/24/17 08/24/17 08/24/17 Range/Units 00:46 04:30 04:30 RBC 2.59 L (4.30-5.90) m/uL Hgb 7.1 L (13.0-17.5) gm/dL Hct 23.2 L (39.0-53.0) % MCHC 30.4 L (31.0-37.0) g/dL Neutrophils # 9.8 H (1.3-7.7) k/uL Lymphocytes # 0.2 L (1.0-4.8) k/uL ABG pCO2 (35-45) mmHg ABG pO2 (83-108) mmHg ABG HCO3 (21-25) mmol/L ABG O2 Saturation (94-97) % Sodium 129 L (137-145) mmol/L Carbon Dioxide 17 L (22-30) mmol/L BUN 39 H (9-20) mg/dL Glucose 236 H (74-99) mg/dL POC Glucose (mg/dL) 312 H (75-99) mg/dL Calcium 6.9 L (8.4-10.2) mg/dL Magnesium 2.4 H (1.6-2.3) mg/dL Iron (65-175) ug/dL TIBC (228-460) ug/dL Iron Saturation (15.00-50.00) Ur Random Sodium (30-90) mmol/L 08/24/17 08/24/17 08/24/17 Range/Units 04:50 05:30 05:56 RBC (4.30-5.90) m/uL Hgb (13.0-17.5) gm/dL Hct (39.0-53.0) % MCHC (31.0-37.0) g/dL Neutrophils # (1.3-7.7) k/uL Lymphocytes # (1.0-4.8) k/uL ABG pCO2 29 L (35-45) mmHg ABG pO2 124 H (83-108) mmHg ABG HCO3 18 L (21-25) mmol/L ABG O2 Saturation 100.0 H (94-97) % Sodium (137-145) mmol/L Carbon Dioxide (22-30) mmol/L BUN (9-20) mg/dL Glucose (74-99) mg/dL POC Glucose (mg/dL) 289 H (75-99) mg/dL Calcium (8.4-10.2) mg/dL Magnesium (1.6-2.3) mg/dL Iron (65-175) ug/dL TIBC (228-460) ug/dL Iron Saturation (15.00-50.00) Ur Random Sodium <5 L (30-90) mmol/L 08/24/17 Range/Units 12:14 RBC (4.30-5.90) m/uL Hgb (13.0-17.5) gm/dL Hct (39.0-53.0) % MCHC (31.0-37.0) g/dL Neutrophils # (1.3-7.7) k/uL Lymphocytes # (1.0-4.8) k/uL ABG pCO2 (35-45) mmHg ABG pO2 (83-108) mmHg ABG HCO3 (21-25) mmol/L ABG O2 Saturation (94-97) % Sodium (137-145) mmol/L Carbon Dioxide (22-30) mmol/L BUN (9-20) mg/dL Glucose (74-99) mg/dL POC Glucose (mg/dL) 276 H (75-99) mg/dL Calcium (8.4-10.2) mg/dL Magnesium (1.6-2.3) mg/dL Iron (65-175) ug/dL TIBC (228-460) ug/dL Iron Saturation (15.00-50.00) Ur Random Sodium (30-90) mmol/L Microbiology - Last 24 Hours (Table) 08/19/17 10:35 Blood Culture - Preliminary Blood No Growth after 120 hours 08/23/17 09:29 Urine Culture - Final Urine,Catheterized 08/23/17 11:53 Gram Stain - Preliminary Sputum Sputum Culture - Preliminary Assessment and Plan (1) Abdominal pain Current Visit: Yes Status: Acute Code(s): R10.9 - UNSPECIFIED ABDOMINAL PAIN SNOMED Code(s): 45514334 (2) Acute blood loss anemia Current Visit: Yes Status: Acute Code(s): D62 - ACUTE POSTHEMORRHAGIC ANEMIA SNOMED Code(s): 190868691 (3) Duodenal ulcer Current Visit: Yes Status: Acute Code(s): K26.9 - DUODENAL ULCER, UNSP ACUTE OR CHRONIC, W/O HEMOR OR PERF SNOMED Code(s): 90623875 Plan: 1. Hb stable 2. Continue TPN 3. Further treatment recommendations as per Dr. Rubi
--- NOTE | 2017-08-24 15:49 | P.PN ---
Subjective Progress Note Date: 08/24/17 A 82-year-old male patient, known history of coronary artery disease appears bypass surgery back in the year 1999 that was complicated by development of a right-sided CVA and expressive aphasia and the patient has been able to manage himself relatively well over this past 17 years and he has been apparently quite active with assisting devices such as wheelchairs. The patient was subsequently diagnosed having prostate cancer for which she was treated with radiation therapy. 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 The patient has also hypertension and seizure disorder in addition to multiple kidney stones. The patient came into the hospital because of nausea and vomiting and abdominal pain. Apparently was not responding to antibiotic medication. 24 hours prior to him coming to hospital the patient was unable to eat or drink. At that point, the patient came into the hospital on the CAT scan of the abdomen was done that showed cholelithiasis, 5 mm hepatic lesion near the dome within the left lobe of the liver and there was no other hepatic lesions seen and there was no evidence of any intrahepatic biliary dilatation. There was a chronic right UPJ junction obstruction with mild right-sided hydronephrosis and renal cysts. There was also gastric dilation with air-fluid and fat fluid level. Thickening of the descending duodenum measuring up to 9 mm in thickness and perienteric inflammatory changes were also seen as there was also a fasciculation of the fat plane between the pancreatic head and the duodenum. There was a mild pancreatic parenchymal atrophy. No ductal dilatation. No pancreatic masses seen. There was consideration of luminal narrowing within the descending duodenum approximately 3 cm of stricture/ narrowing was suspected. At that point, GI was consulted and the patient underwent an EGD and the patient was found to have a large duodenal ulcer involving the posterior bald area and proximal descending duodenum with evidence of partial obstruction including some retained food debris is an secretion in the duodenal bulb and in the stomach and there was also some changes in the esophagus consistent with some stomach content regurgitation. The patient also had a general surgery evaluation. This morning, the patient was having increased shortness of breath. The patient was found to be tachypneic and he had a lot of gurgling noises it's coming from his chest. Note that the patient is unable to speak or express his concerns. Blood gases was done that showed no significant hypoxemia or hypercapnia. Nevertheless the patient continued to be why dyspneic and short of breath and tachypneic. A CAT scan of the chest was done that showed no the 70 pulmonary embolism. There is thoracic aortic aneurysm measuring 4.3 cm in size at the level of the Route. There is a small hiatal hernia. Limited atelectatic changes in lung bases versus consolidation greater on the right compared to left and there was evidence of small pleural effusions. The patient got moved to the intensive care unit. The patient was initially filed on a BiPAP which she failed. He was found to be actively bronchus spastic and wheezy. At that point I intubated this patient and put him on a mechanical ventilator. Post intubation there was foul-smelling purulent material aspirated from his trachea through the orotracheal tube and sent for cultures. The patient was also covered with antibiotics and the patient was started on a combination of Zosyn and vancomycin. Family is at the bedside. I updated the and the daughter regarding these changes. They agreed on a short-term mechanical ventilation due to the above-mentioned events. Note that the patient also has a PICC line in his left upper extremity and he was started on TPN for nutritional support. He has developed some hyponatremia over the past few days and the sodium level is down to 128. Post intubation blood gas showed a pH of 7.35 with a pCO2 32 and pO2 of more than 400. This was on the FiO2 100% with a PEEP of 5 and tidal volume of 500 with a rate of 22. Post intubation chest x-ray showed adequate positioning of the V2. The patient has a pacemaker in place. Sternal wires are all in place. Is in place in the right upper extremity. The patient is developing a new infiltration of the right lung. NG tube is also in place. On 08/24/2017, I'm seeing this patient for a follow-up. The patient was intubated yesterday based on worsening respiratory status and respiratory failure. Note that post intubation the patient had copious amount of purulent respiratory secretions that were suctioned out and sent for cultures. The patient remains on a combination of Zosyn and vancomycin. Chest x-ray from today is essentially unchanged with some chronic changes in the right lung at the ET tube is in a good location. Clinically however the patient is much more rested in terms of the breathing. He remains on assist control mode at the rate of 22, tidal volume of 500 with a PEEP of 5 and FiO2 is down to 50%. Oxygenation improved, and the patient's current pH is at 7.5 with a pCO2 29 and pO2 of 124 and this was done and FiO2 of 40%. The patient remains sedated Diprivan is calm and comfortable. He is receiving TPN for this reason support. A follow-up CAT scan of the head was done on this morning and it showed evolving left temporal and occipital infarct. There is an enlarging left parietal subdural hematoma which appears acute on chronic. There is also involvement of infarction within the left cerebellar hemisphere and there is also markedly widening of the left sylvian fissure which may reflect old cortical infarction. There is also bilateral atrophic changes and chronic white matter ischemic disease. Obviously the patient has evolving infarcts compared to the old CVA that was noted in the earlier CAT scan. The patient is still on TPN for nutritional support. He is making adequate amount of urine output. No fever or chills on today's evaluation. Atelectatic discussion with the patient's family and extended to them the CAT scan findings. As such is out , this point in time is worse especially with development and evolution of a large left-sided CVA which involves the parietal occipital and left cerebellar hemisphere. Objective - Vital Signs Vital signs: Vital Signs Temp 97.9 F 08/24/17 12:04 Pulse 95 08/24/17 15:35 Resp 20 08/24/17 13:37 BP 106/56 08/24/17 13:37 Pulse Ox 98 08/24/17 13:37 Intake & Output 08/23/17 08/24/17 08/24/17 18:59 06:59 18:59 Intake Total 1230 1785 1225 Output Total 1790 955 460 Balance -560 830 765 Weight 88.5 kg 89.2 kg 89.2 kg Intake: IV 1710 975 Mvi, Adult No.4 with Vit 360 225 K 10 ml Trace (Conc-1Ml/ Dose) 1 ml Sodium Acetate 20 meq In Amino Acid 5%- D25w+Lytes*E* 1,000 ml @ 30 mls/hr IV .Q24H [facility] Rx #:[id number] Piperacillin-Tazobactam 3 50 50 .375 gm In Dextrose/Water 1 50ml.bag @ 12.5 mls/hr IVPB Q8H [facility] Rx#: [id number] Sodium Chloride 0.9% 1, 900 600 000 ml @ 75 mls/hr IV . [id number] [facility] Rx#:[id number] levETIRAcetam IV 1,000 mg 400 100 In Saline 1 100ml.bag @ 400 mls/hr IVPB Q12HR [facility] Rx#:[id number] Intake, IV Titration 1230 75 250 Amount Magnesium Sulfate-D5w Pmx 200 1 gm In Dextrose/Water 1 100ml.bag @ 100 mls/hr IVPB Q1H [facility] Rx#: [id number] Mvi, Adult No.4 with Vit 30 K 10 ml Trace (Conc-1Ml/ Dose) 1 ml Sodium Acetate 20 meq In Amino Acid 5%- D25w+Lytes*E* 1,000 ml @ 30 mls/hr IV .Q24H [facility] Rx #:[id number] Mvi, Adult No.4 with Vit 150 K 10 ml Trace (Conc-1Ml/ Dose) 1 ml Sodium Acetate 20 meq In Amino Acid 5%- D25w+Lytes*E* 1,000 ml @ 75 mls/hr IV .BY DURATION [facility] Rx#:[id number] Piperacillin-Tazobactam 3 50 .375 gm In Dextrose/Water 1 50ml.bag @ 12.5 mls/hr IVPB Q8H [facility] Rx#: [id number] Potassium Chloride 10 meq 200 In Water For Injection 1 100ml.bag @ 100 mls/hr IVPB Q1H [facility] Rx#: [id number] Potassium Phosphate 10 100 mmol In Sodium Chloride 0 .9% 100 ml @ 50 mls/hr IV ONCE [facility] Rx#:[id number] Propofol 1,000 mg In 100 Empty Bag 1 bag @ Titrate IV .Q0M [facility] Rx#: [id number] Sodium Chloride 0.9% 1, 75 000 ml @ 100 mls/hr IV . Q10H [facility] Rx#:[id number] Sodium Chloride 0.9% 1, 575 75 000 ml @ 75 mls/hr IV . [id number] [facility] Rx#:[id number] Oral 0 Output: Gastric Drainage 600 Urine 1190 955 460 Straight 500 Other: Voiding Method Indwelling Catheter Indwelling Catheter Indwelling Catheter # Bowel Movements 1 - Exam Elderly male patient currently is intubated on a mechanical ventilator and the patient is sedated with Diprivan and, comfortable. My normal had my normal had there isn'tHead exam was generally normal. There was no scleral icterus or corneal arcus. Mucous membranes were moist. The patient has facial asymmetry with right-sided weakness. Orogastric and orotracheal tube are both in place.Neck was supple and without jugular venous distension, thyromegaly, or carotid bruits. Carotids were easily palpable bilaterally. There was no adenopathy. Lung sounds are diminished and there is diffuse expiratory wheezes throughout the lung chen bilaterally. There is also prolongation of the expiratory phase of breathing.Cardiac exam revealed the PMI to be normally situated and sized. The rhythm was regular and no extrasystoles were noted during several minutes of auscultation. The first and second heart sounds were normal and physiologic splitting of the second heart sound was noted. There were no murmurs, rubs, clicks, or gallops. Pacemaker pocket can be felt and palpated over the left anterior chest area. Abdomen is soft nontender there is no direct tenderness rebound tensile guarding.Abdominal exam revealed normal bowel sounds. The abdomen was soft, non-tender, and without masses, organomegaly , or appreciable enlargement of the abdominal aorta.Examination of the extremities revealed easily palpable radial, femoral and pedal pulses. Noted the patient has a below-knee amputation on the right lower extremity. There was no cyanosis, clubbing or edema. Neurologically the patient is sedated. The patient has evidence of CVA with right-sided hemiplegia and the right upper extremity is obviously weak secondary to the CVA. - Labs CBC & Chem 7: 08/24/17 04:30 08/24/17 04:30 Labs: Abnormal Lab Results - Last 24 Hours (Table) 08/23/17 08/23/17 08/23/17 Range/Units 06:46 17:14 17:39 RBC (4.30-5.90) m/uL Hgb (13.0-17.5) gm/dL Hct (39.0-53.0) % MCHC (31.0-37.0) g/dL Neutrophils # (1.3-7.7) k/uL Lymphocytes # (1.0-4.8) k/uL ABG pCO2 (35-45) mmHg ABG pO2 (83-108) mmHg ABG HCO3 (21-25) mmol/L ABG O2 Saturation (94-97) % Sodium 127 L (137-145) mmol/L Carbon Dioxide (22-30) mmol/L BUN (9-20) mg/dL Glucose (74-99) mg/dL POC Glucose (mg/dL) 193 H (75-99) mg/dL Calcium (8.4-10.2) mg/dL Magnesium (1.6-2.3) mg/dL Iron 4 L (65-175) ug/dL TIBC 221 L (228-460) ug/dL Iron Saturation 1.81 L (15.00-50.00) Ur Random Sodium (30-90) mmol/L 08/24/17 08/24/17 08/24/17 Range/Units 00:46 04:30 04:30 RBC 2.59 L (4.30-5.90) m/uL Hgb 7.1 L (13.0-17.5) gm/dL Hct 23.2 L (39.0-53.0) % MCHC 30.4 L (31.0-37.0) g/dL Neutrophils # 9.8 H (1.3-7.7) k/uL Lymphocytes # 0.2 L (1.0-4.8) k/uL ABG pCO2 (35-45) mmHg ABG pO2 (83-108) mmHg ABG HCO3 (21-25) mmol/L ABG O2 Saturation (94-97) % Sodium 129 L (137-145) mmol/L Carbon Dioxide 17 L (22-30) mmol/L BUN 39 H (9-20) mg/dL Glucose 236 H (74-99) mg/dL POC Glucose (mg/dL) 312 H (75-99) mg/dL Calcium 6.9 L (8.4-10.2) mg/dL Magnesium 2.4 H (1.6-2.3) mg/dL Iron (65-175) ug/dL TIBC (228-460) ug/dL Iron Saturation (15.00-50.00) Ur Random Sodium (30-90) mmol/L 08/24/17 08/24/17 08/24/17 Range/Units 04:50 05:30 05:56 RBC (4.30-5.90) m/uL Hgb (13.0-17.5) gm/dL Hct (39.0-53.0) % MCHC (31.0-37.0) g/dL Neutrophils # (1.3-7.7) k/uL Lymphocytes # (1.0-4.8) k/uL ABG pCO2 29 L (35-45) mmHg ABG pO2 124 H (83-108) mmHg ABG HCO3 18 L (21-25) mmol/L ABG O2 Saturation 100.0 H (94-97) % Sodium (137-145) mmol/L Carbon Dioxide (22-30) mmol/L BUN (9-20) mg/dL Glucose (74-99) mg/dL POC Glucose (mg/dL) 289 H (75-99) mg/dL Calcium (8.4-10.2) mg/dL Magnesium (1.6-2.3) mg/dL Iron (65-175) ug/dL TIBC (228-460) ug/dL Iron Saturation (15.00-50.00) Ur Random Sodium <5 L (30-90) mmol/L 08/24/17 Range/Units 12:14 RBC (4.30-5.90) m/uL Hgb (13.0-17.5) gm/dL Hct (39.0-53.0) % MCHC (31.0-37.0) g/dL Neutrophils # (1.3-7.7) k/uL Lymphocytes # (1.0-4.8) k/uL ABG pCO2 (35-45) mmHg ABG pO2 (83-108) mmHg ABG HCO3 (21-25) mmol/L ABG O2 Saturation (94-97) % Sodium (137-145) mmol/L Carbon Dioxide (22-30) mmol/L BUN (9-20) mg/dL Glucose (74-99) mg/dL POC Glucose (mg/dL) 276 H (75-99) mg/dL Calcium (8.4-10.2) mg/dL Magnesium (1.6-2.3) mg/dL Iron (65-175) ug/dL TIBC (228-460) ug/dL Iron Saturation (15.00-50.00) Ur Random Sodium (30-90) mmol/L Microbiology - Last 24 Hours (Table) 08/23/17 11:53 Gram Stain - Preliminary Sputum Sputum Culture - Preliminary Gram Neg Bacilli Presumptive Staph aureus 08/19/17 10:35 Blood Culture - Preliminary Blood No Growth after 120 hours 08/23/17 09:29 Urine Culture - Final Urine,Catheterized Assessment and Plan Plan: Assessment 1 acute aspiration with secondary respiratory failure. The patient remains intubated on a mechanical ventilator. He is oxygenating and ventilating well. He is covered with a combination of Zosyn and vancomycin. Chest x-ray findings are stable for now. 2 evolving left temporal/occipital infarct based on the CAT scan was done this morning on 08/24/2017. In addition there is enlarging in the left parietal subdural hematoma which appears acute on chronic and there is also evolving infarction involving the left cerebellar hemisphere and these are obviously new findings compared to the previous study that was done on 08/21/2017. 3 history of CVA with right-sided hemiplegia, expressive aphasia, visual impairment of memory loss 4 severe peripheral vascular disease with below-knee amputation on the right 5 coronary artery disease with previous bypass surgery back in 1999 6 seizure disorder 7 gastric outlet obstruction as the patient is found to have a large duodenal ulcer involving the posterior bubbled area and proximal descending duodenum with evidence of partial obstruction 8 prostate cancer. 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 Obviously these CAT scan findings of the head are new findings and infiltrate this patient's overall outcome and impair his ability to successfully wean from the mechanical ventilator specially that the evolving stroke is quite large and informing the rest of the left cortical structures including the temporal and occipital lobe and there is also involvement of the cerebellar structures on the left. I'm not sure if the patient is going to wean off the mechanical ventilator successfully. He has significant impairment at baseline and he has been suffering from an old stroke and he has been having difficulties with mobility specially with a below-knee amputation on the right lower extremity. His aspiration is still being treated. The patient remains nothing by mouth knowing that he has a gastric outlet obstruction from a large duodenal ulcer causing edema and anatomic obstruction at the level of the duodenum and the patient on TPN for nutritional support. Based on all this, we decided to continue the treatment and once the patient's family is ready we will give the patient a trial of extubation with understanding that he may not be able to would stand extubation due to his significant impairment due to his significant impairment in the urologic neurologic and probable poor ability to maintain his airways. I'm going to give this patient a sedation holiday. We'll stop the sedation and assess his underlying neuro status. I am going to repeat the CAT scan of the head tomorrow to assess the progression of the stroke. I'm going to talk to neurology. Unfortunately nothing much can be done to this patient. May ultimately consider comfort care measures if the patient shows very impaired neurologic functions with the evolving strokes. The family was agreeable. We'll continue to follow make further recommendations based on this patient's progress. Is a critically care evaluation was done in 40 minutes. Time with Patient: Greater than 30
[2017-08-24 17:58] LABS: Glucose,Whole Blood 292 mg/dL (75-99)
[2017-08-24 20:22] VITALS: TEMP 99.2
[2017-08-24] MEDS: PROPOFOL 1,000 MG in EMPTY BAG 1 BAG IV SCH (20:31)
[2017-08-24] MEDS ORDERED: ATROPINE OPHTH SOLN 1% 5ML BTL SUBLINGUAL PRN (21:52)
[2017-08-24] MEDS ORDERED: MORPHINE SULFATE 2 MG/ML SYRINGE IV PRN (21:52)
[2017-08-24] MEDS ORDERED: SCOPOLAMINE 1.5MG/72HR PATCH TRANSDERM PRN (21:52)
[2017-08-24] MEDS ORDERED: MORPHINE SULFATE 2 MG/ML SYRINGE IVP ONE (21:52)
[2017-08-24 22:28] VITALS: BP 110/63; PULSE 98; RESP 30
[2017-08-24] MEDS ORDERED: MORPHINE SULFATE (100 MG/2 ML) 100 MG in SODIUM CHLORIDE 0.9% 100 ML IV SCH (22:30)
== END 2017-08-24 23:39 | disposition hospice, inpatient (51) | DRG 383 ==
LOC: EC 09:32 → 5MS5E 12:50 → OBSVTOIN 08-22 08:52 → 6ICU 08-23 09:10
PROVIDERS: ADMIT Internal Medicine; ATTEND Internal Medicine
PROC: 0DB98ZX Excision of Duodenum, Via Natural or Artificial Opening Endoscopic, Diagnostic (ICD-10-PCS; 2017-08-20)
PROC: 02HV33Z Insertion of Infusion Device into Superior Vena Cava, Percutaneous Approach (ICD-10-PCS; principal; 2017-08-22 11:20)
PROC: 5A1945Z Respiratory Ventilation, 24-96 Consecutive Hours (ICD-10-PCS; 2017-08-23)
PROC: 0BH18EZ Insertion of Endotracheal Airway into Trachea, Via Natural or Artificial Opening Endoscopic (ICD-10-PCS; 2017-08-23)
DX: K26.9 Duodenal ulcer, unspecified as acute or chronic, without hemorrhage or perforation (principal); J69.0 Pneumonitis due to inhalation of food and vomit; J96.00 Acute respiratory failure, unspecified whether with hypoxia or hypercapnia; E87.4 Mixed disorder of acid-base balance; G93.41 Metabolic encephalopathy; A41.9 Sepsis, unspecified organism; I62.01 Nontraumatic acute subdural hemorrhage; E46 Unspecified protein-calorie malnutrition; I50.32 Chronic diastolic (congestive) heart failure; D62 Acute posthemorrhagic anemia; E87.1 Hypo-osmolality and hyponatremia; I69.351 Hemiplegia and hemiparesis following cerebral infarction affecting right dominant side; K31.1 Adult hypertrophic pyloric stenosis; N13.2 Hydronephrosis with renal and ureteral calculous obstruction; I71.2 Thoracic aortic aneurysm, without rupture; K29.80 Duodenitis without bleeding; I11.0 Hypertensive heart disease with heart failure; I65.22 Occlusion and stenosis of left carotid artery; E86.0 Dehydration; E61.1 Iron deficiency; E78.5 Hyperlipidemia, unspecified; G40.909 Epilepsy, unspecified, not intractable, without status epilepticus; I69.320 Aphasia following cerebral infarction; I69.311 Memory deficit following cerebral infarction; I69.398 Other sequelae of cerebral infarction; I25.10 Atherosclerotic heart disease of native coronary artery without angina pectoris; I73.9 Peripheral vascular disease, unspecified; K21.9 Gastro-esophageal reflux disease without esophagitis; K31.84 Gastroparesis; K44.9 Diaphragmatic hernia without obstruction or gangrene; K52.9 Noninfective gastroenteritis and colitis, unspecified; K76.9 Liver disease, unspecified; K80.20 Calculus of gallbladder without cholecystitis without obstruction; N28.1 Cyst of kidney, acquired; N40.0 Benign prostatic hyperplasia without lower urinary tract symptoms; I69.391 Dysphagia following cerebral infarction; Z79.82 Long term (current) use of aspirin; Z79.899 Other long term (current) drug therapy; Z80.42 Family history of malignant neoplasm of prostate; Z82.5 Family history of asthma and other chronic lower respiratory diseases; Z85.46 Personal history of malignant neoplasm of prostate; Z87.11 Personal history of peptic ulcer disease; Z87.442 Personal history of urinary calculi; Z89.511 Acquired absence of right leg below knee; Z92.3 Personal history of irradiation; Z95.0 Presence of cardiac pacemaker; Z95.1 Presence of aortocoronary bypass graft
CPT/HCPCS: 36415; 36569; 36600; 43239; 70450; 70496; 70498; 71045; 71275; 74177; 76937; 77001; 80048; 80053; 80177; 81001; 81003; 82040; 82150; 82330; 82378; 82570; 82728; 82805; 83036; 83540; 83550; 83605; 83690; 83735; 83930; 83935; 84100; 84295; 84300; 84478; 84540; 85025; 85027; 85379; 85610; 85730; 86301; 87040; 87070; 87077; 87086; 87186; 87205; 88305; 94002; 94003; 94640; 94660; 94770; 96361; 96374; 96375; 99285